=== PATIENT | female | born 1945 | race Caucasian/White ===

== ENCOUNTER 2017-07-14 04:58 | Inpatient (IN) | payer MEDICARE ==
[2017-07-14 05:56] LABS: Hematocrit 35 % (35-47); Hemoglobin 11.7 g/dl (12.0-16.0); Mean Corpuscular HGB Conc 34 g/dl (31-36); Mean Corpuscular Hemoglobin 31 pg (27-31); Mean Corpuscular Volume 90 fL (80-97); Mean Platelet Volume 8 um3 (7.4-10.4); Red Blood Count 3.85 10^6/ul (4.0-5.4); Red Cell Distribution Width 16 % (10.5-15); White Blood Count 7.7 10^3/ul (3.5-10.8)
[2017-07-14 06:13] LABS: Albumin 3.1 g/dL (3.2-5.2); Calcium 8.7 mg/dL (8.6-10.3); EGFR African American 69.7 (>60); EGFR Non-African American 54.2 (>60); Globulin 2.9 g/dL (2-4); Magnesium 1.9 mg/dL (1.9-2.7); Potassium 2.9 mmol/L (3.5-5.0); Troponin I 0.01 ng/mL (<0.04)
[2017-07-14] MEDS ORDERED: Potassium Chlor TAB* 20 MEQ TAB.ER PO ONE (06:24)
[2017-07-14 06:26] LABS: TSH (Thyroid Stimulating Horm) 2.22 mcIU/mL (0.34-5.60)
[2017-07-14] MEDS ORDERED: Potassium Chloride LIQUID* 20 MEQ PACKET ONE (06:35)
[2017-07-14] MEDS ORDERED: Potassium Chloride LIQUID* 20 MEQ PACKET PO ONE (06:36)
[2017-07-14] MEDS ORDERED: Vancomycin(*) 1,000 MG VIAL IVPB SCH (07:00)
[2017-07-14] MEDS ORDERED: cefTRIAXone(*) 1 GM in NS 0.9% 50 ML* 50 ML IVPB ONE (07:01)
[2017-07-14] MEDS ORDERED: Magnesium Sulfate 1 GM IV* 1 GM/100 ML BAG IV ONE (07:39)
[2017-07-14] MEDS ORDERED: Vancomycin(*) 1,000 MG in D5W 250 ML BAG* 250 ML IVPB ONE (08:00)
--- NOTE | 2017-07-14 08:04 | RAD ---
INDICATION: Chest pain COMPARISON: Most recent chest x-rays dated July 10, 2017 TECHNIQUE: Single AP portable view of the chest was obtained. FINDINGS: Image quality is compromised due to the relative inferiority of a portable chest x-ray. The left upper chest cardiac pacemaker with 2 leads overlying the heart is unchanged in position. The heart and mediastinum exhibit normal size and contour. There is worsening parenchymal density overlying the inferior portion of the right upper lobe with less well-defined density obscuring the bilateral lung bases. There is bibasilar costophrenic angle blunting.. Visualized bones are normal for the patient's age. IMPRESSION: Chest x-ray findings are consistent with worsening and more consolidative pneumonia and involving the inferior aspect of the right upper lobe. There is potentially a similar process at the bilateral lung bases.
[2017-07-14] MEDS: Dronedarone TAB* 400 MG PO SCH ×2 (09:57→22:11)
[2017-07-14] MEDS: Cholecalciferol TAB* 1000 UNITS PO SCH (09:57)
[2017-07-14] MEDS: Atorvastatin* 20 MG TAB PO SCH (09:57)
[2017-07-14] MEDS: Metoprolol Tartrate TAB* 25 MG PO SCH ×2 (09:57→22:11)
[2017-07-14] MEDS ORDERED: cefTRIAXone VIAL(*) 1,000 MG in D5W 50 ML BAG* 50 ML IVPB ONE (10:00)
--- NOTE | 2017-07-14 11:54 | HP ---
HISTORY AND PHYSICAL: DATE OF ADMISSION: 07/14/17 PRIMARY CARE PROVIDER: Manoj Velasquez DO PRIMARY ENTRY LEVEL PROJECT COORDINATOR: Dr. Milian. CHIEF COMPLAINT: Progressive shortness of breath, cough outpatient. HISTORY OF PRESENT ILLNESS: Angela Cohen is a 72-year-old female with history of atrial fibrillation on Coumadin, sick sinus syndrome, status post pacemaker, presenting with shortness of breath and cough, has been diagnosed with pneumonia as an outpatient after initially suffering from bronchitis for many weeks. This all started early May when she thinks she had the flu with her symptoms were stuffy nose/nasal congestion, but denies any headaches, fevers, body aches at that time. She states the symptoms progressed after a progressive postnasal drip occurring in early May. She has had mostly clear sputum productive cough, occasionally white and occasionally scant blood. She was prescribed azithromycin on 06/03/17, but called Dr. Milian who forbade her from taking it given interactions with her Coumadin potentially. Cephalexin was prescribed on 06/12/17, but the patient did not take it as she has had elevated INRs with that in the past, so doxycycline 100 mg b.i.d. was prescribed on 06/13/17. She took it for 3 days, checked her INR at home and it shot up to 8.8 and presented to the [facility] Emergency Room, where it was confirmed INR of 8.3 and she stopped the doxycycline and was off any other antibiotics. She still had the symptoms of the cough and eventually saw Dr. Velasquez again and was prescribed clindamycin 300 mg t.i.d., on 07/08/17, five days prior to presentation. She had a chest x-ray done on the , four days prior to presentation which was concerning for potential right-sided pneumonia. Since then, she still felt progressively worse. She denies fevers, but she has had some chills. She has had some dry heating associated with nausea secondary to the postnasal drainage. Her shortness of breath has gotten worse, where she can get winded after just walking across the room. She denies any palpitations. She checked her INR yesterday, it was 2.8, has been on her warfarin 5 mg daily. Has skipped some of her Lipitor, her magnesium and potassium supplementation. Last night, she had some chest pressure centrally that radiated to her back. No abdominal pain. On presentation to the emergency room, repeat imaging showed clear progression of the right-sided pneumonia which is more consolidative involving the inferior aspect of the right upper lobe and potentially involving the bilateral lung bases. She has been afebrile. No leukocytosis. Being admitted for pneumonia, failed outpatient treatment. PAST MEDICAL HISTORY: Atrial fibrillation on Coumadin, sick sinus syndrome, status post permanent pacemaker. MEDICATIONS: 1. Multaq 400 mg b.i.d. 2. Vitamin D 1000 units p.o. daily. 3. Metoprolol tartrate 50 mg b.i.d. 4. Magnesium 250 mg p.o. daily. 5. Atorvastatin 20 mg daily. 6. Warfarin 5 mg daily. 7. Potassium chloride 10 mEq b.i.d. ALLERGIES: PENICILLINS produced reported rash approximately 40 years ago. Also listed are AZITHROMYCIN, CEPHALEXIN, and DOXYCYCLINE given interactions with warfarin. FAMILY HISTORY: Mother with breast cancer metastatic to the brain. Dad with reported heart disease, at age 72. SOCIAL HISTORY: A never smoker. Occasionally drinks a glass of wine. Her medical surrogate is her daughter, Carmen Smith. REVIEW OF SYSTEMS: Complete 14-point review of systems is negative except as per HPI. PHYSICAL EXAMINATION GENERAL APPEARANCE: No acute distress, sitting in the hospital bed, nonlabored breathing. VITAL SIGNS: Blood pressure 135/92, respiratory rate 20 to 23, heart rate 96 to 100, temperature 98.4 on 2 L. HEENT: Normocephalic, atraumatic. Pupils equal, round, and reactive to light. Extraocular motions intact. Oral mucous membranes moist. No oropharynx lesions. NECK: Supple. PULMONARY: Coarse rhonchi in the middle right lung field. No rales, no wheezing. CARDIOVASCULAR: Regular rate and rhythm. No murmurs, rubs, or gallops. Slightly tachycardic. ABDOMEN: Soft, nontender, nondistended. No peritoneal signs. No rebound or guarding. No Busch's sign. EXTREMITIES: Warm and well perfused. Trace edema in the bilateral ankles. NEUROLOGICAL: Cranial nerves II through XII intact. Moving her extremities. Hip flexion 5/5. Family Manager strength 5/5. SKIN: No rashes. No lesions. LABORATORY DATA: White count 7.7, hemoglobin 11.7, hematocrit 35, platelets 235,000. INR 4.38, PTT 44.6, sodium 137, potassium 2.9, chloride 100, carbon dioxide 28, BUN 12, creatinine 1.00, glucose 111, TSH 2.22, total protein 6.0. LFTs within normal limits. IMAGING: Chest x-ray consistent with worsening and more consolidative pneumonia involving the inferior aspect of the right upper lobe. This potentially is bilateral lung bases. EKG: Atrial fibrillation, Q-wave in V1, QRS interval 173, looks paced. ASSESSMENT AND PLAN: 1. Angela Cohen is a 72-year-old female with atrial fibrillation on Coumadin, presenting with progressive lower right upper lobe pneumonia, has failed clindamycin and had interactions with doxycycline. She had been admitted for pneumonia. Vancomycin will be continued along with ceftriaxone. We will get streptococcus pneumonia urine antigen, sputum culture, blood culture, urinalysis. She is nontoxic appearing. 2. For her atrial fibrillation, we will continue her Multaq 400 mg b.i.d., aggressively replete her electrolytes as needed to keep potassium above 4, magnesium above 2. Her INR is elevated at 4.3. We will hold her warfarin and monitor daily. We will also continue metoprolol 50 mg b.i.d. She is a full code. She can eat a heart healthy diet. Medical surrogate is daughter, Carmen Smith. [id number]/[facility] #: [id number] [facility]
[2017-07-14 15:34] LABS: Urine Bacteria Absent (Absent); Urine Bilirubin Negative (Negative); Urine Glucose Negative (Negative); Urine Nitrite Negative (Negative)
[2017-07-15 07:48] LABS: Hematocrit 33 % (35-47); Hemoglobin 10.9 g/dl (12.0-16.0); Mean Corpuscular HGB Conc 33 g/dl (31-36); Mean Corpuscular Hemoglobin 30 pg (27-31); Mean Corpuscular Volume 91 fL (80-97); Mean Platelet Volume 8 um3 (7.4-10.4); Red Blood Count 3.65 10^6/ul (4.0-5.4); Red Cell Distribution Width 16 % (10.5-15); White Blood Count 5.4 10^3/ul (3.5-10.8)
[2017-07-15 08:12] LABS: BUN/Creatinine Ratio 9.8 (8-20); Calcium 8.5 mg/dL (8.6-10.3); EGFR African American 68.1 (>60); Potassium 3.6 mmol/L (3.5-5.0)
[2017-07-15] MEDS: Potassium Chlor TAB* 10 MEQ TAB.ER PO SCH ×2 (08:16→20:38)
[2017-07-15] MEDS: Atorvastatin* 20 MG TAB PO SCH (08:16)
[2017-07-15] MEDS: Metoprolol Tartrate TAB* 25 MG PO SCH ×2 (08:16→20:38)
[2017-07-15] MEDS: Dronedarone TAB* 400 MG PO SCH ×2 (08:16→20:38)
[2017-07-15] MEDS: Magnesium Oxide TAB* 400 MG PO SCH (08:16)
[2017-07-15] MEDS: cefTRIAXone VIAL(*) 1,000 MG in D5W 50 ML BAG* 50 ML IVPB SCH (08:17)
[2017-07-15] MEDS: Cholecalciferol TAB* 1000 UNITS PO SCH (08:17)
[2017-07-15] MEDS: Warfarin TAB(*) 4 MG PO SCH (16:18)
--- NOTE | 2017-07-15 16:34 | PN ---
Subjective Date of Service: 07/15/17 Interval History: Patient states she feels much better today. Had one episode of hypoxia when ambulating to the bathroom without oxygen on. Patient's oxygen was able to be weaned down to 1L at rest. Patient has a non productive cough that has decreased in frequency since being admitted. Patient has continued post nasal drip which has been making her nauseated. Patient denies CP, Increased SOB, Vomiting, F/C, abdominal Pain, dysuria, or other pain. Family History: Unchanged from Admission Social History: Unchanged from Admission Past Medical History: Unchanged from Admission Objective Active Medications: Atorvastatin Calcium (Lipitor*) 20 mg PO DAILY [facility] Last Admin: 07/15/17 08:16 Dose: 20 mg Cholecalciferol (Vitamin D Tab*) 1,000 units PO DAILY [facility] Last Admin: 07/15/17 08:17 Dose: 1,000 units Dronedarone (Multaq Tab*) 400 mg PO BID [facility] Last Admin: 07/15/17 08:16 Dose: 400 mg Guaifenesin (Mucinex*) 1,200 mg PO BID [facility] Ceftriaxone Sodium 1,000 mg/ (Dextrose) 50 mls @ 200 mls/hr IVPB Q24H [facility] Last Admin: 07/15/17 08:17 Dose: 200 mls/hr Magnesium Oxide (Magox 400 Tab*) 400 mg PO DAILY [facility] Last Admin: 07/15/17 08:16 Dose: 400 mg Metoprolol Tartrate (Lopressor Tab*) 50 mg PO BID [facility] Last Admin: 07/15/17 08:16 Dose: 50 mg Potassium Chloride (Klor Con Er Tab*) 10 meq PO BID [facility] Last Admin: 07/15/17 08:16 Dose: 10 meq Warfarin Sodium (Coumadin Tab(*)) 4 mg PO DAILY@1700 [facility] PRN Reason: Protocol Last Admin: 07/15/17 16:18 Dose: 4 mg Vital Signs 07/14/17 07/14/17 07/14/17 19:55 20:00 23:44 Temperature 98.1 F 97.8 F Pulse Rate 95 81 Respiratory 16 16 20 Rate Blood Pressure 144/90 119/76 (mmHg) O2 Sat by Pulse 93 96 Oximetry 07/15/17 07/15/17 07/15/17 03:48 08:00 08:41 Temperature 98.4 F 98.8 F Pulse Rate 92 82 Respiratory 20 16 16 Rate Blood Pressure 171/92 127/71 (mmHg) O2 Sat by Pulse 97 97 Oximetry 07/15/17 11:49 Temperature 98.4 F Pulse Rate 94 Respiratory 16 Rate Blood Pressure 115/79 (mmHg) O2 Sat by Pulse 96 Oximetry Oxygen Devices in Use Now: Nasal Cannula - 1L Appearance: Patient is a 72yo female who appears stated age and is sitting in the bed in NAD. Eyes: No Scleral Icterus, PERRLA Ears/Nose/Mouth/Throat: NL Teeth, Lips, Gums, Clear Oropharnyx, Mucous Membranes Moist, - - No Post Nasal Drip Noted Neck: NL Appearance and Movements; NL JVP, Trachea Midline Respiratory: Symmetrical Chest Expansion and Respiratory Effort, - - Slight wheezes in right middle lobe. Cardiovascular: NL Sounds; No Murmurs; No JVD, No Edema, - - Irregulary Irregular rhythm. Abdominal: NL Sounds; No Tenderness; No Distention, No Hepatosplenomegaly Lymphatic: No Cervical Adenopathy Extremities: No Edema, No Clubbing, Cyanosis Skin: No Rash or Ulcers, No Nodules or Sclerosis Neurological: Alert and Oriented x 3 Result Diagrams: 07/15/17 07:38 07/15/17 16:11 Microbiology and Other Data: Microbiology 07/14/17 07:27 Aerobic Blood Culture - Preliminary Blood Venous No Growth Day 1 Anaerobic Blood Culture - Preliminary No Growth Day 1 07/14/17 07:18 Aerobic Blood Culture - Preliminary Blood Venous No Growth Day 1 Anaerobic Blood Culture - Preliminary No Growth Day 1 07/14/17 15:00 Nasal Screen MRSA (PCR)(KAMALJIT) - Final Nasal Mrsa Negative 07/14/17 15:00 Streptococcus pneumoniae Ag Screen - Final Urine Negative S. pneumo Antigen Assess/Plan/Problems-Billing Assessment: Patient is a 72yo female with a PMH significant for Afib on coumadin, and SSS with pacemaker who presents with lobar pneumonia after URI in May who is improving on Ceftriaxone. - Patient Problems (1) Community acquired pneumonia Current Visit: Yes Status: Acute Code(s): J18.9 - PNEUMONIA, UNSPECIFIED ORGANISM SNOMED Code(s): 732003476 Comment: RUL pneumonia, treated briefly and unsuccessfully with Azithromycin, Keflex, Clindamycin, and Doxycycline. Keflex and Doxycycline made coumadin supratherapeutic. Azithromycin not used for concerns of interactions with Multaq. Clindamycin course completed with no effect. Improving on Ceftriaxone. ID consult pending for recommendations on Atypical Bacteria coverage. (2) Afib Current Visit: Yes Status: Acute Code(s): I48.91 - UNSPECIFIED ATRIAL FIBRILLATION SNOMED Code(s): 16289390 Comment: Patient is in Afib with RBBB. Patient is anticoagulated on coumadin with a most recent INR of 2.93. Will restart Warfarin at 4mg dose and monitor. (3) Coumadin toxicity Current Visit: Yes Status: Acute Code(s): T45.511A - POISONING BY ANTICOAGULANTS, ACCIDENTAL, INIT SNOMED Code(s): 38111179 Comment: INR at 4.30 at admission. Down to 2.93. Will monitor. (4) Hyperlipidemia Current Visit: Yes Status: Acute Code(s): E78.5 - HYPERLIPIDEMIA, UNSPECIFIED SNOMED Code(s): 02487142 Comment: Continue Atorvastatin (5) Pacemaker Current Visit: Yes Status: Acute Code(s): Z95.0 - PRESENCE OF CARDIAC PACEMAKER SNOMED Code(s): 063201407 Comment: For SSS. Had run of 7 paced beats which was asymptomatic. Electrolytes pending. (6) QT prolongation Current Visit: Yes Status: Acute Code(s): R94.31 - ABNORMAL ELECTROCARDIOGRAM [ECG] [EKG] SNOMED Code(s): 140003759 Comment: QTc at 580 at admission, Decreased to 560 after repletion of Mg++ and K+. Will recheck and attempt to keep above 2.0 and 4.0 respectively. Will avoid QT prolonging drugs. On dronaderone. (7) DVT prophylaxis Current Visit: Yes Status: Acute Code(s): VGX2190 - SNOMED Code(s): 067121402 Comment: Therapeutic on Warfarin (8) Full code status Current Visit: Yes Status: Acute Code(s): Z78.9 - OTHER SPECIFIED HEALTH STATUS SNOMED Code(s): 109550616 Status and Disposition: Patient is admitted inpatient, will discharge when medically stable.
[2017-07-15 16:55] LABS: BUN/Creatinine Ratio 11.5 (8-20); Calcium 8.8 mg/dL (8.6-10.3); EGFR African American 60.5 (>60); EGFR Non-African American 47.1 (>60); Magnesium 2.3 mg/dL (1.9-2.7); Potassium 4.1 mmol/L (3.5-5.0)
[2017-07-15] MEDS: guaiFENesin ER TAB 600 MG PO SCH (20:38)
[2017-07-15] MEDS ORDERED: LORazepam INJ* 2 MG/ML 1 ML VIAL IV PRN (23:30)
[2017-07-16 06:25] LABS: Hematocrit 35 % (35-47); Hemoglobin 11.7 g/dl (12.0-16.0); Mean Corpuscular HGB Conc 33 g/dl (31-36); Mean Corpuscular Hemoglobin 30 pg (27-31); Mean Corpuscular Volume 91 fL (80-97); Mean Platelet Volume 8 um3 (7.4-10.4); Red Cell Distribution Width 17 % (10.5-15); White Blood Count 6.3 10^3/ul (3.5-10.8)
[2017-07-16 06:39] LABS: Calcium 8.9 mg/dL (8.6-10.3); EGFR African American 75.8 (>60); EGFR Non-African American 58.9 (>60); Magnesium 2.2 mg/dL (1.9-2.7); Potassium 3.7 mmol/L (3.5-5.0)
[2017-07-16] MEDS: cefTRIAXone VIAL(*) 1,000 MG in D5W 50 ML BAG* 50 ML IVPB SCH (08:19)
[2017-07-16] MEDS: Metoprolol Tartrate TAB* 25 MG PO SCH ×2 (08:20→19:58)
[2017-07-16] MEDS: Cholecalciferol TAB* 1000 UNITS PO SCH (08:20)
[2017-07-16] MEDS: guaiFENesin ER TAB 600 MG PO SCH ×2 (08:20→19:57)
[2017-07-16] MEDS: Atorvastatin* 20 MG TAB PO SCH (08:20)
[2017-07-16] MEDS: Dronedarone TAB* 400 MG PO SCH ×2 (08:20→19:58)
[2017-07-16] MEDS: Potassium Chlor TAB* 10 MEQ TAB.ER PO SCH ×2 (08:20→19:58)
[2017-07-16] MEDS: Magnesium Oxide TAB* 400 MG PO SCH (08:20)
--- NOTE | 2017-07-16 13:47 | PN ---
Subjective Date of Service: 07/16/17 Interval History: Patient had episode of delirium overnight presumably due to ativan. Patient does not remember anything after the injection. Patient has moderate nausea and GERD discomfort. Patient SOB when walking to the BR. O2 increased back to 1.5L due to hypoxia after ambulation. Patient denies other CP, Abdominal pain, Constipation, diarrhea, dysuria, or other pain. Patient denies F/C, palpitations , dizziness or other signs of arrhythmia. Family History: Unchanged from Admission Social History: Unchanged from Admission Past Medical History: Unchanged from Admission Objective Active Medications: Atorvastatin Calcium (Lipitor*) 20 mg PO DAILY [facility] Last Admin: 07/16/17 08:20 Dose: 20 mg Cholecalciferol (Vitamin D Tab*) 1,000 units PO DAILY [facility] Last Admin: 07/16/17 08:20 Dose: 1,000 units Dronedarone (Multaq Tab*) 400 mg PO BID [facility] Last Admin: 07/16/17 08:20 Dose: 400 mg Guaifenesin (Mucinex*) 1,200 mg PO BID [facility] Last Admin: 07/16/17 08:20 Dose: 1,200 mg Ceftriaxone Sodium 1,000 mg/ (Dextrose) 50 mls @ 200 mls/hr IVPB Q24H [facility] Last Admin: 07/16/17 08:19 Dose: 200 mls/hr Magnesium Oxide (Magox 400 Tab*) 400 mg PO DAILY [facility] Last Admin: 07/16/17 08:20 Dose: 400 mg Metoprolol Tartrate (Lopressor Tab*) 50 mg PO BID [facility] Last Admin: 07/16/17 08:20 Dose: 50 mg Potassium Chloride (Klor Con Er Tab*) 10 meq PO BID [facility] Last Admin: 07/16/17 08:20 Dose: 10 meq Warfarin Sodium (Coumadin Tab(*)) 4 mg PO DAILY@1700 [facility] PRN Reason: Protocol Last Admin: 07/15/17 16:18 Dose: 4 mg Vital Signs - 8 hr 07/16/17 07/16/17 07/16/17 08:00 08:17 11:20 Temperature 97.3 F Pulse Rate 114 95 Respiratory 18 18 20 Rate Blood Pressure 123/86 138/78 (mmHg) O2 Sat by Pulse 95 96 Oximetry Oxygen Devices in Use Now: Nasal Cannula - 1.5L Appearance: Patient is a 72yo female who appears younger than stated age and is sitting in the bed in NAD. Eyes: No Scleral Icterus, PERRLA Ears/Nose/Mouth/Throat: NL Teeth, Lips, Gums, Clear Oropharnyx, Mucous Membranes Moist Neck: NL Appearance and Movements; NL JVP, Trachea Midline Respiratory: Symmetrical Chest Expansion and Respiratory Effort, Clear to Auscultation Cardiovascular: NL Sounds; No Murmurs; No JVD, RRR, - - 1+ symmetrical edema in B/L LE. Pulses 2+ in B/L Radial, DP and PT areas. Abdominal: NL Sounds; No Tenderness; No Distention, No Hepatosplenomegaly Lymphatic: No Cervical Adenopathy Extremities: No Edema, No Clubbing, Cyanosis Skin: No Rash or Ulcers, No Nodules or Sclerosis Neurological: Alert and Oriented x 3 Result Diagrams: 07/16/17 06:02 07/16/17 06:02 Microbiology and Other Data: Microbiology 07/14/17 07:27 Aerobic Blood Culture - Preliminary Blood Venous No Growth Day 1 Anaerobic Blood Culture - Preliminary No Growth Day 1 07/14/17 07:18 Aerobic Blood Culture - Preliminary Blood Venous No Growth Day 1 Anaerobic Blood Culture - Preliminary No Growth Day 1 07/14/17 15:00 Nasal Screen MRSA (PCR)(KAMALJIT) - Final Nasal Mrsa Negative 07/14/17 15:00 Streptococcus pneumoniae Ag Screen - Final Urine Negative S. pneumo Antigen Assess/Plan/Problems-Billing Assessment: Patient is a 72yo female with a PMH significant for Afib on coumadin, and SSS with pacemaker who presents with lobar pneumonia after URI in May who is improving on Ceftriaxone. - Patient Problems (1) Community acquired pneumonia Current Visit: Yes Status: Acute Code(s): J18.9 - PNEUMONIA, UNSPECIFIED ORGANISM SNOMED Code(s): 776068182 Comment: RUL pneumonia, treated briefly and unsuccessfully with Azithromycin, Keflex, Clindamycin, and Doxycycline. Keflex and Doxycycline made coumadin supratherapeutic. Azithromycin not used for concerns of interactions with Multaq. Clindamycin course completed with no effect. Improving on Ceftriaxone. Appreciate ID consult. States ok for no Atypical Bacteria coverage at this time due to improvement. (2) Afib Current Visit: Yes Status: Acute Code(s): I48.91 - UNSPECIFIED ATRIAL FIBRILLATION SNOMED Code(s): 60623111 Comment: Patient is in Afib with RBBB. Patient is anticoagulated on coumadin with a most recent INR of 2.41. Wafarin at 5mg today (3) Coumadin toxicity Current Visit: Yes Status: Acute Code(s): T45.511A - POISONING BY ANTICOAGULANTS, ACCIDENTAL, INIT SNOMED Code(s): 97530038 Comment: INR at 4.30 at admission. Down to 2.41. Will monitor. (4) Hyperlipidemia Current Visit: Yes Status: Acute Code(s): E78.5 - HYPERLIPIDEMIA, UNSPECIFIED SNOMED Code(s): 09662796 Comment: Continue Atorvastatin (5) Pacemaker Current Visit: Yes Status: Acute Code(s): Z95.0 - PRESENCE OF CARDIAC PACEMAKER SNOMED Code(s): 221173616 Comment: For SSS. Had run of 7 paced beats which was asymptomatic. Electrolytes normal. (6) QT prolongation Current Visit: Yes Status: Acute Code(s): R94.31 - ABNORMAL ELECTROCARDIOGRAM [ECG] [EKG] SNOMED Code(s): 435318783 Comment: QTc at 580 at admission, Decreased to 560 after repletion of Mg++ and K+. Will recheck and attempt to keep above 2.0 and 4.0 respectively. Will avoid QT prolonging drugs. On dronaderone. (7) DVT prophylaxis Current Visit: Yes Status: Acute Code(s): CUM6070 - SNOMED Code(s): 861342346 Comment: Therapeutic on Warfarin (8) Full code status Current Visit: Yes Status: Acute Code(s): Z78.9 - OTHER SPECIFIED HEALTH STATUS SNOMED Code(s): 095115918 Status and Disposition: Patient is admitted inpatient, will discharge when medically stable.
[2017-07-16] MEDS: Warfarin TAB(*) 4 MG PO SCH (17:20)
--- NOTE | 2017-07-16 20:36 | CONS ---
CONSULTATION REPORT: DATE OF CONSULT: 07/16/17 REQUESTING PROVIDER: SARY Lozano CONSULTING SERVICE: Infectious Disease. REASON FOR CONSULTATION: Pneumonia, multiple drug interaction. IMPRESSION: 1. Right upper lobe infiltrate with cough and dyspnea, she has community- acquired pneumonia, usual organism including viral, strep, haemophilus. She is improving on broad-spectrum antibiotics. There is concern about atypical coverage given interaction between azithromycin and Multaq, Levaquin and Multaq , and doxycycline and warfarin. 2. Atrial fibrillation. 3. Acute hypoxemic respiratory failure. RECOMMENDATION: Continue ceftriaxone 1 g a day and given that she is continuing to improve, we will hold off on broadening her coverage. We will follow her oxygen requirement and overall sense of well being here. She has not had a fever, so alternatively could also follow a C-reactive protein. HISTORY OF PRESENT ILLNESS: This is a 72-year-old woman with atrial fibrillation on Multaq, admitted with cough and malaise. She has had a couple of upper respiratory infections over the last few months. She had a nonproductive cough earlier in June, had seen Dr. Velasquez. She took azithromycin for a couple of days without much improvement. There is an interaction with Multaq, so that is stopped. She has more recently been on clindamycin without improvement. This weekend she had worsening cough, malaise , and sick of a cough, so she summoned ambulance to bring her into the ER where she had a normal white count. Her chest x-ray showed a right upper lobe infiltrate. She has been afebrile and normotensive. She is on 3 L of oxygen saturating in the mid 90s. Today, she feels like her cough is improved. It is still nonproductive. There has also been no hemoptysis. She has no chest pain. No fevers, chills, or sweats. Her weight has been steady. She has been eating okay. She has not recently had pneumonia. She has had bronchitis a couple of times in the past. PAST MEDICAL HISTORY: 1. Atrial fibrillation. 2. Sick sinus syndrome, status post pacemaker placement. MEDICATIONS: 1. Lipitor. 2. Ceftriaxone. 3. Cholecalciferol. 4. Dronedarone. 5. Guaifenesin tablet. 6. Magnesium oxide. 7. Metoprolol. 8. Warfarin. ALLERGIES: PENICILLIN caused rash. FAMILY HISTORY: Mother with breast cancer. Father had coronary artery disease , at 72. SOCIAL HISTORY: Nonsmoker. Drinks alcohol. Lives in [place] by herself. REVIEW OF SYSTEMS: A 14-point review of systems was negative except as noted above. PHYSICAL EXAM: Vital Signs: Temperature is 36, heart rate 90, respiratory rate 20, blood pressure 140/70, O2 sat 96% on 3 L. In general, she is awake and not in distress. Neurologic: She is oriented x3. Follows all commands. Moves all extremities. HEENT: There is no conjunctival hemorrhage. Oropharynx without thrush. Lymph Nodes: There is no cervical, inguinal, axillary, or epitrochlear lymphadenopathy. Heart is regular rate and rhythm without murmurs , rubs, or gallops. Lungs are clear to auscultation bilaterally. Abdomen: Soft, nontender, nondistended. There are bowel sounds present. Skin: There is no rash or splinter hemorrhages. Musculoskeletal: There is spine tenderness to palpation. DIAGNOSTIC STUDIES/LAB DATA: White blood cell count of 6, hemoglobin 11.7, platelets 225, creatinine 0.9. Chest x-ray shows in the lower segment of the right upper lobe, there is an infiltrate. Blood cultures are negative 48 hours. Urine Legionella and pneumococcal antigens are negative. Please see impressions and recommendations outlined above, which I have discussed with SARY Lozano. Thank you for asking me to see Ms. Cohen in consultation. [id number]/[facility] #: [id number] MTDD
[2017-07-17] MEDS: Acetaminophen TAB* 325 MG PO PRN (01:59)
[2017-07-17] MEDS ORDERED: Albuterol 2.5 MG/3 ML NEB.SOL* (0.083%) INH PRN (08:23)
[2017-07-17] MEDS: Metoprolol Tartrate TAB* 25 MG PO SCH ×2 (09:10→19:50)
[2017-07-17] MEDS: Atorvastatin* 20 MG TAB PO SCH (09:10)
[2017-07-17] MEDS: Potassium Chlor TAB* 10 MEQ TAB.ER PO SCH ×2 (09:11→19:50)
[2017-07-17] MEDS: Cholecalciferol TAB* 1000 UNITS PO SCH (09:11)
[2017-07-17] MEDS: Dronedarone TAB* 400 MG PO SCH ×2 (09:11→19:51)
[2017-07-17] MEDS: guaiFENesin ER TAB 600 MG PO SCH ×2 (09:11→19:50)
[2017-07-17] MEDS: Magnesium Oxide TAB* 400 MG PO SCH (09:11)
[2017-07-17] MEDS: cefTRIAXone VIAL(*) 1,000 MG in D5W 50 ML BAG* 50 ML IVPB SCH (09:11)
[2017-07-17 10:14] LABS: Hematocrit 40 % (35-47); Hemoglobin 12.9 g/dl (12.0-16.0); Mean Corpuscular HGB Conc 33 g/dl (31-36); Mean Corpuscular Hemoglobin 30 pg (27-31); Mean Corpuscular Volume 91 fL (80-97); Mean Platelet Volume 8 um3 (7.4-10.4); Red Blood Count 4.34 10^6/ul (4.0-5.4); Red Cell Distribution Width 16 % (10.5-15); White Blood Count 6.6 10^3/ul (3.5-10.8)
[2017-07-17 10:30] LABS: BUN/Creatinine Ratio 13.9 (8-20); C Reactive Protein 12.24 mg/L (< 5.00); Calcium 9.1 mg/dL (8.6-10.3); EGFR African American 68.9 (>60); EGFR Non-African American 53.6 (>60); Magnesium 2.3 mg/dL (1.9-2.7); Potassium 3.9 mmol/L (3.5-5.0)
[2017-07-17] MEDS ORDERED: Calcium Carbonate CHEW TAB* 500 MG (TUMS) PO PRN (13:16)
[2017-07-17] MEDS: Warfarin TAB(*) 5 MG PO SCH (17:07)
--- NOTE | 2017-07-17 18:24 | PN ---
Subjective Date of Service: 07/17/17 Interval History: Patient complains of continuing SOB and fatigue. Patient also complains of increased swelling in legs. Patient has been in afib/flutter on monitoring consistently since being admitted. Patient is usually somewhat SOB when in afib , patient in afib 24% of the time according to outpatient event monitor. Patient able to be on RA at rest this morning. Patient more anxious than usual overnight. Patient states she has pain in epigastric area that feels like gas several times during the day. Patient denies dysuria, dizziness, N/V, Abdominal pain, F/C, or other pain. Family History: Unchanged from Admission Social History: Unchanged from Admission Past Medical History: Unchanged from Admission Objective Active Medications: Acetaminophen (Tylenol Tab*) 650 mg PO Q4H PRN PRN Reason: PAIN Last Admin: 07/17/17 01:59 Dose: 650 mg Albuterol (Ventolin 2.5 Mg/3 Ml Neb.Chaya*) 2.5 mg INH Q4H PRN PRN Reason: SOB/WHEEZING Atorvastatin Calcium (Lipitor*) 20 mg PO DAILY [facility] Last Admin: 07/17/17 09:10 Dose: 20 mg Calcium Carbonate (Tums*) 500 mg PO Q4H PRN PRN Reason: INDIGESTION Cholecalciferol (Vitamin D Tab*) 1,000 units PO DAILY [facility] Last Admin: 07/17/17 09:11 Dose: 1,000 units Dronedarone (Multaq Tab*) 400 mg PO BID [facility] Last Admin: 07/17/17 09:11 Dose: 400 mg Guaifenesin (Mucinex*) 1,200 mg PO BID [facility] Last Admin: 07/17/17 09:11 Dose: 1,200 mg Ceftriaxone Sodium 1,000 mg/ (Dextrose) 50 mls @ 200 mls/hr IVPB Q24H [facility] Last Admin: 07/17/17 09:11 Dose: 200 mls/hr Magnesium Oxide (Magox 400 Tab*) 400 mg PO DAILY [facility] Last Admin: 07/17/17 09:11 Dose: 400 mg Metoprolol Tartrate (Lopressor Tab*) 50 mg PO BID [facility] Last Admin: 07/17/17 09:10 Dose: 50 mg Potassium Chloride (Klor Con Er Tab*) 10 meq PO BID [facility] Last Admin: 07/17/17 09:11 Dose: 10 meq Warfarin Sodium (Coumadin Tab(*)) 5 mg PO DAILY@1700 CAMRYN PRN Reason: Protocol Last Admin: 07/17/17 17:07 Dose: 5 mg Vital Signs - 8 hr 07/17/17 07/17/17 11:20 15:11 Temperature 97.2 F Pulse Rate 89 93 Respiratory 20 20 Rate Blood Pressure 144/77 131/86 (mmHg) O2 Sat by Pulse 93 99 Oximetry Oxygen Devices in Use Now: None Appearance: Patient is a 72yo female who appears stated age and is sitting in the bed in [facility]. Eyes: No Scleral Icterus, PERRLA Ears/Nose/Mouth/Throat: NL Teeth, Lips, Gums, Clear Oropharnyx, Mucous Membranes Moist, - - No PND. Neck: NL Appearance and Movements; NL JVP, Trachea Midline Respiratory: Symmetrical Chest Expansion and Respiratory Effort, - - Slight wheezes scattered throughout B/L. Cardiovascular: NL Sounds; No Murmurs; No JVD, No Edema, - - Irregularly irregular rhythm. Abdominal: NL Sounds; No Tenderness; No Distention, No Hepatosplenomegaly Lymphatic: No Cervical Adenopathy Extremities: No Clubbing, Cyanosis, - - 1+ pitting edema in B/L LE. Skin: No Rash or Ulcers, No Nodules or Sclerosis Neurological: Alert and Oriented x 3, - - CN II-XII intact. Result Diagrams: 07/17/17 09:51 07/17/17 09:51 Microbiology and Other Data: Microbiology Microbiology 07/14/17 07:27 Aerobic Blood Culture - Preliminary Blood Venous No Growth Day 3 Anaerobic Blood Culture - Preliminary No Growth Day 3 07/14/17 07:18 Aerobic Blood Culture - Preliminary Blood Venous No Growth Day 3 Anaerobic Blood Culture - Preliminary No Growth Day 3 07/14/17 15:00 Urine Culture - Final Urine No Growth (<1,000 CFU/mL) 07/15/17 19:20 Legionella Urinary Antigen - Final Urine Negative Legionella 07/14/17 15:00 Nasal Screen MRSA (PCR)(KAMALJIT) - Final Nasal Mrsa Negative 07/14/17 15:00 Streptococcus pneumoniae Ag Screen - Final Urine Negative S. pneumo Antigen Assess/Plan/Problems-Billing Assessment: Patient is a 72yo female with a PMH significant for Afib on coumadin, and SSS with pacemaker who presents with lobar pneumonia after URI in May who is improving on Ceftriaxone. - Patient Problems (1) Community acquired pneumonia Current Visit: Yes Status: Acute Code(s): J18.9 - PNEUMONIA, UNSPECIFIED ORGANISM SNOMED Code(s): 125563417 Comment: RUL pneumonia, treated briefly and unsuccessfully with Azithromycin, Keflex, Clindamycin, and Doxycycline. Keflex and Doxycycline made coumadin supratherapeutic. Azithromycin not used for concerns of interactions with Multaq. Clindamycin course completed with no effect. Improving on Ceftriaxone. Appreciate ID consult. States ok for no Atypical Bacteria coverage at this time due to improvement. Will track CRP during hospital stay. (2) Afib Current Visit: Yes Status: Acute Code(s): I48.91 - UNSPECIFIED ATRIAL FIBRILLATION SNOMED Code(s): 23852064 Comment: Patient is in Afib with RBBB. Patient is anticoagulated on coumadin with a most recent INR of 1.84. Wafarin at 5mg today (3) Coumadin toxicity Current Visit: Yes Status: Acute Code(s): T45.511A - POISONING BY ANTICOAGULANTS, ACCIDENTAL, INIT SNOMED Code(s): 48485942 Comment: INR at 4.30 at admission. Down to 1.84 and subtherapeutic. (4) Hyperlipidemia Current Visit: Yes Status: Acute Code(s): E78.5 - HYPERLIPIDEMIA, UNSPECIFIED SNOMED Code(s): 02567928 Comment: Continue Atorvastatin (5) Pacemaker Current Visit: Yes Status: Acute Code(s): Z95.0 - PRESENCE OF CARDIAC PACEMAKER SNOMED Code(s): 435960967 Comment: For SSS. Had run of 7 paced beats which was asymptomatic. Electrolytes normal. (6) QT prolongation Current Visit: Yes Status: Acute Code(s): R94.31 - ABNORMAL ELECTROCARDIOGRAM [ECG] [EKG] SNOMED Code(s): 163269002 Comment: QTc at 580 at admission, Decreased to 560 after repletion of Mg++ and K+. Will recheck and attempt to keep above 2.0 and 4.0 respectively. Will avoid QT prolonging drugs. On dronaderone. (7) Delirium Current Visit: Yes Status: Acute Code(s): R41.0 - DISORIENTATION, UNSPECIFIED SNOMED Code(s): 7421547 Comment: Patient has had 2 episodes of being delirious and combative in the middle of the night when being woken up for services. Once associated with lorazepam and continues tonight, Will attempt to minimize interruptions to sleeping to maximize patient safety. (8) DVT prophylaxis Current Visit: Yes Status: Acute Code(s): HZR0608 - SNOMED Code(s): 586391318 Comment: Subtherapeutic on Warfarin, will bridge if does not increase. (9) Full code status Current Visit: Yes Status: Acute Code(s): Z78.9 - OTHER SPECIFIED HEALTH STATUS SNOMED Code(s): 846881443 Status and Disposition: Patient is admitted inpatient, will discharge when medically stable.
[2017-07-18] MEDS: Acetaminophen TAB* 325 MG PO PRN (00:48)
[2017-07-18 05:37] LABS: Hematocrit 36 % (35-47); Hemoglobin 12.2 g/dl (12.0-16.0); Mean Corpuscular HGB Conc 34 g/dl (31-36); Mean Corpuscular Hemoglobin 31 pg (27-31); Mean Corpuscular Volume 91 fL (80-97); Mean Platelet Volume 8 um3 (7.4-10.4); Red Blood Count 4.01 10^6/ul (4.0-5.4); Red Cell Distribution Width 16 % (10.5-15); White Blood Count 7.4 10^3/ul (3.5-10.8)
[2017-07-18 05:58] LABS: BUN/Creatinine Ratio 18.9 (8-20); C Reactive Protein 11.01 mg/L (< 5.00); Calcium 8.8 mg/dL (8.6-10.3); EGFR African American 78.7 (>60); EGFR Non-African American 61.2 (>60); Magnesium 2.2 mg/dL (1.9-2.7); Potassium 4.2 mmol/L (3.5-5.0)
[2017-07-18] MEDS: cefTRIAXone VIAL(*) 1,000 MG in D5W 50 ML BAG* 50 ML IVPB SCH (08:49)
[2017-07-18] MEDS: Dronedarone TAB* 400 MG PO SCH (08:49)
[2017-07-18] MEDS: Potassium Chlor TAB* 10 MEQ TAB.ER PO SCH ×2 (08:50→20:52)
[2017-07-18] MEDS: Metoprolol Tartrate TAB* 25 MG PO SCH ×2 (08:50→20:52)
[2017-07-18] MEDS: Magnesium Oxide TAB* 400 MG PO SCH (08:50)
[2017-07-18] MEDS: guaiFENesin ER TAB 600 MG PO SCH ×2 (08:50→20:52)
[2017-07-18] MEDS: Cholecalciferol TAB* 1000 UNITS PO SCH (08:50)
[2017-07-18] MEDS: Atorvastatin* 20 MG TAB PO SCH (08:50)
[2017-07-18] MEDS ORDERED: Furosemide TAB* 20 MG PO ONE (10:42)
[2017-07-18] MEDS ORDERED: Perflutren Lipid Microsphere* 3 ML VIAL ONE (11:23)
--- NOTE | 2017-07-18 12:56 | ECHO ---
Patient: RADHA NUNEZ [facility] Rec#: [id number] : 1945 Date: 07/18/2017 Age: 72y Height: 167.64 cm / 66.0 in Weight: 89.36 kg / 196.9 lbs Sex: F BSA: 1.99 Room#: [facility] Admit Date#: 07/14/2017 Type: Inpatient Referring: Nicola Perkins MD Reading: Piotr Guzman MD [employer]: Lazara Beverly,LUCYCS,RDMS CC: Manoj Velasquez DO CC: Harley Milian MD Transthoracic Echocardiogram Indication: Edema, Afib BP: 129/92 HR: 83 Rhythm: A-Fib Findings History: AFIB, SSS, HLD, pacemaker Technical Comments: The study quality is fair. Completed 1210 Left Ventricle: The left ventricular chamber size is normal. Mild concentric left ventricular hypertrophy is observed. There is severely decreased left ventricular systolic function.There appears to thinning of the mid to distal septal wall with dyskinetic wall motion. The estimated ejection fraction is 20-25%. The left ventricular diastolic filling pattern is restrictive. Left Atrium: The left atrium is moderate to severely dilated. Right Ventricle: The right ventricle wall thickness is mildly increased. The right ventricular cavity size is normal. The right ventricular global systolic function is mildly to moderately reduced. Right Atrium: The right atrium is moderate to severely dilated. Aortic Valve: The aortic valve is trileaflet. The aortic valve leaflets are mildly thickened. There is trace to mild aortic regurgitation. There is no evidence of aortic stenosis. Mitral Valve: The mitral valve leaflets are mildly thickened. There is moderate to severe mitral regurgitation. There is no evidence of mitral stenosis. Tricuspid Valve: The tricuspid valve leaflets are normal. There is moderate tricuspid regurgitation.In limited views , possibly moderate to severe. The tricuspid regurgitant jet is directed toward the septum. The right ventricular systolic pressure is estimated at 49 mmHg. There is evidence of moderate pulmonary hypertension. Pulmonic Valve: There is no evidence of pulmonic valve thickening. There is mild to moderate pulmonic regurgitation. Pericardium: There is no significant pericardial effusion. Aorta: The aortic root appears normal. There is no dilatation of the aortic arch. Pulmonary Artery: The main pulmonary artery is not well visualized. Venous: The inferior vena cava is dilated. There is less than 50% respiratory change in the inferior vena cava dimension. Contrast: Definity was used to optimize study. A total of 2.5 ml was used Conclusions Mild concentric left ventricular hypertrophy is observed. There is severely decreased left ventricular systolic function.There appears to thinning of the mid to distal septal wall with dyskinetic wall motion. The estimated ejection fraction is 20-25%. The left ventricular diastolic filling pattern is restrictive. The left atrium is moderate to severely dilated. The right atrium is moderate to severely dilated. There is trace to mild aortic regurgitation. There is moderate to severe mitral regurgitation. There is moderate tricuspid regurgitation.In limited views , possibly moderate to severe. There is evidence of moderate pulmonary hypertension. There is mild to moderate pulmonic regurgitation. Compared to report of study from 10/14/2014 there has been a significant decrease in the LV systolic function (was 50-55%), the degree of mitral regurgitation has increased (was mild to moderate), the degree of tricuspid regurgitation has increased(was mild to moderate). Both left and right atria have increased in size (were mild to moderate and mildly dilated, respectively). There was no comment on prior study regarding the septal wall thinness or dyskinetic wall motion. The patient also appears to be in an irregular rhythm possibly atrial fibrillation. No comment regarding rhythm during prior study is noted, however the measurement of both E and A velocities of the mitral inflow suggests the patient probably was in normal sinus rhythm. Measurements Name Value Normal Range RVIDd (AP) 2D 3.1 cm (0.9 - 2.6) RVDdMajor (2D) 3.2 cm (2.2 - 4.4) RAd ISD 4CH 6.8 cm (3.4 - 4.9) RA (A4C)W 5.4 cm (2.9 - 4.6) IVSd (2D) 1.2 cm (0.6 - 1) LVPWd (2D) 1.2 cm (0.6 - 1) LVIDd (2D) 4.7 cm (3.6 - 5.4) LVIDs (2D) 4.6 cm - LV FS (2D) 1 % (25 - 45) Aortic Annulus 2 cm (1.4 - 2.6) Ao root diameter (2D) 2.7 cm (2.1 - 3.5) Ascending Ao 2.4 cm (2.1 - 3.4) Aortic arch 2.7 cm (1.8 - 3.4) LA dimension (AP) 2D 4.2 cm (2.3 - 3.8) LAd ISD 4CH 6.2 cm (2.9 - 5.3) LA ISD 4CH W 5.5 cm (2.5 - 4.5) Name Value Normal Range LA ESV SP 4CH (A/L) 109.62 ml - LA ESV SP 2CH (A/L) 75.87 ml - LA ESV BP (A/L) 92.39 ml - LA ESV BP (A/L) index 46 ml/m2 - LA ESV SP 4CH (MOD) 97.63 ml - LA ESV SP 2CH (MOD) 70.4 ml - Name Value Normal Range MV E-wave Vmax 1 m/sec - MV deceleration time 142.5 msec - LV lateral e' Vmax 0.08 m/sec - LV E:e' lateral ratio 12.5 ratio - Name Value Normal Range AV Vmax 0.9 m/sec - AV peak gradient 3.2 mmHg - LVOT diameter 2 cm - LVOT Vmax 0.5 m/sec - LVOT peak gradient 1 mmHg - JESSY (continuity Vmax) 1.7 cm2 - Name Value Normal Range MR Vmax 4.7 m/sec - MR VTI 159 cm - MR volume (PISA) 49 ml - MR flow (PISA) 134 ml/sec - MR ERO 31 cm2 - MR PISA radius 0.8 cm - MR alias Vmax 36 cm/sec - Name Value Normal Range TR Vmax 2.9 m/sec - TR peak gradient 34 mmHg - RAP 15 mmHg - RVSP 49 mmHg - IVC diameter 2.5 cm - Name Value Normal Range PV Vmax 0.5 m/sec - PV peak gradient 1 mmHg -
[2017-07-18] MEDS: Lactobacillus Acidophilu (GG)* 1 CAP CAP PO SCH (13:20)
[2017-07-18] MEDS: Amiodarone TAB* 400 MG PO SCH ×2 (15:28→20:52)
[2017-07-18] MEDS: Warfarin TAB(*) 5 MG PO SCH (16:42)
--- NOTE | 2017-07-18 17:29 | PN ---
Subjective Date of Service: 07/18/17 Interval History: Patient complains of stable fatigue and SOB with exertion. Was able to walk around the unit with nurse without hypoxia. Increased swelling in legs, patient denies CP. Patient denies F/C, N/V, Abdominal pain, dysuria, diarrhea, constipation or other pain. Family History: Unchanged from Admission Social History: Unchanged from Admission Past Medical History: Unchanged from Admission Objective Active Medications: Acetaminophen (Tylenol Tab*) 650 mg PO Q4H PRN PRN Reason: PAIN Last Admin: 07/18/17 00:48 Dose: 650 mg Albuterol (Ventolin 2.5 Mg/3 Ml Neb.Chaya*) 2.5 mg INH Q4H PRN PRN Reason: SOB/WHEEZING Amiodarone HCl (Cordarone Tab*) 400 mg PO BID [facility] Last Admin: 07/18/17 15:28 Dose: 400 mg Atorvastatin Calcium (Lipitor*) 20 mg PO DAILY [facility] Last Admin: 07/18/17 08:50 Dose: 20 mg Calcium Carbonate (Tums*) 500 mg PO Q4H PRN PRN Reason: INDIGESTION Cholecalciferol (Vitamin D Tab*) 1,000 units PO DAILY [facility] Last Admin: 07/18/17 08:50 Dose: 1,000 units Guaifenesin (Mucinex*) 1,200 mg PO BID [facility] Last Admin: 07/18/17 08:50 Dose: 1,200 mg Ceftriaxone Sodium 1,000 mg/ (Dextrose) 50 mls @ 200 mls/hr IVPB Q24H [facility] Last Admin: 07/18/17 08:49 Dose: 200 mls/hr Lactobacillus Rhamnosus (Culturelle*) 1 cap PO DAILY [facility] Last Admin: 07/18/17 13:20 Dose: 1 cap Magnesium Oxide (Magox 400 Tab*) 400 mg PO DAILY [facility] Last Admin: 07/18/17 08:50 Dose: 400 mg Metoprolol Tartrate (Lopressor Tab*) 50 mg PO BID [facility] Last Admin: 07/18/17 08:50 Dose: 50 mg Potassium Chloride (Klor Con Er Tab*) 10 meq PO BID [facility] Last Admin: 07/18/17 08:50 Dose: 10 meq Warfarin Sodium (Coumadin Tab(*)) 5 mg PO DAILY@1700 CAMRYN PRN Reason: Protocol Last Admin: 07/18/17 16:42 Dose: 5 mg Vital Signs - 8 hr 07/18/17 07/18/17 11:42 15:42 Temperature 98.0 F 97.8 F Pulse Rate 91 86 Respiratory 16 20 Rate Blood Pressure 132/85 137/82 (mmHg) O2 Sat by Pulse 95 99 Oximetry Oxygen Devices in Use Now: None Appearance: Patient is a 72yo female who appear stated age and is sitting in the bed in [facility]. Eyes: No Scleral Icterus, PERRLA Ears/Nose/Mouth/Throat: NL Teeth, Lips, Gums, Clear Oropharnyx, Mucous Membranes Moist, - - No Post nasal drip. Neck: NL Appearance and Movements; NL JVP, Trachea Midline Respiratory: Symmetrical Chest Expansion and Respiratory Effort, Clear to Auscultation Cardiovascular: NL Sounds; No Murmurs; No JVD, - - 2+ pitting edema in B/L LE. Significantly increased from previous exam. Irregularly irregular rhythm on exam /monitor. Abdominal: NL Sounds; No Tenderness; No Distention, No Hepatosplenomegaly Lymphatic: No Cervical Adenopathy Extremities: No Clubbing, Cyanosis Skin: No Rash or Ulcers, No Nodules or Sclerosis Neurological: Alert and Oriented x 3, NL Sensation, NL Gait, NL Muscle Strength and Tone, - - CN II-XII intact Result Diagrams: 07/18/17 05:09 07/18/17 05:09 Microbiology and Other Data: Microbiology Microbiology 07/14/17 07:27 Aerobic Blood Culture - Preliminary Blood Venous No Growth Day 3 Anaerobic Blood Culture - Preliminary No Growth Day 3 07/14/17 07:18 Aerobic Blood Culture - Preliminary Blood Venous No Growth Day 3 Anaerobic Blood Culture - Preliminary No Growth Day 3 07/14/17 15:00 Urine Culture - Final Urine No Growth (<1,000 CFU/mL) 07/15/17 19:20 Legionella Urinary Antigen - Final Urine Negative Legionella 07/14/17 15:00 Nasal Screen MRSA (PCR)(KAMALJIT) - Final Nasal Mrsa Negative 07/14/17 15:00 Streptococcus pneumoniae Ag Screen - Final Urine Negative S. pneumo Antigen Assess/Plan/Problems-Billing Assessment: Patient is a 72yo female with a PMH significant for Afib on coumadin, and SSS with pacemaker who presents with lobar pneumonia after URI in May who is improving on Ceftriaxone. - Patient Problems (1) Community acquired pneumonia Current Visit: Yes Status: Acute Code(s): J18.9 - PNEUMONIA, UNSPECIFIED ORGANISM SNOMED Code(s): 089634284 Comment: RUL pneumonia, treated briefly and unsuccessfully with Azithromycin, Keflex, Clindamycin, and Doxycycline. Keflex and Doxycycline made coumadin supratherapeutic. Azithromycin not used for concerns of interactions with Multaq. Clindamycin course completed with no effect. Improving on Ceftriaxone. Appreciate ID consult. States ok for no Atypical Bacteria coverage at this time due to improvement. Will track CRP during hospital stay. Currently declining. (2) Systolic CHF Current Visit: Yes Status: Acute Code(s): I50.20 - UNSPECIFIED SYSTOLIC ( CONGESTIVE) HEART FAILURE SNOMED Code(s): 938020073 Comment: Appreciate cardiology input. Patient had increased swelling in legs and general malaise. Echo ordered, showed EF of 20-25%, down from 50-55% in 2015. Switched to Amiodarone due to reduced EF. Likely at least partially due to tachycardia and afib, plan for cardioversion in AM. (3) Afib Current Visit: Yes Status: Acute Code(s): I48.91 - UNSPECIFIED ATRIAL FIBRILLATION SNOMED Code(s): 72560409 Comment: Appreciate Cardiology consult Patient is in Afib with RBBB. Patient is anticoagulated on coumadin with a most recent INR of 1.84. Wafarin at 5mg today Patient in Afib 24% of the time according to last outpatient pacemaker interrogation. Patient in Afib consistently through hospital stay with rates 80- 100 generally. Multaq stopped, started on Amiodarone, plan for cardioversion in AM with cardiology. (4) Coumadin toxicity Current Visit: Yes Status: Acute Code(s): T45.511A - POISONING BY ANTICOAGULANTS, ACCIDENTAL, INIT SNOMED Code(s): 12168291 Comment: INR at 4.30 at admission. Down to 1.84 and subtherapeutic. (5) Hyperlipidemia Current Visit: Yes Status: Acute Code(s): E78.5 - HYPERLIPIDEMIA, UNSPECIFIED SNOMED Code(s): 69613099 Comment: Continue Atorvastatin (6) Pacemaker Current Visit: Yes Status: Acute Code(s): Z95.0 - PRESENCE OF CARDIAC PACEMAKER SNOMED Code(s): 315730604 Comment: For SSS. Had run of 7 paced beats which was asymptomatic. Electrolytes normal. (7) QT prolongation Current Visit: Yes Status: Acute Code(s): R94.31 - ABNORMAL ELECTROCARDIOGRAM [ECG] [EKG] SNOMED Code(s): 789467544 Comment: QTc at 580 at admission, Decreased to 560 after repletion of Mg++ and K+. Will recheck and attempt to keep above 2.0 and 4.0 respectively. Will avoid QT prolonging drugs. On Amiodarone. (8) Delirium Current Visit: Yes Status: Acute Code(s): R41.0 - DISORIENTATION, UNSPECIFIED SNOMED Code(s): 8734070 Comment: Patient has had 2 episodes of being delirious and combative in the middle of the night when being woken up for services. Once associated with lorazepam and continues tonight, Will attempt to minimize interruptions to sleeping to maximize patient safety. (9) DVT prophylaxis Current Visit: Yes Status: Acute Code(s): MGE6080 - SNOMED Code(s): 705878197 Comment: Subtherapeutic on Warfarin, will bridge if does not increase. (10) Full code status Current Visit: Yes Status: Acute Code(s): Z78.9 - OTHER SPECIFIED HEALTH STATUS SNOMED Code(s): 844131677 Status and Disposition: Patient is admitted inpatient, will discharge when medically stable.
[2017-07-18] MEDS ORDERED: Furosemide IV* 10 MG/ML 2 ML VIAL (20 MG) IV ONE (18:00)
[2017-07-19 07:10] LABS: Hematocrit 40 % (35-47); Mean Corpuscular HGB Conc 33 g/dl (31-36); Mean Corpuscular Hemoglobin 30 pg (27-31); Mean Corpuscular Volume 91 fL (80-97); Mean Platelet Volume 9 um3 (7.4-10.4); Red Blood Count 4.34 10^6/ul (4.0-5.4); Red Cell Distribution Width 16 % (10.5-15); White Blood Count 7.7 10^3/ul (3.5-10.8)
[2017-07-19 07:32] LABS: Albumin 3.4 g/dL (3.2-5.2); BUN/Creatinine Ratio 13.3 (8-20); C Reactive Protein 11.43 mg/L (< 5.00); Calcium 9.2 mg/dL (8.6-10.3); EGFR African American 65.9 (>60); EGFR Non-African American 51.2 (>60); Globulin 3.2 g/dL (2-4); Magnesium 2.2 mg/dL (1.9-2.7); Potassium 3.9 mmol/L (3.5-5.0); Total Bilirubin 0.9 mg/dL (0.2-1.0); Total Protein 6.6 g/dL (6.4-8.9)
[2017-07-19] MEDS: cefTRIAXone VIAL(*) 1,000 MG in D5W 50 ML BAG* 50 ML IVPB SCH (08:07)
[2017-07-19] MEDS ORDERED: Naloxone* 0.4 MG/ML 1 ML VIAL ONE (09:38)
[2017-07-19] MEDS ORDERED: Lidocaine 2% VISCOUS* 15 ML UDC ONE (09:38)
[2017-07-19] MEDS ORDERED: Flumazenil* 0.1 MG/ML 5 ML MDV ONE (09:38)
[2017-07-19] MEDS ORDERED: fentaNYL* 50 MCG/ML 2 ML VIAL (100 MCG VIAL) ONE (09:38)
[2017-07-19] MEDS ORDERED: Midazolam* 1 MG/ML 10 ML VIAL (10 MG) ONE (09:39)
--- NOTE | 2017-07-19 11:41 | CARD ---
CC: Dr. Milian; Dr. Wilkinson; Miranda Blancas MD; Hospitalist Service DIRECT CURRENT CARDIOVERSION NOTE: DATE OF PROCEDURE: 07/19/17 PROCEDURE: Direct current cardioversion. HISTORY: The patient is a 72-year-old female patient with a known history of paroxysmal atrial fibrillation maintained on a long-term Coumadin treatment. She was hospitalized with pneumonia. She was found to be in rapid atrial fibrillation and symptomatic and also noticeable decrease in the left ventricular systolic function from 50% to 55% in the past to about 25% during her hospitalization. A transesophageal echocardiogram was further requested, direct current cardioversion. Her INR from today is 2.0. Please refer to our full separate report of transesophageal echocardiography that showed moderately at least reduced left ventricular systolic function with EF of 30% to 35%, moderate mitral insufficiency, probably +4 smoke in the left atrium. No evidence of clots or thrombus in the left atrium or in the left atrial appendage. Subsequently, direct current cardioversion was further proceeded. PROCEDURE IN DETAIL: After informed written consent had been obtained and with continuous blood pressure, pulse oximetry and heart rate monitoring, the patient received a total dose of Versed 8 mg intravenously during her transesophageal echo and 75 mcg of fentanyl intravenously. A synchronized 150 joules were delivered once and successfully converted the patient to normal sinus rhythm. There were no complications. The patient tolerated the procedure very well. The current heart rate is 85 beats per minute and blood pressure 120/70. Immediate EKG was obtained and confirmed the patient to be in normal sinus rhythm. CONCLUSION: Successful direct current cardioversion for atrial fibrillation. There were no complications. [id number]/[facility] #: [id number] [facility] CENTERKarl
[2017-07-19] MEDS: Potassium Chlor TAB* 10 MEQ TAB.ER PO SCH (11:55)
[2017-07-19] MEDS: Metoprolol Tartrate TAB* 25 MG PO SCH (11:55)
[2017-07-19] MEDS: Cholecalciferol TAB* 1000 UNITS PO SCH (11:56)
[2017-07-19] MEDS: Magnesium Oxide TAB* 400 MG PO SCH (11:56)
[2017-07-19] MEDS: guaiFENesin ER TAB 600 MG PO SCH (11:56)
[2017-07-19] MEDS: Atorvastatin* 20 MG TAB PO SCH (11:56)
[2017-07-19] MEDS: Lactobacillus Acidophilu (GG)* 1 CAP CAP PO SCH (11:56)
[2017-07-19] MEDS: Amiodarone TAB* 400 MG PO SCH (11:56)
[2017-07-19] MEDS ORDERED: Furosemide IV* 10 MG/ML 2 ML VIAL (20 MG) IV SCH (12:00)
[2017-07-19 12:15] VITALS: BP 126/70
--- NOTE | 2017-07-19 12:55 | TEE ---
Patient: RADHA NUNEZ [facility] Rec#: [id number] : 1945 Date: 07/19/2017 Age: 72y Height: 167.6 cm / 66.0 in Weight: 88.5 kg / 195.1 lbs Sex: F BSA: 2 Room#: [facility] Admit Date#: 07/14/2017 Type: Inpatient Referring: Miranda Blancas MD Performing: Miranda Blancas MD Reading: Miranda Blancas MD Cast Iron Dipper: Yulia Vela RN RDCS Nurse: Lisa Godinez RN Nurse: Fermin Rene RN CC: Harley Milian MD CC: Manoj Velasquez DO Transesophageal Echocardiogram Indication: Atrial fibrillation BP: 128/78 HR: 105 Rhythm: A-Fib Findings History: SSS, pacemaker, A. fib, HLD Technical Comments: The study quality is good. Completed at 1100. Left Ventricle: The left ventricular chamber size is normal. There is global hypokinesis of the left ventricle with minor regional variation. There is moderate to severely decreased left ventricular systolic function. The estimated ejection fraction is 30-35%. The assessment of diastolic function is non-diagnostic. Left Atrium: The left atrium is moderately dilated. No thrombus is visualized within the left atrium. There is no thrombus visualized in the left atrial appendage. Right Ventricle: The right ventricular cavity size is normal. The right ventricular global systolic function is mildly to moderately reduced. A pacemaker wire is visualized in the right ventricle. Right Atrium: The right atrium is moderately dilated. A pacemaker wire is visualized in the right atrium. A patent foramen ovale is demonstrated by agitated contrast. Aortic Valve: The aortic valve is trileaflet. The aortic valve leaflets are mildly thickened. There is a trace of aortic regurgitation. There is no evidence of aortic stenosis. Mitral Valve: The mitral valve leaflets are mildly thickened. There is moderate mitral regurgitation. There is no evidence of mitral stenosis. Tricuspid Valve: The tricuspid valve leaflets are normal. There is moderate tricuspid regurgitation. The Doppler angle was difficult in some views, so the degree of TR could be underestimated. There is no tricuspid stenosis. Pulmonic Valve: The pulmonic valve structure is not well visualized. Pericardium: There is no significant pericardial effusion. Aorta: There is no dilatation of the ascending aorta. The aortic root is normal in size. There is moderate atherosclerotic plaque seen in the descending thoracic aorta. Pulmonary Artery: The main pulmonary artery appears normal. Venous: The inferior vena cava appears normal. The pulmonary veins appear normal. 2 of 4 veins are visualized and interrogated with Doppler. The superior vena cava appears normal. RHYS Procedures: All standard views were attempted within the limitations of patient tolerance and safety. History and physical as well as labs were reviewed. The patient was in a fasting state. Risks and benefits of the procedure, including alternatives, were discussed and written informed consent was obtained. The patient and/or their health care traffic workforce representative expressed understanding of the procedure, risks and benefits. Baseline and continuous monitoring of blood pressure, heart rate, pulse oximetry and heart rhythm was performed throughout the procedure. The appropriate time-out procedure was performed as per [facility] protocol. The patient was placed in the left lateral decubitus position. The patient's posterior pharynx was anesthetized with 20ml of 2% viscous lidocaine. The patient received IV Midazolam with a total dose of 8 mg. The patient received IV Fentanyl with a total dose of 75 mcg. An oral bite block was inserted for protection of oral dentition. The multiplane transesophageal echocardiogram probe was inserted through the posterior oropharynx and advanced into the esophagus without difficulty. Multiple 2D images were obtained of the heart and its related structures. Color flow Doppler was used for evaluation. Spectral Doppler was also used. The atrial septum was interrogated with color flow Doppler. At the conclusion of the procedure the probe was removed with continuous suction without complications. The patient tolerated the procedure with no apparent complications. Contrast: Normal saline was used as contrast for the bubble study. Image 52. Conclusions The left ventricular chamber size is normal. The estimated ejection fraction is 30-35%. The assessment of diastolic function is non-diagnostic. No thrombus is visualized within the left atrium. There is no thrombus visualized in the left atrial appendage. The left atrium is moderately dilated. A pacemaker wire is visualized in the right ventricle. A pacemaker wire is visualized in the right atrium. There is a trace of aortic regurgitation. There is moderate mitral regurgitation. There is moderate tricuspid regurgitation. The Doppler angle was difficult in some views, so the degree of TR could be underestimated. The aortic root is normal in size. There is moderate atherosclerotic plaque seen in the descending thoracic aorta. Measurements Name Value Normal Range Aortic Annulus 1.7 cm (1.4 - 2.6) Ao root diameter (2D) 2.8 cm (2.1 - 3.5) Ascending Ao 3.1 cm (2.1 - 3.4) Name Value Normal Range MV E-wave Vmax 0.94 m/sec - MV deceleration time 101 msec -
--- NOTE | 2017-07-19 17:30 | ED ---
Seng Zavala Thomas, scribed for Elda Martinez MD on 07/14/17 at 0629 . Respiratory - HPI Summary HPI Summary: The patient is a 72 y/o F presenting to the ED with chest pain and a productive cough. The pain radiates to her back. She has nausea secondary to bringing up mucus. She was given ASA 324 prior to arrival. She had a CXR a few days ago that shows pneumonia. She is on warfarin for A-Fib. She denies MANZANO, fever, chills , double vision, and blurry vision. - History of Current Complaint Chief Complaint: EDChestPainROMI Stated Complaint: CHEST PAIN Time Seen by Provider: 07/14/17 05:09 Hx Obtained From: Patient Onset/Duration: Still Present Timing: Constant Current Severity: Mild Pain Intensity: 1 Character: Cough (Productive) Aggravating Factor(s): Nothing Alleviating Factor(s): Nothing Associated Signs and Symptoms: Chest Pain, Chest Pain Unrelated to Cough - Allergy/Home Medications Allergies/Adverse Reactions: Allergies Allergy/AdvReac Type Severity Reaction Status Date / Time Penicillins Allergy Unknown Unknown Verified 06/17/17 20:08 Reaction Details Azithromycin Allergy directed Verified 07/14/17 05:[address] Milian Lorazepam Allergy Agitation Verified 07/16/17 04:32 Cephalexin AdvReac Increase Verified 07/15/17 14:52 INR Doxycycline AdvReac Increase Verified 07/15/17 14:52 in INR PMH/Surg Hx/FS Hx/Imm Hx Previously Healthy: No Cardiovascular History: Reports: Hx Hypertension, Hx Pacemaker/ICD - 2014 Respiratory History: Denies: Hx Asthma, Other Respiratory Problems/Disorders Sensory History: Reports: Hx Contacts or Glasses Opthamlomology History: Reports: Hx Contacts or Glasses Infectious Disease History: No Infectious Disease History: Denies: Traveled Outside the [place] in Last 30 Days - Family History Known Family History: Negative: Hypertension, Diabetes - Social History Alcohol Use: None Substance Use Type: Reports: None Smoking Status (MU): Never Smoked Tobacco Review of Systems Negative: Fever, Chills Negative: Blurred Vision, Diplopia Negative: Sore Throat Positive: Chest Pain Positive: Cough Positive: Nausea. Negative: Abdominal Pain, Vomiting Negative: dysuria, hematuria Negative: Myalgia Negative: Rash, Bruising Negative: Headache Negative: Anxious, Depressed All Other Systems Reviewed And Are Negative: Yes Physical Exam - Summary Physical Exam Summary: Appearance: Alert, conversive, nontoxic appearing Skin: Warm, dry, no mottling, no rashes, no contusions HEENT: EOMI, PERRL, moist mucous membranes Neck: No masses on the neck, supple Respiratory: Clear to auscultation, breath sounds present, no rales, no rhonchi , no wheezes Cardiovascular: RRR, pulses are symmetrical in both lower and upper extremities Abdomen: Soft, non-tender Bowel Sounds: Present Musculoskeletal: No CVA tenderness, no obvious deformity, moving all extremities in a grossly normal manner Neurological: A&Ox3, CN II-XII Intact, moving all extremities symmetrically Psychiatric: Normal affect and mood Triage Information Reviewed: Yes Vital Signs On Initial Exam: Initial Vitals Temp Pulse Resp BP Pulse Ox 98.4 F 96 20 135/92 94 07/14/17 05:01 07/14/17 05:01 07/14/17 05:01 07/14/17 05:01 07/14/17 05:01 Vital Signs Reviewed: Yes - Genia Coma Scale Coma Scale Total: 15 Diagnostics - Vital Signs Vital Signs Temp Pulse Resp BP Pulse Ox 07/14/17 06:00 91 20 139/75 97 07/14/17 05:30 95 22 127/93 95 07/14/17 05:06 100 23 93 07/14/17 05:04 135/92 07/14/17 05:01 98.4 F 96 20 135/92 94 - Laboratory Lab Results: Lab Results 07/14/17 07/14/17 Range/Units 05:44 05:44 WBC 7.7 (3.5-10.8) 10^3/ul RBC 3.85 L (4.0-5.4) 10^6/ul Hgb 11.7 L (12.0-16.0) g/dl Hct 35 (35-47) % MCV 90 (80-97) fL MCH 31 (27-31) pg MCHC 34 (31-36) g/dl RDW 16 H (10.5-15) % Plt Count 235 (150-450) 10^3/ul MPV 8 (7.4-10.4) um3 Neut % (Auto) 84.0 H (38-83) % Lymph % (Auto) 7.2 L (25-47) % Haines % (Auto) 7.3 (1-9) % Eos % (Auto) 0.8 (0-6) % Baso % (Auto) 0.7 (0-2) % Absolute Neuts (auto) 6.5 (1.5-7.7) 10^3/ul Absolute Lymphs (auto) 0.6 L (1.0-4.8) 10^3/ul Absolute Monos (auto) 0.6 (0-0.8) 10^3/ul Absolute Eos (auto) 0.1 (0-0.6) 10^3/ul Absolute Basos (auto) 0.1 (0-0.2) 10^3/ul Absolute Nucleated RBC 0 10^3/ul Nucleated RBC % 0 Sodium 137 (133-145) mmol/L Potassium 2.9 L (3.5-5.0) mmol/L Chloride 100 L (101-111) mmol/L Carbon Dioxide 28 (22-32) mmol/L Anion Gap 9 (2-11) mmol/L BUN 12 (6-24) mg/dL Creatinine 1.00 H (0.51-0.95) mg/dL Est GFR ( Amer) 69.7 (>60) Est GFR (Non-Af Amer) 54.2 (>60) BUN/Creatinine Ratio 12.0 (8-20) Glucose 111 H (70-100) mg/dL Calcium 8.7 (8.6-10.3) mg/dL Magnesium 1.9 (1.9-2.7) mg/dL Total Bilirubin 1.00 (0.2-1.0) mg/dL AST 19 (13-39) U/L ALT 16 (7-52) U/L Alkaline Phosphatase 53 (34-104) U/L Troponin I 0.01 (<0.04) ng/mL Total Protein 6.0 L (6.4-8.9) g/dL Albumin 3.1 L (3.2-5.2) g/dL Globulin 2.9 (2-4) g/dL Albumin/Globulin Ratio 1.1 (1-3) TSH Pending Result Diagrams: 07/19/17 06:25 07/19/17 06:25 Lab Statement: Any lab studies that have been ordered have been reviewed, and results considered in the medical decision making process. - Radiology CXR Xray Interpretation: Positive (See Comments) - Right upper lobe pneumonia Radiology Interpretation Completed By: ED Physician - EKG 05:24 Cardiac Rate: Tachycardia EKG Rhythm: Atrial Fibrillation EKG Interpretation: No STEMI. Disposition - Diagnoses Provider Diagnoses: Pneumonia - Physician Notifications Discussed Care Of Patient With: Yung Shaw Time Discussed With Above Provider: 07:09 Instructed by Provider To: Admit As Inpatient Discharge - Discharge Plan Condition: Stable Disposition: ADMITTED TO [facility] The documentation as recorded by the Seng mendoza Thomas accurately reflects the service I personally performed and the decisions made by Michelle arboleda Norma, MD.
--- NOTE | 2017-07-20 04:34 | DS ---
CC: Dr. Manoj Velasquez; Dr. Milian * DISCHARGE SUMMARY: DATE OF ADMISSION: 07/14/17 DATE OF DISCHARGE: 07/19/17 PRIMARY CARE PROVIDER: Dr. Manoj Velasquez. CONSULTING CAREER DEVELOPMENT ASSOCIATE: Dr. Blancas. CONSULTING INFECTIOUS DISEASE SPECIALIST: Dr. Thornton. PRIMARY CAREER DEVELOPMENT ASSOCIATE: Dr. Harley Milian. DISCHARGING PROVIDER: SARY Galeano. SUPERVISING PHYSICIAN: Britney Bell MD * (DICTATED BY SARY GALEANO) PRIMARY DISCHARGE DIAGNOSES: 1. Community acquired pneumonia - failed outpatient oral antibiotics. 2. Acute heart failure with an EF of 20% to 25%. 3. Atrial fibrillation with occasional rapid rate, status post cardioversion, discharge in sinus rhythm, supratherapeutic INR at 4.3 at the time of admission , discharged at 2.0. 4. QT prolongation - improved with repletion of magnesium and potassium and discontinuation of Multaq. 5. Delirium - resolved. SECONDARY DISCHARGE DIAGNOSES: 1. Hyperlipidemia. 2. Pacemaker in [address] with history of sick sinus syndrome. DISCHARGE MEDICATIONS: 1. Amiodarone 400 mg p.o. twice daily x3 days, then 200 mg twice daily. 2. Atorvastatin 20 mg p.o. daily. 3. Cefuroxime 250 mg p.o. twice daily x5 days. 4. Vitamin D3 1000 units p.o. daily. 5. Lasix 20 mg p.o. daily. 6. Magnesium oxide 400 mg p.o. daily. 7. Metoprolol tartrate 50 mg p.o. twice daily. 8. Potassium chloride 10 mEq p.o. twice daily. 9. Coumadin 5 mg p.o. daily. Medication changes: 1. Stop Multaq. 2. Start amiodarone. 3. Cefuroxime x5 days. 4. Start Lasix. 5. Start magnesium oxide. HOSPITAL IMAGIN. Chest x-ray demonstrates a dense infiltrate in the right upper lobe. 2. Transthoracic echocardiogram shows an EF initially estimated at 20% to 25% on transthoracic approach, transesophageal approach estimates EF at 30% to 35%. Moderate mitral regurg and moderate tricuspid regurg. HOSPITAL COURSE: This is a 72-year-old female with history of AFib and sick sinus syndrome with pacemaker in place. The patient has been chronically anticoagulated on Coumadin. She presented to the emergency department with complaints of shortness of breath and cough. She had been treated as an outpatient for pneumonia and was prescribed azithromycin, cephalexin, and doxycycline with PENICILLIN allergy noted, no improvement in her symptoms. Her symptoms instead continued to degrade, she had no associated fever. Chest x- ray demonstrated a dense right upper lobe consolidation and initial labs, however, did not show a significant leukocytosis and she was not febrile at the time of admission. INR, however, was supratherapeutic at 4.3. Chemistry was unremarkable. Urinalysis showed trace leuk esterase, otherwise normal. The patient was treated for community acquired pneumonia with ceftriaxone with some improvement in her symptoms. The patient also complained of significant lower extremity edema and transthoracic echocardiogram was obtained, which demonstrated severely depressed left ventricle, which was new when compared to prior study from 2015. The patient has longstanding chronic atrial fibrillation occasionally with some mild tachycardia. Cardioversion was performed by Dr. Blancas in hopes that her ejection fraction may improve if she is maintained in a sinus rhythm. No evidence of acute coronary syndrome. The patient was previously treated with Multaq, which was discontinued after her low EF was discovered and replaced with amiodarone. The patient's QTc was prolonged after repletion of magnesium and potassium. This improved in addition to discontinuation of her Multaq. Azithromycin was avoided due to the QT prolongation. Cardioversion was successful and the patient was in sinus rhythm at the time of discharge. Recommendation from Infectious Disease included discharge with cefuroxime for treatment of her pneumonia and a repeat chest x-ray in 2 to 3 weeks to ensure improvement to resolution due to the density of her infiltrates. DISPOSITION AND FOLLOWUP PLAN: The patient is being discharged to home with medication changes as outlined above. She should follow up with her primary care provider regarding this hospitalization and requires a repeat chest x-ray in approximately 2 weeks to ensure resolution of infiltrates and otherwise would recommended a CT scan of her chest if no improvement at that time and possible bronchoscopy. The patient will follow up with Dr. Milian and has a pending appointment with him for 08/02/17. SARY GALEANO [id number]/[facility] #: [id number] SHABNAM
--- NOTE | 2017-07-20 11:13 | PN ---
Hospitalist Progress Note Date of Service: 07/20/17 Patient called to ask whether is was ok to continue APAP, benadryl and albuterol on a prn basis. She is also complaining of vaginal pain and irritation. No significant discharge. Recommended that she start a probiotic and sent Rx for diflucan for suspected vaginal candidiasis to [facility] at her request.
--- NOTE | 2017-07-21 15:59 | PN ---
Hospitalist Progress Note Date of Service: 07/21/17 Patient called back again today to report increased edema in her feet. No significant weight gain. No worsening dyspnea. She has been complaint with Lasix and a low salt diet. Advised her to please take an additional dose of Lasix now and continue to monitor daily weights. If still edematous tomorrow, can take an additional Lasix at that time too. She plans to see her PCP Saturday this week.
== END 2017-07-19 14:31 | disposition home or self-care (01) | DRG 193 ==
LOC: ED 04:58 → MEDTELE 07:04
PROVIDERS: ADMIT Internal Medicine; ATTEND Internal Medicine
PROC: 5A2204Z Restoration of Cardiac Rhythm, Single (ICD-10-PCS; principal; 2017-07-19 09:30)
DX: J18.8 Other pneumonia, unspecified organism (principal); I50.21 Acute systolic (congestive) heart failure; J96.01 Acute respiratory failure with hypoxia; I48.0 Paroxysmal atrial fibrillation; I49.5 Sick sinus syndrome; T45.515A Adverse effect of anticoagulants, initial encounter; E78.5 Hyperlipidemia, unspecified; Z95.0 Presence of cardiac pacemaker; Z79.01 Long term (current) use of anticoagulants; Z79.899 Other long term (current) drug therapy; Z88.1 Allergy status to other antibiotic agents; Z88.0 Allergy status to penicillin; Z80.3 Family history of malignant neoplasm of breast; Z82.49 Family history of ischemic heart disease and other diseases of the circulatory system; Y92.009 Unspecified place in unspecified non-institutional (private) residence as the place of occurrence of the external cause; X58.XXXA Exposure to other specified factors, initial encounter; R41.0 Disorientation, unspecified
CPT/HCPCS: 36415; 71010; 80048; 80053; 81003; 81015; 83605; 83735; 83880; 84145; 84443; 84484; 85025; 85610; 85730; 86140; 87040; 87086; 87641; 87899; 92960; 93005; 93306; 93312; 93325; A9270-GY; C8929; J0696; J1940; J2060; J2250; J2310; J3010; J3370; J3475

== ENCOUNTER 2017-11-01 07:11 | Inpatient (IN) | payer MEDICARE ==
[2017-11-01] MEDS ORDERED: NS 0.9% 1000 ML* 1,000 ML IV ONE (07:45)
[2017-11-01] MEDS ORDERED: NS 0.9% 500 ML* 500 ML IV ONE (08:19)
--- NOTE | 2017-11-01 08:20 | ED ---
Scott Zavala Julia, scribed for Monika Cartwright MD on 11/01/17 at 0816 . Abdominal Pain/Female - HPI Summary HPI Summary: This patient is a 72 year old F presenting to [facility] with a chief complaint of intermittent diffuse abdominal cramping with nausea since yesterday. Pt reports episode of diarrhea yesterday morning- no blood, no black. Pt states this morning had emesis x 1. Patient reports chills and a low grade fever of 99F, measured last night. No analgesia taken. No sick contacts. The patient rates the pain 8/10 in severity at worse - currently 6/10. . Patient has a history of diverticulosis, diagnosed by Dr. Reyes. No colonoscopy. Patient has no previous abdominal surgeries. Pt is on amiodarone and coumadin. Pt take Lasix - but "not as prescribed because I don't bloat" Medications and allergies reviewed. - History of Current Complaint Chief Complaint: EDAbdPain Stated Complaint: ABD PAIN Time Seen by Provider: 11/01/17 07:53 Hx Obtained From: Patient Onset/Duration: Gradual Onset, Lasting Hours Timing: Intermittent Episode Lasting Severity Initially: Mild Severity Currently: Moderate Pain Intensity: 8 Pain Scale Used: 0-10 Numeric Location: Diffuse, Discrete At: RLQ, Discrete At: LLQ Radiates: No Character: Cramping Aggravating Factor(s): Food, Movement Alleviating Factor(s): Position, Spontaneous Resolution Associated Signs and Symptoms: Positive: Fever, Nausea, Vomiting, Diarrhea - "loose stool". Negative: Blood in Stool Allergies/Adverse Reactions: Allergies Allergy/AdvReac Type Severity Reaction Status Date / Time azithromycin Allergy See Comment Verified 11/01/17 07:16 cephalexin Allergy See Comment Verified 11/01/17 07:16 doxycycline Allergy See Comment Verified 11/01/17 07:16 lorazepam Allergy Agitation Verified 11/01/17 07:16 Penicillins Allergy See Comment Verified 11/01/17 07:16 Home Medications: Home Medications Amiodarone TAB* [Cordarone TAB*] 200 mg PO BID 11/01/17 [History Confirmed 11/01] Furosemide TAB* [Lasix TAB*] 20 mg PO DAILY PRN 11/01/17 [History Confirmed ] Metoprolol Tartrate TAB* [Lopressor TAB*] 50 mg PO BID 11/01/17 [History Confirmed 11/01/17] Potassium Chlor TAB* [Klor Con ER TAB*] 10 meq PO BID 11/01/17 [History Confirmed 11/01/17] Warfarin TAB(*) [Coumadin TAB(*)] 3 mg PO DAILY 11/01/17 [History Confirmed ] PMH/Surg Hx/FS Hx/Imm Hx Endocrine/Hematology History: Reports: Hx Anticoagulant Therapy Cardiovascular History: Reports: Hx Hypertension, Hx Pacemaker/ICD - 2014 Respiratory History: Denies: Hx Asthma, Other Respiratory Problems/Disorders GI History: Reports: Hx Diverticulosis Musculoskeletal History: Reports: Hx Arthritis Sensory History: Reports: Hx Contacts or Glasses Denies: Hx Hearing Aid Opthamlomology History: Reports: Hx Contacts or Glasses - Surgical History Surgery Procedure, Year, and Place: catarract 05/28. pacemaker Infectious Disease History: No Infectious Disease History: Denies: Traveled Outside the [place] in Last 30 Days - Family History Known Family History: Positive: Cardiac Disease, Diabetes Negative: Hypertension - Social History Occupation: Retired Lives: Alone Alcohol Use: None Substance Use Type: Reports: None Smoking Status (MU): Never Smoked Tobacco Review of Systems Positive: Fever, Chills Positive: Abdominal Pain, Vomiting, Diarrhea, Nausea All Other Systems Reviewed And Are Negative: Yes Physical Exam Triage Information Reviewed: Yes Vital Signs On Initial Exam: Initial Vitals Temp Pulse Resp BP Pulse Ox 99.6 F 65 14 132/71 100 11/01/17 07:16 11/01/17 07:16 11/01/17 07:16 11/01/17 07:16 11/01/17 07:16 Vital Signs Reviewed: Yes Appearance: Positive: Well-Appearing, Pain Distress - mild discomfort Skin: Positive: Warm, Skin Color Reflects Adequate Perfusion, Dry Head/Face: Positive: Normal Head/Face Inspection Eyes: Positive: Normal, EOMI ENT: Positive: Hearing grossly normal, Nasal congestion Neck: Positive: Supple, Nontender, No Lymphadenopathy Respiratory/Lung Sounds: Positive: Clear to Auscultation, Breath Sounds Present , Decreased Breath Sounds Cardiovascular: Positive: Normal, RRR Abdomen Description: Positive: No Organomegaly, Soft, Other: - + TTP RLQ>LLQ no guarding, no rebound soft +BS. Negative: Nontender Bowel Sounds: Positive: Hypoactive Musculoskeletal: Positive: Normal Neurological: Positive: Normal, Sensory/Motor Intact, Alert, Oriented to Person Place, Time Psychiatric: Positive: Normal AVPU Assessment: Alert - [place]ell Coma Scale Best Eye Response: 4 - Spontaneous Best Motor Response: 6 - Obeys Commands Best Verbal Response: 5 - Oriented Coma Scale Total: 15 Diagnostics - Vital Signs Vital Signs Temp Pulse Resp BP Pulse Ox 11/01/17 07:36 65 97 11/01/17 07:16 99.6 F 65 14 132/71 100 - Laboratory Result Diagrams: 11/01/17 08:10 11/01/17 11:09 Lab Statement: Any lab studies that have been ordered have been reviewed, and results considered in the medical decision making process. - CT A/P CT Interpretation Completed By: Radiologist - 1. Perforated sigmoid colon. Given presence of severe colonic diverticulosis acute diverticulitis with perforation and early perienteric abscess is favored however follow-up is needed to exclude a colon carcinoma. 2. Thin-walled complex gas and fluid collection along the RIGHT margin of the mid sigmoid colon measuring up to 4.2 x 2.1 x 3.1 cm most consistent with early abscess. Foci of gas along the RIGHT fallopian tube concerning for potential fistulization from the pathologic process at the sigmoid colon to the fallopian tube. 3. Free intraperitoneal air. 4. Suggestion of mild pulmonary edema at the visualized inferior thorax. Correlate with clinical assessment. 5. Noted 1.4 cm hypodense lesion at the LEFT lateral hepatic segment is most consistent with a cyst. Consider nonemergent ultrasound for confirmation when clinically feasible. Results discussed with Dr. Cartwright 11/01/2017 11:14 AM EDT ED Physician has reviewed this report. Re-Evaluation - Re-Evaluation 1 Re-Evaluation Time: 09:34 Comment: Patient is drinking contrast. Pt requests pain meds. Pt with emesis Second Eval Re-Evaluation Time: 11:30 Comment: reviewed with pt labs, CT. aware calling surgery, plan for admission. aware of abx. pt unsure of allergy reactions Abdominal Pain Fem Course/Dx - Course Course Of Treatment: Pt with progressive cramping and lower abdominal pain x 24 hours. + episode of emesis this morning. no analgesia. pt reports temp 99.8. Pt with tenderness to palpation RLQ> LLQ. Differential includes appendicitis , diverticulitis, UTI. Pt declined analgesia and anti-emetic at the time. will check labs, CT. Pt comfortable and in agreement with plan - Diagnoses Provider Diagnoses: Perforated diverticulum, Abscess of abdominal cavity Discharge - Sign-Out/Discharge Documenting (check all that apply): Discharge - Discharge Plan Condition: Fair Disposition: ADMITTED TO [facility] Referrals: Manoj Velasquez DO [Primary Care Provider] - - Billing Disposition and Condition Condition: FAIR Disposition: [facility] [place] Consult Consult: At 11:14, Dr Charles, radiologist, recommends speaking to a surgeon after discussing CT results. At 11:26 Dr. Ryamond, surgeon, requests hospitalist admit, and recommends referring to hospitalist for abx use. At 11:35, Dr. Merlos, hospitalist, states she will talk with surgery regarding who will admit and will call back. After discussion of abx, will give meropenem. Dr. Merlos will call back once admitting provider decided At 12:02, Dr Raymond agrees to admit. Will consult hospitalist for medical management of other conditions. The documentation as recorded by the Scott mendoza Julia accurately reflects the service I personally performed and the decisions made by , Monika Cartwright MD.
[2017-11-01 08:22] LABS: ABS Basophils 0 10^3/ul (0-0.2); ABS Eosinophils 0 10^3/ul (0-0.6); ABS Lymphocytes 0.4 10^3/ul (1.0-4.8); ABS Monocytes 0.5 10^3/ul (0-0.8); ABS Neutrophils 11.3 10^3/ul (1.5-7.7); ABS Nucleated RBC 0 10^3/ul; Eosinophil % 0.1 % (0-6); Hematocrit 39 % (35-47); Mean Corpuscular HGB Conc 33 g/dl (31-36); Mean Corpuscular Hemoglobin 29 pg (27-31); Mean Corpuscular Volume 88 fL (80-97); Mean Platelet Volume 8.9 um3 (7.4-10.4); Nucleated Red Blood Cells % 0; Platelet Count 151 10^3/ul (150-450); Red Blood Count 4.44 10^6/ul (4.0-5.4); Red Cell Distribution Width 16 % (10.5-15); White Blood Count 12.2 10^3/ul (3.5-10.8)
[2017-11-01 08:31] LABS: INR 2.43 (0.77-1.02)
[2017-11-01 08:43] LABS: EGFR Non-African American 58.2 (>60)
[2017-11-01] MEDS ORDERED: Iodixanol* (CONTRAST) 320 MG/ML 100 ML SDV IV ONE (09:00)
[2017-11-01] MEDS ORDERED: Morphine INJ* 2 MG/ML 1 ML CARPUJECT IV ONE (09:35)
[2017-11-01] MEDS ORDERED: Ondansetron INJ* 2 MG/ML VIAL IV ONE (10:25)
--- NOTE | 2017-11-01 11:18 | RAD ---
INDICATION: RIGHT greater than LEFT lower quadrant pain. Nausea. History of diverticulosis. COMPARISON: December 22, 2014 pelvic ultrasound. TECHNIQUE: Multidetector CT images were obtained from the lung bases to the ischial tuberosities with 99 mL Visipaque 320 IV and oral contrast. Multiplanar reformation. REPORT: Visualized inferior thorax is remarkable for cardiomegaly, RIGHT atrial and RIGHT ventricular level pacemaker leads, and mild interstitial edema and basilar atelectasis. Solitary 1.4 x 1.3 cm well-circumscribed hypodense lesion at the LEFT lateral hepatic segment is most consistent with a benign cyst. Negative for biliary dilatation. No CT abnormality of the gallbladder or pancreas. Normal size spleen with multiple small calcified granulomas. Small hiatal hernia without additional abnormality of the upper GI. No suspicious finding of the small bowel loops. Unremarkable posterior extending appendix. Enteric contrast extends to the sigmoid rectal junction. Perforation of the mid sigmoid colon along the RIGHT lateral margin with thin walled complex gas and fluid collection measuring up to 4.2 x 2.1 x 3.1 cm. Severe colonic diverticulosis most marked at the distal descending colon and sigmoid colon. No specific inflamed diverticulum visualized. Moderate rectal distention with stool. Minimal ascites. Multiple foci of free intraperitoneal air extending as far cephalad as the subdiaphragmatic spaces. Normal adrenal glands. Unremarkable kidneys with symmetric nephrograms and pyelograms. Unremarkable nondilated ureters and partially distended urinary bladder. Unremarkable anteverted uterus and LEFT adnexal region. Foci of gas along the RIGHT fallopian tube concerning for potential fistulization from the pathologic process at the sigmoid colon. Negative for lymphadenopathy. Atherosclerotic plaque of normal diameter abdominal aorta and iliac arteries. Physiologic distention of the IVC. Polyarticular degenerative arthropathy. Negative for suspicious focal osseous lesions. IMPRESSION: 1. Perforated sigmoid colon. Given presence of severe colonic diverticulosis acute diverticulitis with perforation and early perienteric abscess is favored however follow-up is needed to exclude a colon carcinoma. 2. Thin-walled complex gas and fluid collection along the RIGHT margin of the mid sigmoid colon measuring up to 4.2 x 2.1 x 3.1 cm most consistent with early abscess. Foci of gas along the RIGHT fallopian tube concerning for potential fistulization from the pathologic process at the sigmoid colon to the fallopian tube. 3. Free intraperitoneal air. 4. Suggestion of mild pulmonary edema at the visualized inferior thorax. Correlate with clinical assessment. 5. Noted 1.4 cm hypodense lesion at the LEFT lateral hepatic segment is most consistent with a cyst. Consider nonemergent ultrasound for confirmation when clinically feasible. Results discussed with Dr. Cartwright 11/01/2017 11:14 AM EDT
[2017-11-01] MEDS ORDERED: Meropenem 1 GM PREMIX(*) 1 GM/50 ML BAG IV ONE (11:34)
[2017-11-01] MEDS ORDERED: Magnesium Sulfate 2 GM IV* 2 GM/50 ML BAG IVPB ONE (12:24)
[2017-11-01] MEDS ORDERED: NS 0.9% 1000 ML* 1,000 ML IV SCH (12:30)
[2017-11-01] MEDS ORDERED: KCL 10 MEQ/50 ML IVPREMIX* 10 MEQ/50 ML BAG IV SCH (13:00)
--- NOTE | 2017-11-01 13:07 | RAD ---
INDICATION: Atrial fibrillation. COMPARISON: Comparison is made with a prior chest x-ray study from July 30, 2017. Correlation is also made a study from July 14, 2017. TECHNIQUE: A portable view of the chest was obtained. FINDINGS: The heart is moderately enlarged and unchanged. There is a dual-chamber transvenous pacemaker present. There is diffuse prominence of the interstitial markings which have increased from the prior study. No pleural effusion is seen. IMPRESSION: FINDINGS SUGGESTIVE OF CONGESTIVE HEART FAILURE. RECOMMEND FOLLOW-UP.
[2017-11-01] MEDS: NS 0.9% 1000 ML* 1,000 ML IV SCH (13:51)
[2017-11-01] MEDS: Morphine INJ* 4 MG/ML 1 ML SYRINGE (NEW SYRINGE VERSION) IV PRN ×2 (13:57→20:17)
[2017-11-01] MEDS ORDERED: Potassium Chloride IV* 30 MEQ in NS 0.9% 250 ML* 250 ML IVPB ONE (14:00)
--- NOTE | 2017-11-01 15:27 | HP ---
AMENDED REPORT NOW INCLUDES COSIGNER DESIGNATION - ESIGNED BEFORE ADJUSTMENTS CC: Dr. Merlos; Dr. Velasquez * HISTORY AND PHYSICAL: DATE OF ADMISSION/SURGERY: 11/01/17 PATIENT OF: Miguel Raymond MD * (DICTATED BY SARY HARPER) PRIMARY CARE PHYSICIAN: Manoj Velasquez DO PRIMARY BRASS CHASER: Dr. Milian. CHIEF COMPLAINT: Abdominal pain. HISTORY OF PRESENT ILLNESS: Ms. Cohen is a pleasant 72-year-old female who presented to the emergency room earlier today with complaints of lower abdominal pain for the past 24 hours. She described her pain as being dull with sharp episodes, localized to both right and left lower quadrants, as well as suprapubic area. Her pain started roughly last night without any initiating factors. She describes associated nausea and 1 episode of vomiting this morning. She also described tactile fever at home and just not feeling well overall. She has never had any similar complaints in the past. She has never had a colonoscopy in the past; however, she was told in the remote past that she might have diverticulosis. She denies any episodes of left lower quadrant pain or recent changes in the bowel habits. Prior to this episode of abdominal pain, she was in her usual state of health. She had past medical history significant for atrial fibrillation and sick sinus syndrome, for which she had a pacemaker placed. She also tells me today that she is scheduled on next Saturday to undergo some cardiac ablation at [facility]. She denies any chest pain, shortness of breath or any other associated symptoms. During her ED visit today, she had laboratory workup that revealed mild leukocytosis with white count of 12,000. A CT of the abdomen and pelvis with oral contrast was consistent with sigmoid diverticulitis with possible abscess collection, for which we were asked to see the patient for further evaluation. PAST MEDICAL HISTORY: As mentioned above, significant for atrial fibrillation for which the patient has been anticoagulated on Coumadin. She also has history of sicks sinus syndrome as well as hypertension and hyperlipidemia. PAST SURGICAL HISTORY: Significant for pacemaker placement. CURRENT MEDICATIONS: Her medications at home include: 1. Amiodarone 200 mg p.o. b.i.d. 2. Lipitor 20 mg p.o. daily. 3. Vitamin D3, 1000 units p.o. daily. 4. Lasix 20 mg p.o. daily. 5. Magnesium oxide 400 mg p.o. daily. 6. Metoprolol 50 mg p.o. b.i.d. 7. Potassium chloride tablets 10 mEq p.o. b.i.d. 8. Warfarin 3 mg p.o. daily. ALLERGIES: Multiple antibiotic allergies including AZITHROMYCIN, CEPHALEXIN, DOXYCYCLINE, PENICILLINS, and LORAZEPAM. FAMILY HISTORY: Significant for breast cancer on her mother's side, but she denies any history of colorectal malignancies. SOCIAL HISTORY: The patient lives locally. She is a nonsmoker, who denies alcohol intake, and caffeine intake is minimal. REVIEW OF SYSTEMS: See HPI, otherwise negative. She denies any headache, dizziness, blurred vision, or syncope. No sore throat, cough, wheezing or shortness of breath. She denies any chest pain, palpitation. No back pain, flank pain, dysuria, hematuria, or urinary frequency. She admits to tactile fever at home last night, but denies any shaking chills or recent weight loss. She admits to lower abdominal pain with associated nausea and 1 episode of vomiting, but denies any recent changes in her bowel habits or bleeding per rectum. PHYSICAL EXAMINATION GENERAL: She is a pleasant elderly female, appears healthy and in no acute distress or discomfort at the time of admission. VITAL SIGNS: Most recent set of vitals was temperature of 99.6, pulse of 60, blood pressure of 122/51, oxygen saturation of 95% on room air. HEENT: Head is normocephalic, atraumatic. Sclerae anicteric. PERRLA. EOMs intact. Oropharynx is pink and moist. NECK: Supple. Trachea midline. No cervical adenopathy or thyromegaly. LUNGS: Clear to auscultation bilaterally. HEART: Regular rate and rhythm. Normal S1 and S2. BACK: Normal curvature. No CVA tenderness. BREAST EXAM: Deferred at this time. ABDOMEN: Soft and nondistended. Bowel sounds are normoactive in all quadrants. There is moderate bilateral lower abdominal tenderness noted on palpation with some guarding, but no rigidity or rebound tenderness noted. There are no hernias, masses or hepatosplenomegaly noted. Focal tenderness was noted on the suprapubic area as well. EXTREMITIES: Without cyanosis, clubbing, or edema. RECTAL: Deferred at this time. NEUROLOGIC: Grossly intact. LABORATORY WORKUP: The patient had laboratory workup today that revealed a white count of 12,200, hemoglobin of 13, hematocrit of 39 and platelets of 151, 000. Her INR today is 2.43. Chemistry panel revealed sodium of 135, potassium 3.4, chloride 101, CO2 25, BUN of 18, and creatinine of 0.9. Her LFTs and lipase all within normal limits. Urinalysis revealed a trace of ketones and positive urobilinogen, otherwise negative. ACCESSORY DIAGNOSTIC DATA: CT scan of the abdomen and pelvis was performed earlier with oral contrast that revealed evidence of perforated sigmoid colon with severe colonic diverticulosis and early perienteric abscess noted. There is also evidence consistent with foci of gas along the right fallopian tube concerning for potential fistulization from the pathologic process to the sigmoid colon. IMPRESSION: A 72-year-old female with acute onset of lower abdominal pain and CT scan finding consistent with perforated sigmoid diverticulitis, as well as early perienteric abscess collection as well as questionable early fistulization process from the sigmoid colon involving the right fallopian tube. PLAN: The patient will be admitted under surgical services. The case was discussed with Dr. Raymond and a CT scan was reviewed by him as well. Dr. Merlos was requested for consultation from a medical perspective given the patient's longstanding history of sick sinus syndrome, as well as atrial fibrillation. She is currently on target from anticoagulation purposes. However, we will hold her Coumadin for the time being and likely to use heparin as needed for DVT prophylaxis. I discussed with the patient and her daughter, Carmen, who is the healthcare proxy about the possibility of surgical intervention if no clinical improvement noted with IV antibiotics and n.p.o. status. We will plan to cover her empirically with meropenem and we will repeat her laboratory workup tomorrow for further evaluation. Again, she appears to be comfortable at this time with no evidence of acute abdomen. However, we will reassess the patient this afternoon and evaluate her for possible surgery if indicated. SARY HARPER [id number]/[facility] #: [id number] [place]
--- NOTE | 2017-11-01 16:09 | HP ---
CC: Dr. Velasquez; Dr. Milian; Dr. Raymond * HISTORY AND PHYSICAL: DATE OF ADMISSION: 11/01/17 PRIMARY CARE PROVIDER: Dr. Velasquez. PRIMARY DENTAL HYGIENE PROFESSOR: Dr. Milian. ATTENDING PROVIDER: Dr. Merlos * (DICTATED BY SARY BOWLES) CHIEF COMPLAINT: Abdominal pain. HISTORY OF PRESENT ILLNESS: Mrs. Cohen is a 72-year-old female patient who carries a history of Afib, CHF, last known EF was 20% to 25%. The patient also carries a history of sick sinus syndrome status post pacemaker, hyperlipidemia, and again the history of Afib. She comes into the emergency department today stating that last night she developed lower abdominal discomfort that just was getting progressively worse. It was unrelenting. She said the last couple of days she had been feeling well. In fact, she was up in [place] the day before and was feeling well. She was not really having any pain. She said the pain just got much worse last night. She noticed that any time she moved position, it made it much worse. She did not get any nausea or vomiting with the exception today when she drank the p.o. contrast and she started vomiting significantly. She denied having any diarrhea. She denied having any blood in the stool. She states that her abdomen was just constant pain, mostly in the lower belly area. She said she has a history of diverticulosis, never had diverticulitis. She denied any recent chest pain or shortness of breath. She states she can walk up a flight of stairs. She has not had any chest pain recently and the last time she was in the hospital was in July with pneumonia and since then she has been doing well. She was evaluated here today. Ultimately, it was noted that she appeared to have diverticulitis with a perforation and abscess formation, and because of this we were asked to evaluate for admission. PAST MEDICAL HISTORY: Significant for: 1. Afib. 2. CHF with last EF 20% to 25%. 3. Sick sinus syndrome status post pacemaker. 4. Hyperlipidemia. PAST SURGICAL HISTORY: She has had a pacemaker placement only. HOME MEDICATIONS: Include: 1. Warfarin 2 mg p.o. daily. 2. Lopressor 50 mg p.o. b.i.d. 3. Potassium 10 mEq p.o. b.i.d. 4. Magnesium oxide 400 mg p.o. daily. 5. Vitamin D3, 1000 units p.o. daily. 6. Lipitor 20 mg daily. 7. Lasix 20 mg p.o. daily as needed. 8. Amiodarone 200 mg p.o. b.i.d. ALLERGIES TO MEDICATIONS: Include: 1. AZITHROMYCIN. 2. KEFLEX. 3. DOXYCYCLINE. 4. LORAZEPAM. 5. PENICILLIN. FAMILY HISTORY: Mother had a history of breast cancer. Father had a history of heart disease. SOCIAL HISTORY: She does not smoke. Occasionally drinks alcohol. Surrogate decision maker is Carmen. REVIEW OF SYSTEMS: There is no documented fever. She did admit to having chills. She denied any significant weight change. There was no double vision. There is no ear discharge. She denies having any rhinorrhea. No sore throat. No thyroid enlargement. Denied having any chest pain. There is no orthopnea and there is no nocturnal dyspnea. There is abdominal pain per my HPI. There was 1 episode of nausea and vomiting here in the ED. She denies having any dysuria, no frequency. There was no seizure, no loss of conscious, no pruritus and no skin ulcerations. Review of 14 systems completed, all others negative. PHYSICAL EXAMINATION GENERAL: At this time, Mrs. Cohen is a 72-year-old female patient. She appears to be well nourished, well developed. She does not appear to be in any acute distress. VITAL SIGNS: Blood pressure 122/51, pulse 60, respirations 18, O2 sat 95%, and temperature 99.6. HEENT: Head is atraumatic, normocephalic. Eyes: EOMs are intact. Sclerae anicteric and not pale. Throat: Oral mucosa appears to be dry. No oropharyngeal erythema. NECK: Supple. LUNGS: Clear to auscultation bilaterally. There was no wheezes, rales, or rhonchi. HEART: Sounds S1 and S2. She had a regular rate and rhythm. She had no murmurs, rubs, or gallops. ABDOMEN: Soft. Bowel sounds were present. There was tenderness diffusely particularly in the lower abdomen. She was not really tender in the upper quadrants and she was nondistended. EXTREMITIES: Pulses were 2+ throughout. She is moving all 4 extremities with 5 /5 strength. NEUROLOGIC: She is awake. She is alert. She is oriented x3. She had no gross focal deficits. SKIN: Intact. LABORATORY DATA/DIAGNOSTIC STUDIES: Her labs revealed WBC of 12.2, RBC of 4.44 , hemoglobin 13.0, hematocrit of 39, and platelet count of 151,000. INR 2.43. Sodium 135, potassium 3.4, chloride 101, bicarb 25, BUN 18, creatinine 0.94, glucose 116, lactic 1.8, calcium 9.3, mag 1.8, total bili 0.8, AST 21, ALT 13, alk phos 57, troponin 0.00, albumin 3.6, lipase 15. She did have an abdominal and pelvis CT obtained today, impression: Perforated sigmoid colon given presence of severe colonic diverticulosis, acute diverticulitis with perforation, early perienteric abscess is favored; however, followup is needed to exclude a colon carcinoma. Thin walled complex gas and fluid collection along the right margin of the mid sigmoid colon measuring up to 4.2 x 2.1 x 3.1 cm consistent with early abscess, foci of gas along the right fallopian tube concerning for potential fistulization from the pathological process at the sigmoid to the fallopian tube, free intraperitoneal air, suggestion of mild pulmonary edema clinical assessment, noted is a 1.4 cm hypodense lesion at the left lateral hepatic segment and most consistent with a cyst. Consider nonemergent ultrasound for confirmation when clinically feasible. Old medical records were reviewed. ASSESSMENT AND PLAN: Ms. Cohen is a 72-year-old female patient coming into the ED today with complaints of abdominal pain, found to have what appears to be a perforated sigmoid colon secondary to diverticulitis with early abscess formation. We were asked to evaluate for admission. She will admitted under inpatient status for: 1. Perforated diverticulitis with abscess formation. At this point, Dr. Raymond has been consulted and surgical services are following the patient. The plan will be for bowel rest, she will be n.p.o. with the exception of sips and meds. We will go ahead and put her on meropenem for coverage given the fact that she has had QTc prolongation in the past with antiarrhythmics and certain antibiotics and so, we will put her on meropenem to be safe. We will follow serial abdominal exams and we will continue to follow. Should surgery needed to be pursued, she is high risk. I would like to get an EKG and a chest x-ray, but with low EF, she is high risk and I do not think that there is any more that I can do to optimize this patient, so we will try to get her on IV antibiotics. I am going to be holding her Coumadin just in case surgery is pursued for the time being and we will continue to follow. 2. Atrial fibrillation. She appears to be rate controlled currently. I will continue the amiodarone and also will continue her on her beta-agustina. In addition to this, we will hold her warfarin. When her INR falls below 2, I would probably put her on heparin subcu, again in case surgery needs to be pursued. 3. Sick sinus syndrome. She has a pacemaker. We will continue to follow. 4. History of congestive heart failure. We will diurese as needed. I am going to be giving her fluids because in the setting of this acute illness, she obviously will need the fluids. We will diuresis her as needed and we will monitor for heart failure. 5. Hyperlipidemia. I am going to hold her statin in the setting of acute illness. 6. DVT prophylaxis. INR is 2.4, we will allow this to drift down. Once it is less than 2, we will start her on heparin subcu. 7. Code status. Full code. 8. Fluids, electrolytes, and nutrition. She can be n.p.o. except sips of water and pills. TIME SPENT: Time spent on admission, 60 minutes; greater than half the time spent [id number] with the patient obtaining my history and physical, other half of the time spent going over the plan of care with the patient and implementing the plan of care. I did discuss the plan of care with my attending , Dr. Merlos, she is in agreement. GARY GERBER, GENERAL MAGISTRATE [id number]/[facility] #: [id number] SHAB[place]
[2017-11-01 16:33] LABS: Urine Appearance Clear; Urine Blood Negative (Negative); Urine Color Yellow; Urine Ketones Trace (Negative); Urine Protein 1+(30 mg/dL) (Negative); Urine Specific Gravity > 1.060 (1.010-1.030); Urine Urobilinogen Negative (Negative)
[2017-11-01] MEDS: Acetaminophen TAB* 325 MG PO PRN (20:16)
[2017-11-01] MEDS: Meropenem 1 GM PREMIX(*) 1 GM/50 ML BAG IV SCH (20:16)
[2017-11-01] MEDS: Metoprolol Tartrate TAB* 50 mg PO SCH (21:57)
[2017-11-01] MEDS: Amiodarone TAB* 200 MG PO SCH (22:16)
[2017-11-02] MEDS: NS 0.9% 1000 ML* 1,000 ML IV SCH (01:18)
[2017-11-02] MEDS: Morphine INJ* 4 MG/ML 1 ML SYRINGE (NEW SYRINGE VERSION) IV PRN ×5 (01:26→21:29)
[2017-11-02] MEDS ORDERED: Morphine INJ* 4 MG/ML 1 ML SYRINGE (NEW SYRINGE VERSION) ONE (03:43)
[2017-11-02] MEDS ORDERED: Ondansetron INJ* 2 MG/ML VIAL IV PRN ×2 (03:55→04:21)
[2017-11-02] MEDS: Meropenem 1 GM PREMIX(*) 1 GM/50 ML BAG IV SCH ×3 (04:01→20:50)
[2017-11-02 05:56] LABS: ABS Basophils 0.1 10^3/ul (0-0.2); ABS Eosinophils 0 10^3/ul (0-0.6); ABS Lymphocytes 0.2 10^3/ul (1.0-4.8); ABS Monocytes 0.2 10^3/ul (0-0.8); ABS Neutrophils 6.7 10^3/ul (1.5-7.7); ABS Nucleated RBC 0 10^3/ul; Eosinophil % 0 % (0-6); Hematocrit 34 % (35-47); Hemoglobin 11.5 g/dl (12.0-16.0); Lymphocyte % 2.8 % (25-47); Mean Corpuscular HGB Conc 34 g/dl (31-36); Mean Corpuscular Hemoglobin 30 pg (27-31); Mean Corpuscular Volume 88 fL (80-97); Mean Platelet Volume 8.4 um3 (7.4-10.4); Nucleated Red Blood Cells % 0.3; Platelet Count 118 10^3/ul (150-450); Red Blood Count 3.87 10^6/ul (4.0-5.4); Red Cell Distribution Width 16 % (10.5-15); White Blood Count 7.2 10^3/ul (3.5-10.8)
[2017-11-02 06:01] LABS: INR 2.04 (0.77-1.02)
[2017-11-02 06:11] LABS: EGFR Non-African American 60.4 (>60)
[2017-11-02] MEDS ORDERED: [UNRECOGNIZED DRUG - OTHER] PO PRN (06:39)
[2017-11-02] MEDS ORDERED: Metoprolol Tartrate IV* 1 MG/ML 5 ML VIAL IV PRN (08:04)
[2017-11-02] MEDS: Amiodarone TAB* 200 MG PO SCH ×2 (08:06→20:51)
[2017-11-02] MEDS: Metoprolol Tartrate TAB* 50 mg PO SCH (08:06)
[2017-11-02] MEDS: Magnesium Oxide TAB* 400 MG PO SCH (08:06)
--- NOTE | 2017-11-02 08:31 | PN ---
Progress Note - Progress Note Date of Service: 11/02/17 Note: HD#2 Diverticulitis Febrile last night. VS OK, though tachy (prob in a fib.) voiding Pain about the same as yest, though more LLQ than right No N/V, No chills color good Abd soft, tender LLQ ad suprapubic, still some rebound WBC down from yest, still left shift Impr: Divertic w/ contained perf. Labs improving, but still very tender on exam High risk for surgery due to cardiac history Will continue IV abx If she does not defervesce in 24-48 hrs, may need OR.
[2017-11-02] MEDS ORDERED: Metoprolol Succinate XL TAB* 50 MG PO ONE (12:00)
[2017-11-02] MEDS ORDERED: Amiodarone TAB* 400 MG PO ONE (12:03)
--- NOTE | 2017-11-02 17:09 | PN ---
Subjective Date of Service: 11/02/17 Interval History: still complains of abdominal pain, but it has improved since admission. Objective Active Medications: Acetaminophen (Tylenol Tab*) 650 mg PO Q4H PRN PRN Reason: FEVER/PAIN Last Admin: 11/01/17 20:16 Dose: 650 mg Amiodarone HCl (Cordarone Tab*) 200 mg PO BID [facility] Last Admin: 11/02/17 08:06 Dose: 200 mg Meropenem (Merrem 1 Gm Premix(*)) 1 gm in 50 mls @ 100 mls/hr IV Q8H [facility] Last Admin: 11/02/17 11:49 Dose: 100 mls/hr Sodium Chloride (Ns 0.9% 1000 Ml*) 1,000 mls @ 100 mls/hr IV PER RATE [facility] Stop: 11/02/17 22:29 Last Admin: 11/02/17 11:48 Dose: 100 mls/hr Magnesium Oxide (Magox 400 Tab*) 400 mg PO DAILY [facility] Last Admin: 11/02/17 08:06 Dose: 400 mg Metoprolol Succinate (Toprol Xl Tab*) 50 mg PO BID [facility] Metoprolol Tartrate (Lopressor Iv*) 5 mg IV Q6H PRN PRN Reason: HEART RATE/PULSE GREATER THAN: Morphine Sulfate (Morphine Inj (Syringe)*) 3 mg IV Q3H PRN PRN Reason: PAIN Last Admin: 11/02/17 14:54 Dose: 3 mg Nf Med* Biotene 1 admin PO TID PRN PRN Reason: DRY MOUTH Ondansetron HCl (Zofran Inj*) 4 mg IV Q6H PRN PRN Reason: NAUSEA/VOMITING Vital Signs - 8 hr 11/02/17 11/02/17 11/02/17 11:06 11:56 14:09 Temperature 98.2 F Pulse Rate 95 Respiratory 16 16 16 Rate Blood Pressure 116/70 (mmHg) O2 Sat by Pulse 93 Oximetry 11/02/17 11/02/17 14:54 15:13 Temperature 99.6 F Pulse Rate 100 Respiratory 16 20 Rate Blood Pressure 112/65 (mmHg) O2 Sat by Pulse 95 Oximetry Oxygen Devices in Use Now: Nasal Cannula Appearance: alert, well appearing Eyes: No Scleral Icterus Ears/Nose/Mouth/Throat: NL Teeth, Lips, Gums Neck: NL Appearance and Movements; NL JVP Respiratory: Symmetrical Chest Expansion and Respiratory Effort, Clear to Auscultation Cardiovascular: NL Sounds; No Murmurs; No JVD, RRR Abdominal: - - tender to light palpation with guarding Lymphatic: No Cervical Adenopathy Extremities: No Edema Skin: No Rash or Ulcers Neurological: Alert and Oriented x 3 Result Diagrams: 11/02/17 05:43 11/02/17 05:43 Microbiology and Other Data: Microbiology 11/01/17 12:55 Aerobic Blood Culture - Preliminary Blood Venous No Growth Day 1 Anaerobic Blood Culture - Preliminary No Growth Day 1 11/01/17 13:05 Aerobic Blood Culture - Preliminary Blood Venous No Growth Day 1 Anaerobic Blood Culture - Preliminary No Growth Day 1 11/01/17 15:35 Urine Culture - Final Urine No Growth (<1,000 CFU/mL) Assess/Plan/Problems-Billing Assessment: 72 yo female with history of tachy/noman syndrome s/p pacemaker and paroxysmal atrial fibrillation and chronic systolic heart failure admitted with abdominal pain and found to have perforated diverticulitis - Patient Problems (1) Perforated abdominal viscus Current Visit: Yes Status: Acute Code(s): BJQ8831 - SNOMED Code(s): 823740156 Comment: surgery following, on meropenem no OR plans at this time; awaiting further recommendations (2) Afib Current Visit: No Status: Acute Code(s): I48.91 - UNSPECIFIED ATRIAL FIBRILLATION SNOMED Code(s): 23453652 Comment: paroxysmal. one episode of afib with rvr this morning which resolved after her morning scheduled medications. metoprolol and amiodarone increased by dr. burnett this morning with good effect INR therapeutic at 2.04 [id number], so should not need perioperative bridging (3) Pacemaker Current Visit: No Status: Acute Code(s): Z95.0 - PRESENCE OF CARDIAC PACEMAKER SNOMED Code(s): 147236174 Comment: for sick sinus syndrome. (4) Systolic CHF Current Visit: No Status: Acute Code(s): I50.20 - UNSPECIFIED SYSTOLIC ( CONGESTIVE) HEART FAILURE SNOMED Code(s): 984059870 Comment: euvolemic etiology has not been entirely elucidated appreciate cardiology input regarding further workup pre-operatively should she need the OR
--- NOTE | 2017-11-02 20:24 | CONS ---
AMENDED REPORT NOW INCLUDES DATE OF CONSULT - ESIGNED BEFORE ADJUSTMENT CC: Dr. Milian; Dr. Manoj Velasquez * CARDIOLOGY CONSULTATION: DATE OF CONSULT: PATIENT OF: Dr. Milian and Dr. Manoj Velasquez. CONSULTING PHYSICIAN: Dr. Hermelinda Robles. REASON FOR EVALUATION: Cardiomyopathy, AFib preop. HISTORY OF PRESENT ILLNESS: This is a very pleasant 72-year-old woman, who has a longstanding history of paroxysmal atrial fibrillation dating back about 10 years. 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 She had had an evaluation by nuclear stress testing in October of 2014, which was negative for ischemia. She also had an echocardiogram on 10/14/14, which revealed an EF of 50% to 55%, [id number] MR, hopu-io-[id number] TR, moderate pulmonary hypertension similar to June 2012. She had done well until July when she was admitted with pneumonia. She had been in AFib persistently for several weeks and her EF was noted to be reduced on July 18, with EF of 20% to 25% , mild concentric LVH, severely reduced LV function, kjfhm-er-[id number] AI, moderate- to-severe MR, khhskpjj-oe-zeiopp TR, PA pressure 49. She underwent transesophageal-guided cardioversion on July 19. At that time, her EF was 30% to 35% with moderate MR, moderate TR, moderate atherosclerotic plaque in the ascending aorta. She was cardioverted and started on amiodarone and primarily had been doing well over the last month until yesterday, until the evening of 10/31/17 when she started getting some chills and abdominal pain and she was admitted with perforated viscus yesterday. She has been treated with antibiotics and may require surgery. Of note, she was also seen at [facility] by Dr.Burr Hdez. He had evaluated her and thought that she might benefit from an ablation given her LV dysfunction and he had scheduled her for a CT angio of her heart, the results of which are not available and scheduled her for an ablation pending this week (which has been canceled due to her diverticulitis). She says that when she feels well, she is able to go up and down stairs without a problem. She was walking up to a mile at a time last fall before the winter. She denies orthopnea, peripheral edema. No syncope or near syncope. No strokes or mini strokes. No bleeding problems. PAST MEDICAL HISTORY: Includes: 1. Cardiomyopathy, presumably tachycardia induced, mlaqbmkn-[id number]-[id number] MR as mentioned before. 2. Paroxysmal atrial fibrillation for about 10 years. 3. Sick sinus syndrome. 4. Hypertension. 5. Hyperlipidemia. 6. This admission, she was found to have on CT a sigmoid diverticulitis with possible abscess collection. 7. LBBB noted 2013 She denies hyperlipidemia, diabetes, or tobacco use. PAST SURGICAL HISTORY: Includes pacemaker in 2014. MEDICATIONS: At home, include: 1. Warfarin. 2. Lopressor 50 mg b.i.d. 3. Potassium 10 mEq b.i.d. 4. Mag oxide 400 mg a day. 5. Vitamin D3 1000 units a day. 6. Lipitor 20 mg a day. 7. Lasix 20 mg as needed. 8. Amiodarone 200 mg p.o. b.i.d. She says that her episodes of AFib have been better controlled on the amiodarone. When she has an episode, she is aware of it, but it does not stop her from doing her ordinary activities. As an inpatient, her medications include: 1. Acetaminophen. 2. Amiodarone 200 mg b.i.d. 3. Magnesium 400 mg daily. 4. Meropenem 1 g q.8. 5. Metoprolol 50 mg b.i.d. 6. She is getting IV fluids. Coumadin is being held. Atorvastatin is being held. Furosemide is being held. ALLERGIES: Include AZITHROMYCIN, KEFLEX, DOXYCYCLINE, LORAZEPAM, PENICILLIN. FAMILY HISTORY: Includes mother, who of cancer at 81; breast cancer. Father of cancer at 72. SOCIAL HISTORY: She is for many years and lives alone. She has 1 daughter, Carmen, who accompanies her. 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 She reports she rarely drinks alcohol. REVIEW OF SYSTEMS: Review of systems x10 was negative except as above. PHYSICAL EXAM: She is a well-developed, well-nourished female, in no apparent distress. Blood pressure 123/68, pulse of 81, temperature of 100.2 down from 102.9 last night. Atraumatic, normocephalic. Extraocular muscles are intact. Sclerae anicteric. No significant JVD. Carotids 2+ without bruits. Cardiac Exam: S1, S2 with 2/6 holosystolic murmur at the left lower sternal border and apex. Chest was clear except for rales at the right base, which cleared with coughing; however, she was splinting somewhat. No CVAT. Abdomen: Bowel sounds present. I did not do an extensive exam due to her tenderness. Femoral pulses intact without bruits. Distal pulses intact. No edema. Motor strength 5 /5 bilaterally. Deep tendon reflexes 2/4. Alert and oriented x3. Homans' sign negative. Skin turgor normal. DIAGNOSTIC STUDIES/LAB DATA: Include white count of 7.2 down from 12.2 yesterday, hematocrit 34, platelet count of 118 down from 151. Sodium 135, potassium of 4 up from 3.4 yesterday, BUN of 15, creatinine of 0.91, calcium low at 8.5, magnesium 1.9 up from 1.8. INR was 2.0 this morning. Chest x-ray by report reveals findings suggestive of congestive heart failure. EKG revealed sinus rhythm, left bundle branch block, atrial paced rhythm. EKG from last night also revealed atrial sensing with left bundle branch block. The bundle branch block was there is August. The bundle branch block was not there in July 2012, but was there on 11/08/14. IMPRESSION AND PLAN: My impression is that Ms. 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 She also has left bundle branch block that is new since 2011. She has tachy-noman syndrome, hypertension, hyperlipidemia, and atherosclerotic disease of her aorta. She currently has sigmoid diverticulitis and possible abscess and may require surgery. I have discussed the case with the patient, her family, and _. For the time being, I am recommended the followin. Given her preserved exercise capacity up to now, I think that she is an acceptable risk for surgery. 2. Agree with holding her Coumadin and cover her with bridging anticoagulation as needed given her risk for cardioembolic events, given her relatively high CHADS2- VASc score of 4. 3. She is to have an echo to reassess her left ventricular function and alveolar lesions. 4. She had a CAT scan with Dr. Merlos. It is unclear whether they screened for coronary artery disease, but it will be nice to obtain those results at some point. 5. If she continues to have left ventricular dysfunction with unclear etiology , we would consider catheterization to exclude coronary disease. 6. We would suggest increasing her rate control with advancing her beta agustina and changing to long-acting metoprolol succinate. 7. We would consider possibility of adding an JOCELYN inhibitor if her left ventricular function is still depressed. 8. WIll try to obtain the results of her CT Angio from [facility] which may include information about the status of her coronaries. [id number]/[facility] #: [id number] [facility]ICAL CENTERKarl
[2017-11-02] MEDS: Metoprolol Succinate XL TAB* 50 MG PO SCH (20:50)
[2017-11-02] MEDS: Acetaminophen TAB* 325 MG PO PRN (22:52)
[2017-11-03] MEDS: Meropenem 1 GM PREMIX(*) 1 GM/50 ML BAG IV SCH ×3 (03:58→19:48)
[2017-11-03] MEDS: Morphine INJ* 4 MG/ML 1 ML SYRINGE (NEW SYRINGE VERSION) IV PRN ×6 (04:07→21:42)
[2017-11-03 05:36] LABS: ABS Basophils 0 10^3/ul (0-0.2); ABS Eosinophils 0 10^3/ul (0-0.6); ABS Lymphocytes 0.3 10^3/ul (1.0-4.8); ABS Monocytes 0.5 10^3/ul (0-0.8); ABS Nucleated RBC 0 10^3/ul; Eosinophil % 0.1 % (0-6); Hematocrit 33 % (35-47); Lymphocyte % 3.5 % (25-47); Mean Corpuscular HGB Conc 33 g/dl (31-36); Mean Corpuscular Hemoglobin 29 pg (27-31); Mean Corpuscular Volume 89 fL (80-97); Mean Platelet Volume 8.8 um3 (7.4-10.4); Nucleated Red Blood Cells % 0; Platelet Count 116 10^3/ul (150-450); Red Blood Count 3.73 10^6/ul (4.0-5.4); Red Cell Distribution Width 16 % (10.5-15); White Blood Count 8.8 10^3/ul (3.5-10.8)
[2017-11-03 05:42] LABS: INR 1.67 (0.77-1.02)
[2017-11-03 05:52] LABS: EGFR Non-African American 69.1 (>60)
[2017-11-03] MEDS: Magnesium Oxide TAB* 400 MG PO SCH (08:50)
[2017-11-03] MEDS: Amiodarone TAB* 200 MG PO SCH ×2 (08:50→21:42)
[2017-11-03] MEDS: Metoprolol Succinate XL TAB* 50 MG PO SCH ×2 (08:50→21:42)
--- NOTE | 2017-11-03 10:11 | PN ---
Progress Note - Progress Note Date of Service: 11/03/17 SOAP: Subjective: Still with LLQ abdominal pain but feels better Passing some flatus and loose BM Would like to have something to drink Objective: AFebrile for 24 hours Temp Pulse Resp BP Pulse Ox 97.7 F 76 16 107/55 99 11/03/17 07:22 11/03/17 07:22 11/03/17 08:24 11/03/17 07:22 11/03/17 07:22 Intake & Output 11/01/17 11/02/17 11/03/17 11/04/17 06:59 06:59 06:59 06:59 Intake Total 3093 2277 Output Total 650 775 Balance 2443 1502 Weight 175 lb Intake: IV Fluids 2518 1967 NS (0.9%) 1018 960 meropenem 1007 IVPB 335 110 chloride 280 meropenem 55 110 Oral 240 200 Output: Urine 300 775 Straight Cath 350 Other: Estimated Void Medium # Bowel Movements 0 # Voids 1 PEX: Comfortable Abd is soft and slightly distended. Bowel sounds are present and slightly high pitched. Tenderness in the LLQ with some guarding, localized peritoneal irritation. No generalized peritoneal irritation or tenderness. Laboratory Results - last 24 hr 11/03/17 11/03/17 11/03/17 05:22 05:22 05:22 WBC 8.8 RBC 3.73 L Hgb 11.0 L Hct 33 L MCV 89 MCH 29 MCHC 33 RDW 16 H Plt Count 116 L MPV 8.8 Neut % (Auto) 90.9 H Lymph % (Auto) 3.5 L Mills % (Auto) 5.4 Eos % (Auto) 0.1 Baso % (Auto) 0.1 Absolute Neuts (auto) 8.0 H Absolute Lymphs (auto) 0.3 L Absolute Monos (auto) 0.5 Absolute Eos (auto) 0 Absolute Basos (auto) 0 Absolute Nucleated RBC 0 Nucleated RBC % 0 INR (Anticoag Therapy) 1.67 H Sodium 135 Potassium 4.0 Chloride 105 Carbon Dioxide 25 Anion Gap 5 BUN 19 Creatinine 0.81 Est GFR ( Amer) 88.9 Est GFR (Non-Af Amer) 69.1 BUN/Creatinine Ratio 23.5 H Glucose 98 Calcium 8.7 Magnesium 2.1 Troponin I 0.01 B-Natriuretic Peptide 11/03/17 05:22 WBC RBC Hgb Hct MCV MCH MCHC RDW Plt Count MPV Neut % (Auto) Lymph % (Auto) Mills % (Auto) Eos % (Auto) Baso % (Auto) Absolute Neuts (auto) Absolute Lymphs (auto) Absolute Monos (auto) Absolute Eos (auto) Absolute Basos (auto) Absolute Nucleated RBC Nucleated RBC % INR (Anticoag Therapy) Sodium Potassium Chloride Carbon Dioxide Anion Gap BUN Creatinine Est GFR ( Amer) Est GFR (Non-Af Amer) BUN/Creatinine Ratio Glucose Calcium Magnesium Troponin I B-Natriuretic Peptide 2093 H Assessment: Sigmoid diverticulitis with localized perforation without definite sign of abscess She feels slightly better today-no fevers for 24 hours and WBC normal. Cardiac history Plan: Continue IV abx-no indications for surgical intervention at present-hopefully emergent laparotomy with colostomy can be avoided. If persistent pain, will consider repeat CT in 24-48 hours to evaluate for abscess. Medical management of cardiac issues She can have clear liquids po All of the above discussed with patient and her daughter,.
--- NOTE | 2017-11-03 10:33 | ECHO ---
Patient: RADHA NUNEZ [facility] Rec#: [id number] : 1945 Date: 11/03/2017 Age: 72y Height: 167.64 cm / 66.0 in Weight: 79.38 kg / 175.0 lbs Sex: F BSA: 1.89 Room#: 440 Admit Date#: 11/01/2017 Type: Inpatient Referring: Alexi Miller MD Reading: Alexi Miller MD Salesperson Furniture: Lazara Beverly RD,RDMS CC: Manoj Velasquez DO Transthoracic Echocardiogram Indication: Cardiomyopathy BP: 124/67 HR: 83 Rhythm: A-Fib Findings History: AFIB SSS, HTN HLS, pacemaker, cardiomyopathy, MV insufficiency. Technical Comments: The study quality is good. Left Ventricle: The left ventricular chamber size is normal. Mild concentric left ventricular hypertrophy is observed. There is global hypokinesis of the left ventricle with minor regional variation.The best preserved segments are at the base of the LV and the posterolateral bains There is severely decreased left ventricular systolic function. The estimated ejection fraction is 25-30%. closer to 25%. There is a left ventricular septal wall motion abnormality observed, possibly due to the presence of a left bundle branch block. The assessment of diastolic function is non-diagnostic. The basal anteroseptal, basal anterior, basal inferior, basal inferoseptal, mid anterior, mid inferior, apical septal, apical anterior, apical lateral, and apical inferior wall segments are hypokinetic (score 2). The mid anteroseptal, and mid inferoseptal wall segments are dyskinetic (score 4). Overall wallmotion score index is 2.00 Left Atrium: The left atrium is severely dilated. Right Ventricle: The right ventricle wall thickness is mildly increased. The right ventricular cavity size is normal. The right ventricular global systolic function is moderately reduced. A pacemaker wire is visualized in the right ventricle. Right Atrium: The right atrium is moderate to severely dilated. Aortic Valve: The aortic valve is trileaflet. The aortic valve leaflets are mildly thickened. There is a trace of aortic regurgitation. There is no evidence of aortic stenosis. Mitral Valve: The mitral valve leaflets are mildly thickened. There is moderate mitral regurgitation. with an eccentric jet directed posteriorly. There is no evidence of mitral stenosis. Tricuspid Valve: The tricuspid valve leaflets are normal. There is moderate tricuspid regurgitation. The right ventricular systolic pressure is estimated at 50 mmHg. There is evidence of moderate pulmonary hypertension. Pulmonic Valve: The pulmonic valve appears normal. There is a trace pulmonic regurgitation. Pericardium: There is no significant pericardial effusion. Aorta: The aortic root appears normal. There is no dilatation of the aortic arch. Pulmonary Artery: The main pulmonary artery appears normal. Venous: The inferior vena cava appears normal in size. There is an approximate 50% respiratory change in the inferior vena cava dimension. Conclusions Mild concentric left ventricular hypertrophy is observed. There is global hypokinesis of the left ventricle with minor regional variation. The best preserved segments are at the base of the LV and the posterolateral bains There is severely decreased left ventricular systolic function. The estimated ejection fraction is 25-30%, closer to 25%. There is a left ventricular septal wall motion abnormality observed, possibly due to the presence of a left bundle branch block. The left atrium is severely dilated. The right ventricle wall thickness is mildly increased. The right ventricular global systolic function is moderately reduced. The right atrium is moderate to severely dilated. The aortic valve leaflets are mildly thickened. There is moderate mitral regurgitation with an eccentric jet directed posteriorly. There is moderate tricuspid regurgitation. There is evidence of moderate pulmonary hypertension. The right ventricular systolic pressure is estimated at 50 mmHg. Similar to the RHYS of 07/18/17 Measurements Name Value Normal Range RVIDd (AP) 2D 3.2 cm (0.9 - 2.6) RVDdMajor (2D) 2.9 cm (2.2 - 4.4) RAd ISD 4CH 6.5 cm (3.4 - 4.9) RA (A4C)W 5.1 cm (2.9 - 4.6) IVSd (2D) 1.3 cm (0.6 - 1) LVPWd (2D) 1.1 cm (0.6 - 1) LVIDd (2D) 5.1 cm (3.6 - 5.4) LVIDs (2D) 4.1 cm - LV FS (2D) 19 % (25 - 45) Aortic Annulus 2 cm (1.4 - 2.6) Ao root diameter (2D) 3.2 cm (2.1 - 3.5) Ascending Ao 2.6 cm (2.1 - 3.4) Aortic arch 2.9 cm (1.8 - 3.4) LA dimension (AP) 2D 5.1 cm (2.3 - 3.8) LAd ISD 4CH 6.2 cm (2.9 - 5.3) LA ISD 4CH W 5.6 cm (2.5 - 4.5) Name Value Normal Range LA ESV SP 4CH (A/L) 124.44 ml - LA ESV SP 2CH (A/L) 73.15 ml - LA ESV BP (A/L) 99.12 ml - LA ESV BP (A/L) index 52 ml/m2 - LA ESV SP 4CH (MOD) 114.35 ml - LA ESV SP 2CH (MOD) 65.8 ml - Name Value Normal Range MV E-wave Vmax 1.2 m/sec - MV deceleration time 182 msec - LV lateral e' Vmax 0.08 m/sec - LV E:e' lateral ratio 15 ratio - Name Value Normal Range AV Vmax 1.5 m/sec - AV VTI 28 cm - AV peak gradient 9 mmHg - AV mean gradient 4.8 mmHg - LVOT diameter 2 cm - LVOT Vmax 1 m/sec - LVOT VTI 18 cm - LVOT peak gradient 4 mmHg - LVOT mean gradient 1.9 mmHg - JESSY (continuity Vmax) 2.1 cm2 - JESSY (continuity VTI) 2 cm2 - JOSE Vmax 0.6 m/sec - Name Value Normal Range MV Vmax 1.4 m/sec - MV VTI 24 cm - MV peak gradient 8 mmHg - MV mean gradient 3.2 mmHg - MV PHT 70 msec - MR Vmax 4.7 m/sec - MR VTI 143 cm - MR flow (PISA) 95 ml/sec - MR PISA radius 0.7 cm - MR alias Vmax 35 cm/sec - MVA (PHT) 3.1 cm2 - MVA (continuity VTI) 2.3 cm2 - Name Value Normal Range TR Vmax 3.3 m/sec - TR peak gradient 29 mmHg - RAP 8 mmHg - RVSP 50 mmHg - IVC diameter 2.1 cm - Name Value Normal Range PV Vmax 0.7 m/sec - PV peak gradient 2 mmHg - Wallmotion BAS Hypokinetic BA Hypokinetic BAL Normal LUCILA Normal BI Hypokinetic BIS Hypokinetic MAS Dyskinetic MA Hypokinetic MAL Normal MIL Normal GA Hypokinetic MIS Dyskinetic Hypokinetic AA Hypokinetic AL Hypokinetic AI Hypokinetic APEX Hypokinetic
[2017-11-03] MEDS ORDERED: Digoxin IV* 0.5 MG/2 ML AMP (0.25 MG/ML) IV SLOW PU ONE ×2 (12:42→16:00)
--- NOTE | 2017-11-03 15:19 | PN ---
Subjective Date of Service: 11/03/17 Interval History: feels about the same today. pain is controlled. afebrile overnight. heart rate has been poorly controlled but she denies shortness of breath, palpitations , or chest pain. Social History: Unchanged from Admission Past Medical History: Unchanged from Admission Objective Active Medications: Acetaminophen (Tylenol Tab*) 650 mg PO Q4H PRN PRN Reason: FEVER/PAIN Last Admin: 11/02/17 22:52 Dose: 650 mg Amiodarone HCl (Cordarone Tab*) 200 mg PO BID [facility] Last Admin: 11/03/17 08:50 Dose: 200 mg Digoxin (Digoxin Iv*) 0.25 mg IV SLOW PU ONCE ONE Stop: 11/03/17 16:01 Enoxaparin Sodium (Lovenox(*)) 70 mg SUBCUT Q12H [facility] Meropenem (Merrem 1 Gm Premix(*)) 1 gm in 50 mls @ 100 mls/hr IV Q8H [facility] Last Admin: 11/03/17 11:26 Dose: 100 mls/hr Magnesium Oxide (Magox 400 Tab*) 400 mg PO DAILY [facility] Last Admin: 11/03/17 08:50 Dose: 400 mg Metoprolol Succinate (Toprol Xl Tab*) 50 mg PO BID [facility] Last Admin: 11/03/17 08:50 Dose: 50 mg Metoprolol Tartrate (Lopressor Iv*) 5 mg IV Q6H PRN PRN Reason: HEART RATE/PULSE GREATER THAN: Morphine Sulfate (Morphine Inj (Syringe)*) 3 mg IV Q3H PRN PRN Reason: PAIN Last Admin: 11/03/17 14:26 Dose: 3 mg Nf Med* Biotene 1 admin PO TID PRN PRN Reason: DRY MOUTH Ondansetron HCl (Zofran Inj*) 4 mg IV Q6H PRN PRN Reason: NAUSEA/VOMITING Vital Signs - 8 hr 11/03/17 11/03/17 11/03/17 07:22 08:00 08:24 Temperature 97.7 F Pulse Rate 76 Respiratory 18 16 16 Rate Blood Pressure 107/55 (mmHg) O2 Sat by Pulse 99 Oximetry 11/03/17 11/03/17 11/03/17 10:53 11:05 11:26 Temperature 99.3 F Pulse Rate 108 Respiratory 18 18 18 Rate Blood Pressure 116/76 (mmHg) O2 Sat by Pulse 98 Oximetry 11/03/17 11/03/17 11/03/17 12:42 12:55 14:26 Temperature Pulse Rate 102 Respiratory 20 16 Rate Blood Pressure (mmHg) O2 Sat by Pulse Oximetry Oxygen Devices in Use Now: Nasal Cannula Appearance: alert, no distress, nontoxic Eyes: No Scleral Icterus Neck: NL Appearance and Movements; NL JVP Respiratory: Symmetrical Chest Expansion and Respiratory Effort, Clear to Auscultation Cardiovascular: - - tachycardic, no murmurs Abdominal: - - diffusely tender to palpation, worst in the RLQ, + guarding Lymphatic: No Cervical Adenopathy Extremities: No Edema Skin: No Rash or Ulcers Neurological: Alert and Oriented x 3 Result Diagrams: 11/03/17 05:22 11/03/17 05:22 Microbiology and Other Data: Microbiology 11/01/17 12:55 Aerobic Blood Culture - Preliminary Blood Venous No Growth Day 1 Anaerobic Blood Culture - Preliminary No Growth Day 1 11/01/17 13:05 Aerobic Blood Culture - Preliminary Blood Venous No Growth Day 1 Anaerobic Blood Culture - Preliminary No Growth Day 1 11/01/17 15:35 Urine Culture - Final Urine No Growth (<1,000 CFU/mL) Assess/Plan/Problems-Billing Assessment: 72 yo female with history of tachy/noman syndrome s/p pacemaker and paroxysmal atrial fibrillation and chronic systolic heart failure admitted with abdominal pain and found to have perforated diverticulitis - Patient Problems (1) Perforated abdominal viscus Current Visit: Yes Status: Acute Code(s): ZLZ9875 - SNOMED Code(s): 129040211 Comment: surgery following, on meropenem no OR plans at this time pain is controlled (2) Systolic CHF Current Visit: No Status: Acute Code(s): I50.20 - UNSPECIFIED SYSTOLIC ( CONGESTIVE) HEART FAILURE SNOMED Code(s): 947283179 Comment: chronic, compensated etiology has not been entirely determined; she has not had a LHC, which may be warranted ef 25% on TTE this morning; initially cardiomyopathy artur thought to be tachycarda-mediated, but her hr has reportedly been well-controlled and she still has a depressed ef, so further work up may be pursued cardiology following (3) Afib Current Visit: No Status: Acute Code(s): I48.91 - UNSPECIFIED ATRIAL FIBRILLATION SNOMED Code(s): 55572300 Comment: paroxysmal. poorly controlled today; digoxin added by dr. burnett. metoprolol and amiodarone increased yesterday perioperative bridging with lovenox ([id number]) (4) Pacemaker Current Visit: No Status: Acute Code(s): Z95.0 - PRESENCE OF CARDIAC PACEMAKER SNOMED Code(s): 262907709 Comment: for sick sinus syndrome.
[2017-11-03] MEDS: Enoxaparin(*) 80 MG/0.8 ML SYR SUBCUT SCH (16:13)
[2017-11-04] MEDS: Morphine INJ* 4 MG/ML 1 ML SYRINGE (NEW SYRINGE VERSION) IV PRN ×6 (02:03→22:26)
[2017-11-04] MEDS: Enoxaparin(*) 80 MG/0.8 ML SYR SUBCUT SCH ×2 (04:59→16:09)
[2017-11-04] MEDS: Meropenem 1 GM PREMIX(*) 1 GM/50 ML BAG IV SCH ×3 (05:00→20:19)
[2017-11-04 06:12] LABS: Hematocrit 35 % (35-47); Hemoglobin 11.5 g/dl (12.0-16.0); Mean Corpuscular HGB Conc 33 g/dl (31-36); Mean Corpuscular Hemoglobin 29 pg (27-31); Mean Corpuscular Volume 89 fL (80-97); Mean Platelet Volume 9.4 um3 (7.4-10.4); Platelet Count 156 10^3/ul (150-450); Red Blood Count 3.92 10^6/ul (4.0-5.4); Red Cell Distribution Width 16 % (10.5-15); White Blood Count 9.4 10^3/ul (3.5-10.8)
[2017-11-04 06:17] LABS: INR 2.23 (0.77-1.02)
[2017-11-04 06:24] LABS: EGFR Non-African American 84.6 (>60)
[2017-11-04] MEDS: Magnesium Oxide TAB* 400 MG PO SCH (07:53)
[2017-11-04] MEDS: Amiodarone TAB* 200 MG PO SCH ×2 (07:53→20:19)
[2017-11-04] MEDS: Metoprolol Succinate XL TAB* 50 MG PO SCH ×2 (07:53→20:19)
--- NOTE | 2017-11-04 10:47 | PN ---
Progress Note - Progress Note Date of Service: 11/04/17 Note: Afeb, VS noted voiding Pain gradually improving. She thinks perhaps 50% better than on admission. Abd: Soft, tender suprapubic, left a little greater than right. Still some focal peritioneal irritation. Echo noted. I think she would be at moderately high risk for major abdominal surgery. Will continue iv abx. Cont to monitor. Consider repeat CT A/P in the next few days if exam does not normalize.
--- NOTE | 2017-11-04 12:18 | PN ---
Subjective Date of Service: 11/04/17 Interval History: Patient seen and examined. Denies any fever, fatigue or chills. No n/v, states abdominal pain improving slowly, reports 4/10. Denies chest pain, no SOB, no further complaints. Social History: Unchanged from Admission Past Medical History: Unchanged from Admission Objective Active Medications: Acetaminophen (Tylenol Tab*) 650 mg PO Q4H PRN PRN Reason: FEVER/PAIN Last Admin: 11/02/17 22:52 Dose: 650 mg Amiodarone HCl (Cordarone Tab*) 200 mg PO BID [facility] Last Admin: 11/04/17 07:53 Dose: 200 mg Enoxaparin Sodium (Lovenox(*)) 70 mg SUBCUT Q12H [facility] Last Admin: 11/04/17 04:59 Dose: 70 mg Meropenem (Merrem 1 Gm Premix(*)) 1 gm in 50 mls @ 100 mls/hr IV Q8H [facility] Last Admin: 11/04/17 11:54 Dose: 100 mls/hr Magnesium Oxide (Magox 400 Tab*) 400 mg PO DAILY [facility] Last Admin: 11/04/17 07:53 Dose: 400 mg Metoprolol Succinate (Toprol Xl Tab*) 50 mg PO BID [facility] Last Admin: 11/04/17 07:53 Dose: 50 mg Metoprolol Tartrate (Lopressor Iv*) 5 mg IV Q6H PRN PRN Reason: HEART RATE/PULSE GREATER THAN: Morphine Sulfate (Morphine Inj (Syringe)*) 3 mg IV Q3H PRN PRN Reason: PAIN Last Admin: 11/04/17 11:54 Dose: 3 mg Nf Med* Biotene 1 admin PO TID PRN PRN Reason: DRY MOUTH Ondansetron HCl (Zofran Inj*) 4 mg IV Q6H PRN PRN Reason: NAUSEA/VOMITING Vital Signs - 8 hr 11/04/17 11/04/17 11/04/17 05:03 07:23 08:00 Temperature 97.9 F Pulse Rate 83 Respiratory 18 16 18 Rate Blood Pressure 118/65 (mmHg) O2 Sat by Pulse 100 Oximetry 11/04/17 11/04/17 11/04/17 08:34 11:04 11:54 Temperature 98.0 F Pulse Rate 82 Respiratory 16 16 16 Rate Blood Pressure 118/63 (mmHg) O2 Sat by Pulse 100 Oximetry Oxygen Devices in Use Now: Nasal Cannula Appearance: Alert, NAD Eyes: No Scleral Icterus, PERRLA Ears/Nose/Mouth/Throat: NL Teeth, Lips, Gums, Mucous Membranes Moist Neck: NL Appearance and Movements; NL JVP, Trachea Midline Respiratory: Symmetrical Chest Expansion and Respiratory Effort, Clear to Auscultation Cardiovascular: NL Sounds; No Murmurs; No JVD, No Edema, - - paced Abdominal: - - Tender to palpation RUE, positive BS x4 Extremities: No Edema, No Clubbing, Cyanosis Neurological: Alert and Oriented x 3, NL Sensation, NL Muscle Strength and Tone Result Diagrams: 11/04/17 05:39 11/04/17 05:39 Microbiology and Other Data: Microbiology 11/01/17 12:55 Aerobic Blood Culture - Preliminary Blood Venous No Growth Day 1 Anaerobic Blood Culture - Preliminary No Growth Day 1 11/01/17 13:05 Aerobic Blood Culture - Preliminary Blood Venous No Growth Day 1 Anaerobic Blood Culture - Preliminary No Growth Day 1 11/01/17 15:35 Urine Culture - Final Urine No Growth (<1,000 CFU/mL) Assess/Plan/Problems-Billing Assessment: 72 yo female with history of tachy/noman syndrome s/p pacemaker and paroxysmal atrial fibrillation and chronic systolic heart failure admitted with abdominal pain and found to have perforated diverticulitis, currently on conservative management. - Patient Problems (1) Perforated abdominal viscus Code(s): [id number] - SNOMED Code(s): 544941019 Comment: - Continue meropenem - Moderate surgical risk, per surgery, continue with conservative managment rather than surgery - Pain management as needed (2) Afib Code(s): I48.91 - UNSPECIFIED ATRIAL FIBRILLATION SNOMED Code(s): 24542716 Comment: - History of PAF - Rate improved with digoxin as per Dr. Miller. - Metoprolol and amiodarone increased / - INR therapeutic @2.23, continue to monitor - If going to surgery, would need perioperative bridging with lovenox ( [id number]) (3) DVT prophylaxis Code(s): IJI8056 - SNOMED Code(s): 673482049 Comment: - Theraputic on warfarin (4) Pacemaker Code(s): Z95.0 - PRESENCE OF CARDIAC PACEMAKER SNOMED Code(s): 580864738 Comment: - Hx of sick sinus syndrome. (5) Systolic CHF Code(s): I50.20 - UNSPECIFIED SYSTOLIC (CONGESTIVE) HEART FAILURE SNOMED Code( s): 599727634 Comment: - Chronic, compensated, etiology unclear - Follows with Dr. Miller and was referred to [place], may need [facility] at some point - EF =25% on TTE (6) Full code status Code(s): Z78.9 - OTHER SPECIFIED HEALTH STATUS SNOMED Code(s): 372171712
[2017-11-05] MEDS: Morphine INJ* 4 MG/ML 1 ML SYRINGE (NEW SYRINGE VERSION) IV PRN ×2 (02:31→11:10)
[2017-11-05] MEDS: Enoxaparin(*) 80 MG/0.8 ML SYR SUBCUT SCH (04:29)
[2017-11-05] MEDS: Meropenem 1 GM PREMIX(*) 1 GM/50 ML BAG IV SCH ×3 (04:29→19:41)
[2017-11-05 07:39] LABS: INR 3.81 (0.77-1.02)
--- NOTE | 2017-11-05 08:24 | PN ---
Progress Note - Progress Note Date of Service: 11/05/17 Note: HD#5 divertic Afeb, VS noted uo large, passed BM brain po's, no N/V Pain down, feels better Abd: soft, noticeably less tender, no residual focal rebound. muffler tender mostly suprapubic. Impr: Perf divertic, seems to have turned the corner. Will increase to full liquids Needs to ambulate more Will check labs in AM Will hold off on repeat CT scan as she is improving.
[2017-11-05] MEDS: Amiodarone TAB* 200 MG PO SCH ×2 (09:00→20:32)
[2017-11-05] MEDS: Magnesium Oxide TAB* 400 MG PO SCH (09:00)
[2017-11-05] MEDS: Metoprolol Succinate XL TAB* 50 MG PO SCH ×2 (09:00→20:32)
[2017-11-05] MEDS ORDERED: Digoxin IV* 0.5 MG/2 ML AMP (0.25 MG/ML) IV SLOW PU ONE (13:18)
[2017-11-05] MEDS: Potassium Chloride LIQUID* 20 MEQ PACKET PO SCH (13:49)
[2017-11-05] MEDS: Digoxin TAB* 0.125 MG PO SCH (16:43)
--- NOTE | 2017-11-05 16:44 | PN ---
Subjective Date of Service: 11/05/17 Interval History: Patient seen and examined. Further improvement today, less pain, no n/v. linter tender lower abdomen, no fever or chills, denies chest pain, no SOB. Family at bedside. Social History: Unchanged from Admission Past Medical History: Unchanged from Admission Objective Active Medications: Acetaminophen (Tylenol Tab*) 650 mg PO Q4H PRN PRN Reason: FEVER/PAIN Last Admin: 11/02/17 22:52 Dose: 650 mg Amiodarone HCl (Cordarone Tab*) 200 mg PO BID [facility] Stop: 11/05/17 23:59 Last Admin: 11/05/17 09:00 Dose: 200 mg Amiodarone HCl (Cordarone Tab*) 200 mg PO DAILY [facility] Digoxin (Lanoxin Tab*) 0.125 mg PO 1700 [facility] Meropenem (Merrem 1 Gm Premix(*)) 1 gm in 50 mls @ 100 mls/hr IV Q8H [facility] Last Admin: 11/05/17 11:10 Dose: 100 mls/hr Magnesium Oxide (Magox 400 Tab*) 400 mg PO DAILY [facility] Last Admin: 11/05/17 09:00 Dose: 400 mg Metoprolol Succinate (Toprol Xl Tab*) 50 mg PO BID [facility] Last Admin: 11/05/17 09:00 Dose: 50 mg Metoprolol Tartrate (Lopressor Iv*) 5 mg IV Q6H PRN PRN Reason: HEART RATE/PULSE GREATER THAN: Morphine Sulfate (Morphine Inj (Syringe)*) 3 mg IV Q3H PRN PRN Reason: PAIN Last Admin: 11/05/17 11:10 Dose: 3 mg Nf Med* Biotene 1 admin PO TID PRN PRN Reason: DRY MOUTH Ondansetron HCl (Zofran Inj*) 4 mg IV Q6H PRN PRN Reason: NAUSEA/VOMITING Potassium Chloride (Klor-Con Liquid*) 20 meq PO DAILY [facility] Last Admin: 11/05/17 13:49 Dose: 20 meq Vital Signs - 8 hr 11/05/17 11/05/17 11/05/17 11:10 12:28 13:49 Temperature 97.5 F Pulse Rate 91 104 Respiratory 14 18 Rate Blood Pressure 117/63 (mmHg) O2 Sat by Pulse 93 Oximetry 11/05/17 15:47 Temperature 98.0 F Pulse Rate 93 Respiratory 20 Rate Blood Pressure 129/60 (mmHg) O2 Sat by Pulse 94 Oximetry Oxygen Devices in Use Now: None Appearance: Alert, NAD Eyes: No Scleral Icterus, PERRLA Ears/Nose/Mouth/Throat: NL Teeth, Lips, Gums, Mucous Membranes Moist Neck: NL Appearance and Movements; NL JVP, Trachea Midline Respiratory: Symmetrical Chest Expansion and Respiratory Effort, Clear to Auscultation Cardiovascular: NL Sounds; No Murmurs; No JVD, RRR, No Edema Abdominal: - - soft, mildy tender Extremities: No Edema, No Clubbing, Cyanosis Neurological: Alert and Oriented x 3, NL Muscle Strength and Tone Nutrition: - - advanced to full liquid per surgery today Result Diagrams: 11/04/17 05:39 11/04/17 05:39 Microbiology and Other Data: Microbiology 11/01/17 12:55 Aerobic Blood Culture - Preliminary Blood Venous No Growth Day 1 Anaerobic Blood Culture - Preliminary No Growth Day 1 11/01/17 13:05 Aerobic Blood Culture - Preliminary Blood Venous No Growth Day 1 Anaerobic Blood Culture - Preliminary No Growth Day 1 11/01/17 15:35 Urine Culture - Final Urine No Growth (<1,000 CFU/mL) Assess/Plan/Problems-Billing Assessment: 72 yo female with history of tachy/nmoan syndrome s/p pacemaker and paroxysmal atrial fibrillation and chronic systolic heart failure admitted with abdominal pain and found to have perforated diverticulitis, currently on conservative management. - Patient Problems (1) Perforated abdominal viscus Code(s): [id number] - SNOMED Code(s): 008080285 Comment: - Continue meropenem - Moderate surgical risk, per surgery, continue with conservative managment rather than surgery - Pain management as needed, pain greatly improving - Diet advanced as per Dr. Raymond (2) Afib Code(s): I48.91 - UNSPECIFIED ATRIAL FIBRILLATION SNOMED Code(s): 51130270 Comment: - History of PAF - Rate improved with digoxin as per Dr. Miller. - Metoprolol and amiodarone increased 11/02 - INR high @ 3.38, hold next coumadin dose - If going to surgery, would need perioperative bridging with lovenox ( [id number]) (3) DVT prophylaxis Code(s): WLF9669 - SNOMED Code(s): 553757007 Comment: - Supratheraputic on warfarin, hold coumadin today (4) Pacemaker Code(s): Z95.0 - PRESENCE OF CARDIAC PACEMAKER SNOMED Code(s): 419171790 Comment: - Hx of sick sinus syndrome, stable (5) Systolic CHF Code(s): I50.20 - UNSPECIFIED SYSTOLIC (CONGESTIVE) HEART FAILURE SNOMED Code( s): 879152724 Comment: - Chronic, compensated, etiology unclear - Follows with Dr. Miller and was referred to [place], may need [facility] at some point - EF =25% on TTE (6) Full code status Code(s): Z78.9 - OTHER SPECIFIED HEALTH STATUS SNOMED Code(s): 949140727 Status and Disposition: remain inpatient until , repeat CT scan then
--- NOTE | 2017-11-05 16:49 | CONS ---
CARDIOLOGY EVALUATION: DATE OF CONSULT: 11/05/17. PATIENT OF: Dr. Milian and Dr. Velasquez. HISTORY OF PRESENT ILLNESS: The patient was seen in followup today. Her diverticulitis appears to be improving. She continues to have episodes of AFib with an elevated ventricular response in the 106 to 110 range at rest. As previously reported, her echocardiogram revealed severely reduced LV function with EF of 25% to 30%, closer to the 25%. There appears to be more prominent anteroapical abnormalities. There was moderate MR with an eccentric jet, trace AI, moderate TR, estimated PA pressure of 50. Given her persistent LV dysfunction and atrial fibrillation, she is being considered for ablation for possible tachycardia induced cardiomyopathy, and also raised the possibility of possible ischemic cardiomyopathy given that she had moderate atherosclerosis of the aorta on a previous RHYS from last year and hyperlipidemia. She also has a wide left bundle and there is possibility that she might benefit from AV re- synchronization. For the time being, I have recommended the followin. We will try to obtain the report of her CT angio from Dr. Hdez of [place] to see if they evaluated for coronary artery disease. If not, we will consider cardiac cath. 2. We will also discuss with her candidacy for upgrade to a biventricular pacemaker, ICD. 3. Add digoxin for rate control and reduce her amiodarone back to 200 mg a day. 4. We will consider adding Aldactone and JOCELYN inhibitor for LV dysfunction if indeed blood pressures would allow and her GI tract would recover enough to absorb her medicines. 5. She has been on Lovenox. to bridge her while her Coumadin is being held. However, her INR is up to 3.8. We will stop the Lovenox. 6. We will try to maintain her potassium over 4. 7. She is to follow up with Dr. Milian as an outpatient and Dr. Hdez. [id number]/[facility] #: [id number] Addendum: Discusssed with Dr. Hdez. He was updated. The cardiac CT did not evaluate for coronary disease as per Dr. Hdez. For now, the plan is as follows; She will arrange followup with Dr. Hdez for next week. She will have a cardiac cath (Dr. Hdez will arrange at [place] as per the patient 's request) She will be evaluated for possible upgrade to a biventricular pacer. Dr. Hdez will reevaluate the potential benefits of a AFib ablation. Consider starting a NOAC to replace coumadin at discharge once the INR permits to facilitate control of her anticoagualation which may need to be interrupted for pending proceures. addtional 45 min spent face to face and coordinating care. SHABNAM
[2017-11-06] MEDS: Morphine INJ* 4 MG/ML 1 ML SYRINGE (NEW SYRINGE VERSION) IV PRN (00:07)
[2017-11-06] MEDS: Meropenem 1 GM PREMIX(*) 1 GM/50 ML BAG IV SCH ×3 (03:56→20:29)
[2017-11-06 06:33] LABS: ABS Basophils 0 10^3/ul (0-0.2); ABS Eosinophils 0.3 10^3/ul (0-0.6); ABS Lymphocytes 0.6 10^3/ul (1.0-4.8); ABS Monocytes 0.8 10^3/ul (0-0.8); ABS Neutrophils 7.7 10^3/ul (1.5-7.7); ABS Nucleated RBC 0 10^3/ul; Eosinophil % 2.9 % (0-6); Hematocrit 37 % (35-47); Hemoglobin 12.1 g/dl (12.0-16.0); Lymphocyte % 6.1 % (25-47); Mean Corpuscular HGB Conc 33 g/dl (31-36); Mean Corpuscular Hemoglobin 29 pg (27-31); Mean Corpuscular Volume 87 fL (80-97); Mean Platelet Volume 8.4 um3 (7.4-10.4); Nucleated Red Blood Cells % 0; Platelet Count 236 10^3/ul (150-450); Red Blood Count 4.18 10^6/ul (4.0-5.4); Red Cell Distribution Width 16 % (10.5-15); White Blood Count 9.4 10^3/ul (3.5-10.8)
[2017-11-06 06:41] LABS: INR 2.97 (0.77-1.02)
[2017-11-06 06:51] LABS: EGFR Non-African American 92.4 (>60)
--- NOTE | 2017-11-06 08:08 | PN ---
Progress Note - Progress Note Date of Service: 11/06/17 Note: HD#6 diverticulitis Afeb. VS noted UO good Still poor appetite, tho no N/V Passed more stool Pain better Abd: Soft, railway head tender suprapubic, today R>L. No signif rebound. Labs noted Impr: Greatly improved, but still not ready to go home on oral abx. Will cont abx, and re-scan tomorrow Dr Fournier will cover for me until 11/11/17
[2017-11-06] MEDS: Amiodarone TAB* 200 MG PO SCH (08:21)
[2017-11-06] MEDS: Potassium Chloride LIQUID* 20 MEQ PACKET PO SCH (08:21)
[2017-11-06] MEDS: Metoprolol Succinate XL TAB* 50 MG PO SCH ×2 (08:21→20:29)
[2017-11-06] MEDS: Magnesium Oxide TAB* 400 MG PO SCH (08:21)
[2017-11-06] MEDS: Digoxin TAB* 0.125 MG PO SCH (16:53)
[2017-11-06] MEDS: oxyCODONE/Acetamin 5/325 MG* TAB PO PRN (16:53)
--- NOTE | 2017-11-06 17:30 | PN ---
Subjective Date of Service: 11/06/17 Interval History: Patient seen and examined. States she took morphine overnight, but today pain is a little more persistent. Requested something other than morphine for pain that's more intermediate to see if it helps. Concern that full liquids may be contributing. No chest pain, no SOB, no fevers or chills. Social History: Unchanged from Admission Past Medical History: Unchanged from Admission Objective Active Medications: Acetaminophen (Tylenol Tab*) 650 mg PO Q4H PRN PRN Reason: FEVER/PAIN Last Admin: 11/02/17 22:52 Dose: 650 mg Amiodarone HCl (Cordarone Tab*) 200 mg PO DAILY COUNTS INCLUDE 234 BEDS AT THE [facility] Last Admin: 11/06/17 08:21 Dose: 200 mg Digoxin (Lanoxin Tab*) 0.125 mg PO 1700 COUNTS INCLUDE 234 BEDS AT THE [facility] Last Admin: 11/06/17 16:53 Dose: 0.125 mg Meropenem (Merrem 1 Gm Premix(*)) 1 gm in 50 mls @ 100 mls/hr IV Q8H COUNTS INCLUDE 234 BEDS AT THE [facility] Last Admin: 11/06/17 11:17 Dose: 100 mls/hr Magnesium Oxide (Magox 400 Tab*) 400 mg PO DAILY COUNTS INCLUDE 234 BEDS AT THE [facility] Last Admin: 11/06/17 08:21 Dose: 400 mg Metoprolol Succinate (Toprol Xl Tab*) 50 mg PO BID COUNTS INCLUDE 234 BEDS AT THE [facility] Last Admin: 11/06/17 08:21 Dose: 50 mg Metoprolol Tartrate (Lopressor Iv*) 5 mg IV Q6H PRN PRN Reason: HEART RATE/PULSE GREATER THAN: Morphine Sulfate (Morphine Inj (Syringe)*) 3 mg IV Q3H PRN PRN Reason: PAIN Last Admin: 11/06/17 00:07 Dose: 3 mg Nf Med* Biotene 1 admin PO TID PRN PRN Reason: DRY MOUTH Ondansetron HCl (Zofran Inj*) 4 mg IV Q6H PRN PRN Reason: NAUSEA/VOMITING Last Admin: 11/05/17 19:41 Dose: 4 mg Oxycodone/Acetaminophen (Percocet 5/325 Tab*) 1 tab PO Q6H PRN PRN Reason: PAIN Last Admin: 11/06/17 16:53 Dose: 1 tab Potassium Chloride (Klor-Con Liquid*) 20 meq PO DAILY COUNTS INCLUDE 234 BEDS AT THE [facility] Last Admin: 11/06/17 08:21 Dose: 20 meq Vital Signs - 8 hr 11/06/17 11/06/17 11/06/17 11:17 14:45 15:06 Temperature 97.8 F 97.4 F 98.1 F Pulse Rate 68 73 88 Respiratory 20 16 20 Rate Blood Pressure 121/62 115/65 120/65 (mmHg) O2 Sat by Pulse 95 96 98 Oximetry 11/06/17 16:53 Temperature Pulse Rate 67 Respiratory 16 Rate Blood Pressure (mmHg) O2 Sat by Pulse Oximetry Oxygen Devices in Use Now: None Appearance: Alert, appears uncomfortable, NAD Eyes: No Scleral Icterus, PERRLA Ears/Nose/Mouth/Throat: NL Teeth, Lips, Gums, Clear Oropharnyx, Mucous Membranes Moist Neck: NL Appearance and Movements; NL JVP, Trachea Midline Respiratory: Symmetrical Chest Expansion and Respiratory Effort, Clear to Auscultation Cardiovascular: NL Sounds; No Murmurs; No JVD, - - paced Abdominal: - - diffusly tender with guarding, minimally improved from yesterday' s exam Neurological: Alert and Oriented x 3, NL Gait, NL Muscle Strength and Tone Nutrition: - - full liquids, tolerating Result Diagrams: 11/06/17 06:06 11/06/17 06:06 Microbiology and Other Data: Microbiology 11/01/17 12:55 Aerobic Blood Culture - Preliminary Blood Venous No Growth Day 1 Anaerobic Blood Culture - Preliminary No Growth Day 1 11/01/17 13:05 Aerobic Blood Culture - Preliminary Blood Venous No Growth Day 1 Anaerobic Blood Culture - Preliminary No Growth Day 1 11/01/17 15:35 Urine Culture - Final Urine No Growth (<1,000 CFU/mL) Assess/Plan/Problems-Billing Assessment: 72 yo female with history of tachy/noman syndrome s/p pacemaker and paroxysmal atrial fibrillation and chronic systolic heart failure admitted with abdominal pain and found to have perforated diverticulitis, currently on conservative management. - Patient Problems (1) Perforated abdominal viscus Code(s): PGX8692 - SNOMED Code(s): 345872314 Comment: - Continue meropenem - Pain seems persistent today and still with guarding - Per Dr. Raymond, CT in am to look for drainable collection, would prefer not to do an open surgery. (2) Afib Code(s): I48.91 - UNSPECIFIED ATRIAL FIBRILLATION SNOMED Code(s): 67979885 Comment: - History of PAF - Paced, irregular - Continue digoxin as per Dr. Miller - Metoprolol and amiodarone increased 11/02 - INR therapeutic today, continue coumadin next dose - If going to surgery, would need perioperative bridging with lovenox ( [id number]) (3) DVT prophylaxis Code(s): NFV4186 - SNOMED Code(s): 342790433 Comment: - On warfarin, therapeutic today (4) Pacemaker Code(s): Z95.0 - PRESENCE OF CARDIAC PACEMAKER SNOMED Code(s): 247000446 Comment: - Hx of sick sinus syndrome, stable (5) Systolic CHF Code(s): I50.20 - UNSPECIFIED SYSTOLIC (CONGESTIVE) HEART FAILURE SNOMED Code( s): 610900935 Comment: - Chronic, compensated, etiology unclear - Follows with Dr. Miller and was referred to [place], may need C at some point - EF =25% on TTE (6) Full code status Code(s): Z78.9 - OTHER SPECIFIED HEALTH STATUS SNOMED Code(s): 904187134 Status and Disposition: Inpatient, repeat CT in AM and decide if surgery warranted or not. Counseling and/or Coordination of Care Minutes: coordinated with Dr. Wilkinson
--- NOTE | 2017-11-06 23:46 | PN ---
Subjective Date of Service: 11/06/17 - cc: abdominal discomfort. Interval History: The patient was feeling much better tonight, several bowel movements this afternoon. No palpitations, racing heart, sob. She is very happy leg swelling is not occuring off lasix. Medications Active Medications: Acetaminophen (Tylenol Tab*) 650 mg PO Q4H PRN PRN Reason: FEVER/PAIN Last Admin: 11/02/17 22:52 Dose: 650 mg Amiodarone HCl (Cordarone Tab*) 200 mg PO DAILY [facility] Last Admin: 11/06/17 08:21 Dose: 200 mg Digoxin (Lanoxin Tab*) 0.125 mg PO 1700 [facility] Last Admin: 11/06/17 16:53 Dose: 0.125 mg Meropenem (Merrem 1 Gm Premix(*)) 1 gm in 50 mls @ 100 mls/hr IV Q8H [facility] Last Admin: 11/06/17 20:29 Dose: 100 mls/hr Magnesium Oxide (Magox 400 Tab*) 400 mg PO DAILY [facility] Last Admin: 11/06/17 08:21 Dose: 400 mg Metoprolol Succinate (Toprol Xl Tab*) 50 mg PO BID [facility] Last Admin: 11/06/17 20:29 Dose: 50 mg Metoprolol Tartrate (Lopressor Iv*) 5 mg IV Q6H PRN PRN Reason: HEART RATE/PULSE GREATER THAN: Morphine Sulfate (Morphine Inj (Syringe)*) 3 mg IV Q3H PRN PRN Reason: PAIN Last Admin: 11/06/17 00:07 Dose: 3 mg Nf Med* Biotene 1 admin PO TID PRN PRN Reason: DRY MOUTH Ondansetron HCl (Zofran Inj*) 4 mg IV Q6H PRN PRN Reason: NAUSEA/VOMITING Last Admin: 11/05/17 19:41 Dose: 4 mg Oxycodone/Acetaminophen (Percocet 5/325 Tab*) 1 tab PO Q6H PRN PRN Reason: PAIN Last Admin: 11/06/17 16:53 Dose: 1 tab Potassium Chloride (Klor-Con Liquid*) 20 meq PO DAILY [facility] Last Admin: 11/06/17 08:21 Dose: 20 meq Objective Vital Signs: Temp Pulse Resp BP Pulse Ox 97.1 F 84 18 132/65 95 11/06/17 19:53 11/06/17 19:53 11/06/17 20:41 11/06/17 19:53 11/06/17 19:53 Oxygen Devices in Use Now: None Appearance: older woman, lying 20 degrees, NAD Eyes: No Scleral Icterus, PERRLA Ears/Nose/Mouth/Throat: NL Teeth, Lips, Gums, Clear Oropharnyx, Mucous Membranes Moist Neck: NL Appearance and Movements; NL JVP, No Thyroid Enlargement, Masses Respiratory: Symmetrical Chest Expansion and Respiratory Effort, Clear to Auscultation Cardiovascular: RRR - soft systolic murmur upper sternal boarder. Abdominal: - - soft, non tender. Lymphatic: No Cervical Adenopathy Extremities: No Edema, No Clubbing, Cyanosis Skin: No Rash or Ulcers Neurological: Alert and Oriented x 3, NL Muscle Strength and Tone Lines/Tubes/Other Access: Clean, Dry and Intact Peripheral IV Laboratory Results: 11/06/17 06:06 11/06/17 06:06 INR (Anticoag Therapy) 2.97 (0.77-1.02) H 11/06/17 06:06 Total Bilirubin 0.40 mg/dL (0.2-1.0) 11/06/17 06:06 AST 14 U/L (13-39) 11/06/17 06:06 ALT 11 U/L (7-52) 11/06/17 06:06 Alkaline Phosphatase 45 U/L (34-104) 11/06/17 06:06 B-Natriuretic Peptide 2093 pg/mL (-100) H 11/03/17 05:22 Total Protein 5.7 g/dL (6.4-8.9) L 11/06/17 06:06 Albumin 2.6 g/dL (3.2-5.2) L 11/06/17 06:06 Globulin 3.1 g/dL (2-4) 11/06/17 06:06 Albumin/Globulin Ratio 0.8 (1-3) L 11/06/17 06:06 11/03/17 05:22 Troponin I 0.01 Diagnostic Imaging: Echo 11/03/27: EF 25%, mod MR, Mod TR. Assessment/Plan 72 yo with PAF, RVR, severely depressed EF of 25%, LBBB, admitted with divericulits, seems to be improving. Continue with plans outline in Dr. Miller's consultation of BiV device, AF ablation, outpatient followup with REN Gutiérrez. Continue current medications for now- amiodarone, metoprolol, digoxen and KCl, Mag++.
[2017-11-07] MEDS: Meropenem 1 GM PREMIX(*) 1 GM/50 ML BAG IV SCH ×3 (03:59→19:53)
[2017-11-07] MEDS ORDERED: Iodixanol* (CONTRAST) 320 MG/ML 100 ML SDV IV ONE (09:05)
--- NOTE | 2017-11-07 10:28 | RAD ---
INDICATION: Diverticulitis with perforation and abscess [id number] COMPARISON: November 01, 2017 TECHNIQUE: Axial source images were obtained from the hemidiaphragms to the symphysis pubis following administration of oral and intravenous contrast. 99 mL Visipaque 320 was utilized. Coronal and sagittal reconstructed images were acquired. Lung bases: There is mild, stable, bibasilar interstitial change. This may reflect chronic change; however, if there are chest complaints, suggest a follow-up chest x-ray. There is cardiomegaly. There is pacemaker artifact. Liver: The liver is normal in size. There is a stable 1.2 cm left hepatic lobe lesion likely a cyst or hemangioma. There is mild intrahepatic ductal dilatation. Gallbladder: There are no calcified gallstones. There is no evidence of wall thickening or pericholecystic fluid. The gallbladder is mildly distended and there is radiodensity within the gallbladder consistent with vicarious excretion of contrast. Spleen: The spleen is normal in size. There are no masses. Incidental note is made of a splenic cleft and splenic granulomas. Pancreas: There is no focal pancreatic mass or ductal dilatation. Adrenal glands: There is no evidence of adrenal mass. Kidneys: The kidneys are normal in size and position. There are prompt nephrograms and there is prompt excretion bilaterally. There are no renal parenchymal masses. There is no evidence of nephrolithiasis. Adenopathy: There is no evidence of adenopathy by size criteria. Fluid collections: There is an air-containing localized fluid collection consistent with an abscess.. The abscess is undergone an interval increase in size currently measuring 7. 9 x 6.0 cm in transverse dimensions. Vessels:There are no significant atherosclerotic changes involving the aorta. There is no focal aneurysm. The iliac vessels are normal in caliber. The IVC appears normal. GI tract: There is again a sigmoid diverticular abscess as noted above which is increased in size as has the amount of free air. There is increased pericolonic inflammatory change. There are extensive sigmoid diverticula. There are no additional significant bowel findings Pelvic organs: The uterus and adnexa appear normal Bladder: There are no bladder masses. Abdominal and pelvic soft tissues: The extraperitoneal abdominal and pelvic soft tissues appear normal.. Osseous structures: There are no acute osseous findings. Other: There is moderate free air which is increased. IMPRESSION: THERE IS AGAIN EVIDENCE OF A PERFORATED SIGMOID COLON WITH AN INTERVAL INCREASE IN SIZE OF THE PERIENTERIC ABSCESS. THERE IS ALSO INCREASED INFLAMMATORY CHANGE AND FREE AIR THE REMAINDER THE EXAMINATION IS UNCHANGED. Findings called to referring surgeon.
--- NOTE | 2017-11-07 10:30 | PN ---
Progress Note - Progress Note Date of Service: 11/07/17 SOAP: Subjective: Patient seen and examined at bedside. Reports feeling about the same. Denies significant abdominal pain, nausea, fever or chills. Tolerating liquid diet, moving her bowels. Just returned to her room after a CT scan done this AM. She has no complaints today. Objective: Awake and alert, laying on her bed, apperas comfortable and in NAD Vitals reviewed, Tmax 98.1 Abdomen soft, non-distended. Minimal suprapubic and RLQ tenderness, without guarding, rigidity or rebound. I/Os noted No labs today Assessment: Sigmoid diverticulitis with contained perforation, improving clinically on antibiotics Plan: Await CT findings Continue Abx, DVT and GI prophylaxis Hopefully to avoid any surgical intervention at this time
[2017-11-07] MEDS: Potassium Chloride LIQUID* 20 MEQ PACKET PO SCH (10:50)
[2017-11-07] MEDS: Magnesium Oxide TAB* 400 MG PO SCH (10:51)
[2017-11-07] MEDS: Amiodarone TAB* 200 MG PO SCH (10:51)
[2017-11-07] MEDS: Metoprolol Succinate XL TAB* 50 MG PO SCH ×2 (10:51→20:39)
--- NOTE | 2017-11-07 11:42 | PN ---
Subjective Date of Service: 11/07/17 Interval History: Patient seen and examined. Still with abdominal pain, no n/v/d/c. States she has vaginal burning and itching that started last night. Repeat CT completed this AM. Denies SOB, no chest pain, no fever or chills. Social History: Unchanged from Admission Past Medical History: Unchanged from Admission Objective Active Medications: Acetaminophen (Tylenol Tab*) 650 mg PO Q4H PRN PRN Reason: FEVER/PAIN Last Admin: 11/02/17 22:52 Dose: 650 mg Amiodarone HCl (Cordarone Tab*) 200 mg PO DAILY [facility] Last Admin: 11/07/17 10:51 Dose: 200 mg Digoxin (Lanoxin Tab*) 0.125 mg PO 1700 [facility] Last Admin: 11/06/17 16:53 Dose: 0.125 mg Meropenem (Merrem 1 Gm Premix(*)) 1 gm in 50 mls @ 100 mls/hr IV Q8H [facility] Last Admin: 11/07/17 03:59 Dose: 100 mls/hr Magnesium Oxide (Magox 400 Tab*) 400 mg PO DAILY [facility] Last Admin: 11/07/17 10:51 Dose: 400 mg Metoprolol Succinate (Toprol Xl Tab*) 50 mg PO BID [facility] Last Admin: 11/07/17 10:51 Dose: 50 mg Metoprolol Tartrate (Lopressor Iv*) 5 mg IV Q6H PRN PRN Reason: HEART RATE/PULSE GREATER THAN: Morphine Sulfate (Morphine Inj (Syringe)*) 3 mg IV Q3H PRN PRN Reason: PAIN Last Admin: 11/06/17 00:07 Dose: 3 mg Nf Med* Biotene 1 admin PO TID PRN PRN Reason: DRY MOUTH Ondansetron HCl (Zofran Inj*) 4 mg IV Q6H PRN PRN Reason: NAUSEA/VOMITING Last Admin: 11/05/17 19:41 Dose: 4 mg Oxycodone/Acetaminophen (Percocet 5/325 Tab*) 1 tab PO Q6H PRN PRN Reason: PAIN Last Admin: 11/06/17 16:53 Dose: 1 tab Potassium Chloride (Klor-Con Liquid*) 20 meq PO DAILY [facility] Last Admin: 11/07/17 10:50 Dose: 20 meq Vital Signs - 8 hr 03/11/07/17 11/07/17 07:18 08:00 10:22 Temperature 97.6 F Pulse Rate 68 74 Respiratory 20 20 Rate Blood Pressure 131/71 139/66 (mmHg) O2 Sat by Pulse 98 96 Oximetry 11/07/17 10:58 Temperature 97.8 F Pulse Rate 70 Respiratory 16 Rate Blood Pressure 139/66 (mmHg) O2 Sat by Pulse 98 Oximetry Oxygen Devices in Use Now: None Appearance: Alert, NAD Ears/Nose/Mouth/Throat: NL Teeth, Lips, Gums, Mucous Membranes Moist Neck: NL Appearance and Movements; NL JVP, Trachea Midline Respiratory: Symmetrical Chest Expansion and Respiratory Effort, Clear to Auscultation Cardiovascular: NL Sounds; No Murmurs; No JVD, - - paced Abdominal: - - Mildly tender, diffuse Neurological: Alert and Oriented x 3, NL Gait Result Diagrams: 11/06/17 06:06 11/06/17 06:06 Microbiology and Other Data: Microbiology 11/01/17 12:55 Aerobic Blood Culture - Preliminary Blood Venous No Growth Day 1 Anaerobic Blood Culture - Preliminary No Growth Day 1 11/01/17 13:05 Aerobic Blood Culture - Preliminary Blood Venous No Growth Day 1 Anaerobic Blood Culture - Preliminary No Growth Day 1 11/01/17 15:35 Urine Culture - Final Urine No Growth (<1,000 CFU/mL) Diagnostic Imaging: REPEAT CT SCAN Patient Name: RADHA NUNEZ Medical Record#: [id number] Ordering Physician: Miguel Raymond MD Acct.#: [id number] : 1945 Age: 72 Sex: F Location: [address] [place] [address] MEDICAL/TELEMETRY Exam Date: 11/07/17 07 ADM Status: ADM IN Order Information: CT ABD/PEL W Accession Number: [id number] CPT: 74039 INDICATION: Diverticulitis with perforation and abscess [id number] COMPARISON: November 01, 2017 TECHNIQUE: Axial source images were obtained from the hemidiaphragms to the symphysis pubis following administration of oral and intravenous contrast. 99 mL Visipaque 320 was utilized. Coronal and sagittal reconstructed images were acquired. Lung bases: There is mild, stable, bibasilar interstitial change. This may reflect chronic change; however, if there are chest complaints, suggest a follow-up chest x- ray. There is cardiomegaly. There is pacemaker artifact. Liver: The liver is normal in size. There is a stable 1.2 cm left hepatic lobe lesion likely a cyst or hemangioma. There is mild intrahepatic ductal dilatation. Gallbladder: There are no calcified gallstones. There is no evidence of wall thickening or pericholecystic fluid. The gallbladder is mildly distended and there is radiodensity within the gallbladder consistent with vicarious excretion of contrast. Spleen: The spleen is normal in size. There are no masses. Incidental note is made of a splenic cleft and splenic granulomas. Pancreas: There is no focal pancreatic mass or ductal dilatation. Adrenal glands: There is no evidence of adrenal mass. Kidneys: The kidneys are normal in size and position. There are prompt nephrograms and there is prompt excretion bilaterally. There are no renal parenchymal masses. There is no evidence of nephrolithiasis. Adenopathy: There is no evidence of adenopathy by size criteria. Fluid collections: There is an air-containing localized fluid collection consistent with an abscess.. The abscess is undergone an interval increase in size currently measuring 7. 9 x 6.0 cm in transverse dimensions. Vessels:There are no significant atherosclerotic changes involving the aorta. There is no focal aneurysm. The iliac vessels are normal in caliber. The IVC appears normal. GI tract: There is again a sigmoid diverticular abscess as noted above which is increased in size as has the amount of free air. There is increased pericolonic inflammatory change. There are extensive sigmoid diverticula. There are no additional significant bowel findings Pelvic organs: The uterus and adnexa appear normal Bladder: There are no bladder masses. Abdominal and pelvic soft tissues: The extraperitoneal abdominal and pelvic soft tissues appear normal.. Osseous structures: There are no acute osseous findings. Other: There is moderate free air which is increased. IMPRESSION: THERE IS AGAIN EVIDENCE OF A PERFORATED SIGMOID COLON WITH AN INTERVAL INCREASE IN SIZE OF THE PERIENTERIC ABSCESS. THERE IS ALSO INCREASED INFLAMMATORY CHANGE AND FREE AIR THE REMAINDER THE EXAMINATION IS UNCHANGED. Findings called to referring surgeon. <Electronically signed by Nicola Gonzalez MD in [place]> 11/07/17 1025 Dictated By: Nicola Gonzalez MD Dictated Date/Time: 11/07/17 1025 Transcribed Date/Time: 11/07/17 1003 Copy to: Assess/Plan/Problems-Billing Assessment: 72 yo female with history of tachy/noman syndrome s/p pacemaker and paroxysmal atrial fibrillation and chronic systolic heart failure admitted with abdominal pain and found to have perforated diverticulitis, currently on conservative management. - Patient Problems (1) Perforated abdominal viscus Code(s): NVT4265 - SNOMED Code(s): 815992288 Comment: - Continue meropenem - Pain seems persistent today and still with guarding - Repeat CT as above, discussed with Dr. José, patient will be evaluated this afternoon for potentially drainable abscess. - Continue pain control as needed. (2) Afib Code(s): I48.91 - UNSPECIFIED ATRIAL FIBRILLATION SNOMED Code(s): 59668804 Comment: - History of PAF - Paced, irregular - Continue digoxin as per Dr. Miller - Metoprolol and amiodarone increased 11/02 - Stable - INR therapeutic today, continue coumadin next dose - If going to surgery, would need perioperative bridging with lovenox ( [id number]) (3) Pacemaker Code(s): Z95.0 - PRESENCE OF CARDIAC PACEMAKER SNOMED Code(s): 678887668 Comment: - Hx of sick sinus syndrome, stable (4) Systolic CHF Code(s): I50.20 - UNSPECIFIED SYSTOLIC (CONGESTIVE) HEART FAILURE SNOMED Code( s): 271833252 Comment: - Chronic, compensated, etiology unclear - Follows with Dr. Miller and was referred to [place], may need [facility] at some point - EF =25% on TTE (5) Full code status Code(s): Z78.9 - OTHER SPECIFIED HEALTH STATUS SNOMED Code(s): 198914152 (6) DVT prophylaxis Code(s): SGD0464 - SNOMED Code(s): 311571715 Comment: - On warfarin, therapeutic today (7) Yeast infection of the vagina Code(s): B37.3 - CANDIDIASIS OF VULVA AND VAGINA SNOMED Code(s): 71400708 Comment: - diflucan and topical clotrimazole ordered - likely 2/2 atbx therapy Status and Disposition: Remain inpatient for additional surgical evaluation
[2017-11-07] MEDS: oxyCODONE/Acetamin 5/325 MG* TAB PO PRN (11:53)
[2017-11-07] MEDS ORDERED: Fluconazole 100 MG TAB* TAB PO ONE (12:00)
[2017-11-07] MEDS ORDERED: Clotrimazole 1% VAGINAL CREAM* 45 GM VAGINAL SCH (12:00)
--- NOTE | 2017-11-07 13:44 | PN ---
Progress Note - Progress Note Date of Service: 11/07/17 Note: Results of today's CT abd/pel reviewed by ,reveals sigmoid abscess is larger;per Dr Medley is amenable to percutaneous drainage;INR2.97 today, discussed need for reversal with Vitamin K with [employer] Tami Sheets today; percutaneous drainage ordered for 11/08/17;I spoke with and informed her of the plan and she understands and agrees;INR ordered for 11/08/17 early am.
[2017-11-07] MEDS ORDERED: fentaNYL* 50 MCG/ML 2 ML VIAL (100 MCG VIAL) ONE (15:54)
[2017-11-07] MEDS ORDERED: Naloxone* 0.4 MG/ML 1 ML VIAL ONE (15:54)
[2017-11-07 16:26] LABS: INR 2.66 (0.77-1.02)
[2017-11-07] MEDS: Morphine INJ* 4 MG/ML 1 ML SYRINGE (NEW SYRINGE VERSION) IV PRN (18:32)
[2017-11-07] MEDS: Digoxin TAB* 0.125 MG PO SCH (18:32)
[2017-11-07] MEDS: Clotrimazole 1% VAGINAL CREAM* 45 GM VAGINAL SCH (20:39)
--- NOTE | 2017-11-07 20:43 | RAD ---
CPT II Codes: 6100F CT AND ULTRASOUND-GUIDED RIGHT LOWER QUADRANT PERITONEAL ABSCESS DRAIN PLACEMENT. INDICATION: Diverticular abscess in the right lower quadrant COMPARISON: CT abdomen pelvis dated November 07, 2017 acquired at 0922 hours PROCEDURE NOTE AND FINDINGS: The indication, alternatives therapies, benefits and risks of the procedure were explained to the patient and informed consent was obtained. The patient was brought to the CT suite and positioned in the supine position . A time out was preformed with the technologist and nursing staff. The patient was prepped and draped in the usual sterile fashion. The patient was given intravenous fentanyl and local anesthesia with 1% lidocaine. Ultrasound imaging of the pigtail drainage tract did not reveal any pulsating arterial branches. An image was saved. Utilizing CT imaging prior to drain placement followed by real-time sonographic guidance, a 10 Cymraes pigtail drainage catheter was inserted into the right lower quadrant fluid collection according to the trocar technique. Aspiration yielded approximately 30 mL of malodorous, dark woo serous fluid with fibrinous material. A sample was sent for laboratory analysis. The drain was secured to the skin and dressed with sterile gauze. The patient tolerated the procedure well without incident. The patient was transported back to her inpatient room in stable condition. IMPRESSION: Uncomplicated CT and ultrasound guided placement of a 10-Cymraes pigtail drainage catheter into the right peritoneal abscess as described in the body of the report. Plan: 1. Follow-up laboratory analysis of sample. 2. The drain should be flushed with approximately 10 mL sterile saline every 8 hours. 3. Drainage bag to gravity.
[2017-11-08] MEDS: Meropenem 1 GM PREMIX(*) 1 GM/50 ML BAG IV SCH ×3 (03:51→20:23)
[2017-11-08] MEDS: Morphine INJ* 4 MG/ML 1 ML SYRINGE (NEW SYRINGE VERSION) IV PRN (03:51)
[2017-11-08 06:33] LABS: EGFR Non-African American 95.9 (>60)
[2017-11-08] MEDS: Amiodarone TAB* 200 MG PO SCH (08:31)
[2017-11-08] MEDS: Metoprolol Succinate XL TAB* 50 MG PO SCH ×2 (08:31→20:24)
[2017-11-08] MEDS: Magnesium Oxide TAB* 400 MG PO SCH (08:31)
[2017-11-08] MEDS: Potassium Chloride LIQUID* 20 MEQ PACKET PO SCH (08:31)
[2017-11-08] MEDS: Clotrimazole 1% VAGINAL CREAM* 45 GM VAGINAL SCH ×3 (09:16→20:24)
[2017-11-08] MEDS: oxyCODONE/Acetamin 5/325 MG* TAB PO PRN (11:01)
--- NOTE | 2017-11-08 11:27 | PN ---
Progress Note - Progress Note Date of Service: 11/08/17 SOAP: Subjective: Patient seen and examined at bedside. Feeling much better today. Ambulatory, loose BMs yesterday and this AM. Denies any pain, nausea, vomiting, fever or chills. IR operative note reviewed, successful abscess drainage with pigtail drain in place. Wants to go home today if possible. Objective: Awake and alert, comfortable in bed VSS, afebrile Abdomen soft and non-distended. Mild suprapubic tenderness, but less guarding. Drain secured with approx 20 cc of purulent output. I/Os noted No labs today Assessment: A 72 y/o female with perforated sigmoid diverticulitis, s/p IR drain placement for intra-abdominal abscess collection, clinically improving. Plan: Continue IV antibiotics, ? switch to PO Abx in anticipation for discharge soon. Advance diet DVT and GI prophylaxis If continues to improve, likely home in AM
--- NOTE | 2017-11-08 15:32 | PN ---
Subjective Date of Service: 11/08/17 Interval History: Patient seen and examined. Feeling better, no abdominal pain. Perc drain has moderate output. Afebrile, no chills, no n/v. Diet advanced as per surgery today. Social History: Unchanged from Admission Past Medical History: Unchanged from Admission Objective Active Medications: Acetaminophen (Tylenol Tab*) 650 mg PO Q4H PRN PRN Reason: FEVER/PAIN Last Admin: 11/02/17 22:52 Dose: 650 mg Amiodarone HCl (Cordarone Tab*) 200 mg PO DAILY [facility] Last Admin: 11/08/17 08:31 Dose: 200 mg Clotrimazole (Gyne-Lotrimin 1% Vaginal Cream*) 1 applic VAGINAL TID [facility] Last Admin: 11/08/17 13:50 Dose: Not Given Digoxin (Lanoxin Tab*) 0.125 mg PO 1700 [facility] Last Admin: 11/07/17 18:32 Dose: 0.125 mg Meropenem (Merrem 1 Gm Premix(*)) 1 gm in 50 mls @ 100 mls/hr IV Q8H [facility] Last Admin: 11/08/17 12:33 Dose: 100 mls/hr Magnesium Oxide (Magox 400 Tab*) 400 mg PO DAILY [facility] Last Admin: 11/08/17 08:31 Dose: 400 mg Metoprolol Succinate (Toprol Xl Tab*) 50 mg PO BID [facility] Last Admin: 11/08/17 08:31 Dose: 50 mg Metoprolol Tartrate (Lopressor Iv*) 5 mg IV Q6H PRN PRN Reason: HEART RATE/PULSE GREATER THAN: Morphine Sulfate (Morphine Inj (Syringe)*) 3 mg IV Q3H PRN PRN Reason: PAIN Last Admin: 11/08/17 03:51 Dose: 3 mg Nf Med* Biotene 1 admin PO TID PRN PRN Reason: DRY MOUTH Ondansetron HCl (Zofran Inj*) 4 mg IV Q6H PRN PRN Reason: NAUSEA/VOMITING Last Admin: 11/05/17 19:41 Dose: 4 mg Oxycodone/Acetaminophen (Percocet 5/325 Tab*) 1 tab PO Q6H PRN PRN Reason: PAIN Last Admin: 11/08/17 11:01 Dose: 1 tab Potassium Chloride (Klor-Con Liquid*) 20 meq PO DAILY [facility] Last Admin: 11/08/17 08:31 Dose: 20 meq Vital Signs - 8 hr 11/08/17 11/08/17 11/08/17 08:00 11:01 11:20 Temperature 97.5 F Pulse Rate 74 Respiratory 18 16 16 Rate Blood Pressure 139/72 (mmHg) O2 Sat by Pulse 99 Oximetry 11/08/17 13:35 Temperature Pulse Rate Respiratory 16 Rate Blood Pressure (mmHg) O2 Sat by Pulse Oximetry Oxygen Devices in Use Now: None Appearance: Alert, ambulatory, NAD Eyes: No Scleral Icterus, PERRLA Ears/Nose/Mouth/Throat: NL Teeth, Lips, Gums, Mucous Membranes Moist Neck: NL Appearance and Movements; NL JVP, Trachea Midline Respiratory: Symmetrical Chest Expansion and Respiratory Effort, Clear to Auscultation Cardiovascular: No Edema, - - paced, underlying afib Extremities: No Edema, No Clubbing, Cyanosis Skin: No Rash or Ulcers Neurological: Alert and Oriented x 3, NL Gait Nutrition: Taking PO's Result Diagrams: 11/06/17 06:06 11/08/17 05:53 Microbiology and Other Data: Microbiology 11/01/17 12:55 Aerobic Blood Culture - Preliminary Blood Venous No Growth Day 1 Anaerobic Blood Culture - Preliminary No Growth Day 1 11/01/17 13:05 Aerobic Blood Culture - Preliminary Blood Venous No Growth Day 1 Anaerobic Blood Culture - Preliminary No Growth Day 1 11/01/17 15:35 Urine Culture - Final Urine No Growth (<1,000 CFU/mL) Diagnostic Imaging: REPEAT CT SCAN Patient Name: RADHA NUNEZ Medical Record#: [id number] Ordering Physician: Miguel Raymond MD Acct.#: [id number] : 1945 Age: 72 Sex: F Location: [address] [place] [address] MEDICAL/TELEMETRY Exam Date: 11/07/17 0700 ADM Status: ADM IN Order Information: CT ABD/PEL W Accession Number: [id number] CPT: 40324 INDICATION: Diverticulitis with perforation and abscess [id number] COMPARISON: November 01, 2017 TECHNIQUE: Axial source images were obtained from the hemidiaphragms to the symphysis pubis following administration of oral and intravenous contrast. 99 mL Visipaque 320 was utilized. Coronal and sagittal reconstructed images were acquired. Lung bases: There is mild, stable, bibasilar interstitial change. This may reflect chronic change; however, if there are chest complaints, suggest a follow-up chest x- ray. There is cardiomegaly. There is pacemaker artifact. Liver: The liver is normal in size. There is a stable 1.2 cm left hepatic lobe lesion likely a cyst or hemangioma. There is mild intrahepatic ductal dilatation. Gallbladder: There are no calcified gallstones. There is no evidence of wall thickening or pericholecystic fluid. The gallbladder is mildly distended and there is radiodensity within the gallbladder consistent with vicarious excretion of contrast. Spleen: The spleen is normal in size. There are no masses. Incidental note is made of a splenic cleft and splenic granulomas. Pancreas: There is no focal pancreatic mass or ductal dilatation. Adrenal glands: There is no evidence of adrenal mass. Kidneys: The kidneys are normal in size and position. There are prompt nephrograms and there is prompt excretion bilaterally. There are no renal parenchymal masses. There is no evidence of nephrolithiasis. Adenopathy: There is no evidence of adenopathy by size criteria. Fluid collections: There is an air-containing localized fluid collection consistent with an abscess.. The abscess is undergone an interval increase in size currently measuring 7. 9 x 6.0 cm in transverse dimensions. Vessels:There are no significant atherosclerotic changes involving the aorta. There is no focal aneurysm. The iliac vessels are normal in caliber. The IVC appears normal. GI tract: There is again a sigmoid diverticular abscess as noted above which is increased in size as has the amount of free air. There is increased pericolonic inflammatory change. There are extensive sigmoid diverticula. There are no additional significant bowel findings Pelvic organs: The uterus and adnexa appear normal Bladder: There are no bladder masses. Abdominal and pelvic soft tissues: The extraperitoneal abdominal and pelvic soft tissues appear normal.. Osseous structures: There are no acute osseous findings. Other: There is moderate free air which is increased. IMPRESSION: THERE IS AGAIN EVIDENCE OF A PERFORATED SIGMOID COLON WITH AN INTERVAL INCREASE IN SIZE OF THE PERIENTERIC ABSCESS. THERE IS ALSO INCREASED INFLAMMATORY CHANGE AND FREE AIR THE REMAINDER THE EXAMINATION IS UNCHANGED. Findings called to referring surgeon. <Electronically signed by Nicola Gonzalez MD in [place]> 11/07/17 1025 Dictated By: Nicola Gonzalez MD Dictated Date/Time: 11/07/17 1025 Transcribed Date/Time: 11/07/17 1003 Copy to: Assess/Plan/Problems-Billing Assessment: 72 yo female with history of tachy/noman syndrome s/p pacemaker and paroxysmal atrial fibrillation and chronic systolic heart failure admitted with abdominal pain and found to have perforated diverticulitis, s/p percutaneous drain insertion 11/07/17. - Patient Problems (1) Perforated abdominal viscus Code(s): KIX4062 - SNOMED Code(s): 616034215 Comment: - Continue meropenem IV through the weekend - Culture from drain with entero faecalis - Transition to Flagyl 250mg BID and Bactrim DS once daily at discharge for 2 weeks. (2) Afib Code(s): I48.91 - UNSPECIFIED ATRIAL FIBRILLATION SNOMED Code(s): 80016044 Comment: - History of PAF - Paced, irregular - Continue digoxin as per Dr. Miller - Metoprolol and amiodarone increased 11/02 - Follow INR, 2.6 11/07, continue coumadin (3) Pacemaker Code(s): Z95.0 - PRESENCE OF CARDIAC PACEMAKER SNOMED Code(s): 594362649 Comment: - Hx of sick sinus syndrome, stable (4) Systolic CHF Code(s): I50.20 - UNSPECIFIED SYSTOLIC (CONGESTIVE) HEART FAILURE SNOMED Code( s): 687416750 Comment: - Chronic, compensated, etiology unclear - Follows with Dr. Miller and was referred to [place] at some point, should be addressed after infection is clear - EF =25% on TTE (5) Yeast infection of the vagina Code(s): B37.3 - CANDIDIASIS OF VULVA AND VAGINA SNOMED Code(s): 68447734 Comment: - diflucan and topical clotrimazole ordered, some relief today - likely 2/2 atbx therapy (6) Full code status Code(s): Z78.9 - OTHER SPECIFIED HEALTH STATUS SNOMED Code(s): 366442746 (7) DVT prophylaxis Code(s): LOI2454 - SNOMED Code(s): 436439529 Comment: - On warfarin, therapeutic today Status and Disposition: Remain inpatient for this weekend as per surgery on meropenem then DC home on PO atbx.
[2017-11-08] MEDS ORDERED: Fluconazole 100 MG TAB* TAB PO ONE (15:34)
[2017-11-08] MEDS: Digoxin TAB* 0.125 MG PO SCH (16:39)
--- NOTE | 2017-11-08 18:45 | PN ---
Subjective Date of Service: 11/08/17 - CC: GI discomfort, improving. Interval History: The patient feels better still since her drain was placed. Unaware of racing palpitations. Medications Active Medications: Acetaminophen (Tylenol Tab*) 650 mg PO Q4H PRN PRN Reason: FEVER/PAIN Last Admin: 11/02/17 22:52 Dose: 650 mg Amiodarone HCl (Cordarone Tab*) 200 mg PO DAILY [facility] Last Admin: 11/08/17 08:31 Dose: 200 mg Clotrimazole (Gyne-Lotrimin 1% Vaginal Cream*) 1 applic VAGINAL TID [facility] Last Admin: 11/08/17 13:50 Dose: Not Given Digoxin (Lanoxin Tab*) 0.125 mg PO 1700 [facility] Last Admin: 11/08/17 16:39 Dose: 0.125 mg Meropenem (Merrem 1 Gm Premix(*)) 1 gm in 50 mls @ 100 mls/hr IV Q8H [facility] Last Admin: 11/08/17 12:33 Dose: 100 mls/hr Magnesium Oxide (Magox 400 Tab*) 400 mg PO DAILY [facility] Last Admin: 11/08/17 08:31 Dose: 400 mg Metoprolol Succinate (Toprol Xl Tab*) 50 mg PO BID [facility] Last Admin: 11/08/17 08:31 Dose: 50 mg Metoprolol Tartrate (Lopressor Iv*) 5 mg IV Q6H PRN PRN Reason: HEART RATE/PULSE GREATER THAN: Morphine Sulfate (Morphine Inj (Syringe)*) 3 mg IV Q3H PRN PRN Reason: PAIN Last Admin: 11/08/17 03:51 Dose: 3 mg Nf Med* Biotene 1 admin PO TID PRN PRN Reason: DRY MOUTH Ondansetron HCl (Zofran Inj*) 4 mg IV Q6H PRN PRN Reason: NAUSEA/VOMITING Last Admin: 11/05/17 19:41 Dose: 4 mg Oxycodone/Acetaminophen (Percocet 5/325 Tab*) 1 tab PO Q6H PRN PRN Reason: PAIN Last Admin: 11/08/17 11:01 Dose: 1 tab Potassium Chloride (Klor-Con Liquid*) 20 meq PO DAILY [facility] Last Admin: 11/08/17 08:31 Dose: 20 meq Objective Vital Signs: Temp Pulse Resp BP Pulse Ox 97.5 F 70 16 139/72 99 11/08/17 11:20 11/08/17 16:39 11/08/17 13:35 11/08/17 11:20 11/08/17 11:20 Oxygen Devices in Use Now: None Appearance: older woman, lying 20 degrees, NAD Eyes: No Scleral Icterus, PERRLA Ears/Nose/Mouth/Throat: NL Teeth, Lips, Gums, Clear Oropharnyx, Mucous Membranes Moist Neck: NL Appearance and Movements; NL JVP, No Thyroid Enlargement, Masses Respiratory: Symmetrical Chest Expansion and Respiratory Effort, Clear to Auscultation Cardiovascular: RRR - soft systolic murmur upper sternal boarder. Abdominal: - - soft, non tender to light palpation Lymphatic: No Cervical Adenopathy Extremities: No Edema, No Clubbing, Cyanosis Skin: No Rash or Ulcers Neurological: Alert and Oriented x 3, NL Muscle Strength and Tone Lines/Tubes/Other Access: Clean, Dry and Intact Peripheral IV Laboratory Results: 11/06/17 06:06 11/08/17 05:53 INR (Anticoag Therapy) 2.66 (0.77-1.02) H 11/07/17 16:00 Total Bilirubin 0.40 mg/dL (0.2-1.0) 11/06/17 06:06 AST 14 U/L (13-39) 11/06/17 06:06 ALT 11 U/L (7-52) 11/06/17 06:06 Alkaline Phosphatase 45 U/L (34-104) 11/06/17 06:06 B-Natriuretic Peptide 2093 pg/mL (-100) H 11/03/17 05:22 Total Protein 5.7 g/dL (6.4-8.9) L 11/06/17 06:06 Albumin 2.6 g/dL (3.2-5.2) L 11/06/17 06:06 Globulin 3.1 g/dL (2-4) 11/06/17 06:06 Albumin/Globulin Ratio 0.8 (1-3) L 11/06/17 06:06 11/03/17 05:22 Troponin I 0.01 Diagnostic Imaging: Echo 11/03/27: EF 25%, mod MR, Mod TR. EKG Data: Monitor: A. flutter vs. coarse afib.m controlled ventricular rate, 60's. Assessment/Plan 72 yo with PAF, RVR, severely depressed EF of 25%, LBBB, admitted with divericulits with abcess, s/p IR drain, growing enterococcus, improving clinically. AFIB/FLUTTER: Rate is controlled. Continue current medications for now- amiodarone, metoprolol, digoxen. Off coumodin, but INR was supratheraputic yesterday. Follow INR's, start NOAC when OK with surgury and INR below 2, I discussed with the patient. Continue with plans outline in Dr. Miller's consultation of BiV device, AF ablation, outpatient followup with [facility] Gutiérrez once GI process is stable.
[2017-11-09] MEDS: oxyCODONE/Acetamin 5/325 MG* TAB PO PRN ×3 (00:35→23:05)
[2017-11-09] MEDS: Meropenem 1 GM PREMIX(*) 1 GM/50 ML BAG IV SCH ×2 (03:49→12:24)
[2017-11-09] MEDS ORDERED: Morphine VIAL* 4 MG/ML VIAL (1 ml vial) IV PRN (04:00)
[2017-11-09 07:43] LABS: INR 2.14 (0.77-1.02)
--- NOTE | 2017-11-09 08:28 | PN ---
Progress Note - Progress Note Date of Service: 11/09/17 SOAP: Subjective: Continues to feel better-much less pain and tolerating po Having BM's Slept well last night Objective: Temp Pulse Resp BP Pulse Ox 97.4 F 72 18 134/73 99 11/09/17 03:20 11/09/17 03:20 11/09/17 03:20 11/09/17 03:20 11/09/17 03:20 Intake & Output 11/07/17 11/08/17 11/09/17 11/10/17 06:59 06:59 06:59 06:59 Intake Total 218 885 2781 Output Total 2325 2185 1250 Balance -1462 -1425 255 Weight 175 lb Intake: IV Fluids 143 20 15 NS (0.9%) 43 meropenem 100 20 15 IVPB 60 50 meropenem 60 50 Oral 139 308 6657 Pigtail Drain 20 Output: IFEOMA #1 85 50 Urine 2325 2100 1200 Other: Date of Last Bowel 11/08/17 Movement # Bowel Movements 0 1 Estimated Stool Amount Small # Voids 2 2 1 PEX: Abd is soft and slightly distended. Bowel sounds are present. Drain in place with some thick woo drainage in bag Mild suprapubic pain and some tenderness around the drain site. No peritoneal irritation or mass. Assessment: Perforated sigmoid diverticulitis with abscess s/p percutaneous drainage--doing much better Plan: IV to oral antibiotics on d/c OK for d/c home from surgical standpoint and OK to re-start anticoagulation-Dr. Wilkinson's note reviewed. D/C when OK with hospitalist. Home with drain in place-VN consulted for home care Office follow up appointment with [facility] next Sunday 11/12 All above discussed with patient and her daughter.
[2017-11-09] MEDS: Amiodarone TAB* 200 MG PO SCH (09:09)
[2017-11-09] MEDS: Clotrimazole 1% VAGINAL CREAM* 45 GM VAGINAL SCH ×3 (09:09→21:46)
[2017-11-09] MEDS: Magnesium Oxide TAB* 400 MG PO SCH (09:10)
[2017-11-09] MEDS: Metoprolol Succinate XL TAB* 50 MG PO SCH ×2 (09:10→21:46)
[2017-11-09] MEDS: Potassium Chloride LIQUID* 20 MEQ PACKET PO SCH (09:10)
--- NOTE | 2017-11-09 09:30 | PN ---
Subjective Date of Service: 11/09/17 Interval History: Ms. Cohen reports that she is having a bit of abdominal cramping after eating today. She also attributes this to having recently had a bowel movement and going for a walk around the unit. She denies nausea, chest pain or SOB. Social History: Unchanged from Admission Past Medical History: Unchanged from Admission Objective Active Medications: Acetaminophen (Tylenol Tab*) 650 mg PO Q4H PRN Amiodarone HCl (Cordarone Tab*) 200 mg PO DAILY [facility] Clotrimazole (Gyne-Lotrimin 1% Vaginal Cream*) 1 applic VAGINAL TID [facility] Digoxin (Lanoxin Tab*) 0.125 mg PO 1700 [facility] Meropenem (Merrem 1 Gm Premix(*)) 1 gm in 50 mls @ 100 mls/hr IV Q8H [facility] Magnesium Oxide (Magox 400 Tab*) 400 mg PO DAILY [facility] Metoprolol Succinate (Toprol Xl Tab*) 50 mg PO BID [facility] Metoprolol Tartrate (Lopressor Iv*) 5 mg IV Q6H PRN Morphine Sulfate (Morphine Vial*) 3 mg IV Q3H PRN Nf Med* Biotene 1 admin PO TID PRN Ondansetron HCl (Zofran Inj*) 4 mg IV Q6H PRN Oxycodone/Acetaminophen (Percocet 5/325 Tab*) 1 tab PO Q6H PRN Potassium Chloride (Klor-Con Liquid*) 20 meq PO DAILY [facility] Vital Signs: Temp Pulse Resp BP Pulse Ox 97.7 F 62 16 139/61 97 11/09/17 07:36 11/09/17 07:36 11/09/17 07:36 11/09/17 07:36 11/09/17 07:36 Oxygen Devices in Use Now: None Appearance: Female sitting up on edge of bed in NAD Eyes: No Scleral Icterus Ears/Nose/Mouth/Throat: Mucous Membranes Moist Neck: Trachea Midline Respiratory: Symmetrical Chest Expansion and Respiratory Effort, Clear to Auscultation Cardiovascular: NL Sounds; No Murmurs; No JVD, No Edema Abdominal: - - Soft, BS +, IFEOMA drain in place, tender to right lower quadrant Extremities: No Edema Skin: No Rash or Ulcers Neurological: Alert and Oriented x 3, NL Muscle Strength and Tone Nutrition: Taking PO's Result Diagrams: 11/06/17 06:06 11/08/17 05:53 Microbiology and Other Data: . Diagnostic Imaging: . Assess/Plan/Problems-Billing Assessment: Ms. Cohen 72 yo female with history of tachy/noman syndrome s/p pacemaker, paroxysmal atrial fibrillation and chronic systolic heart failure admitted with abdominal pain and found to have perforated diverticulitis, s/p percutaneous drain insertion 11/07/17. - Patient Problems (1) Perforated abdominal viscus Comment: - Appreciate surgery consult, ok for discharge from their perspective - Transition to Flagyl 250mg BID and Bactrim DS once daily, starting today for 2 weeks. - Plan for follow up outpatient follow up with surgery, Tu11/12, will need follow up imaging as well. (2) Afib Comment: - History of PAF - Paced, irregular - Continue digoxin as per Dr. Millre. Metoprolol and amiodarone increased 11/02 - Follow INR, transition to NOAC when < 2 (3) Pacemaker Comment: - Hx of sick sinus syndrome, stable (4) Systolic CHF Comment: - Chronic, compensated, etiology unclear - Follows with Dr. Miller and was referred to [place], may need [facility] at some point, should be addressed after infection is clear - EF =25% on TTE (5) Hyperlipidemia Comment: Continue Atorvastatin (6) Yeast infection of the vagina Comment: - Diflucan x 1 done, continue topical clotrimazole - Likely 2/2 atbx therapy (7) DVT prophylaxis Comment: - On warfarin, therapeutic today (8) Full code status Comment: Status and Disposition: Remain inpatient for this weekend as per surgery on meropenem then DC home on PO atbx.
[2017-11-09] MEDS ORDERED: metroNIDAZOLE TAB* 250 MG PO SCH (15:00)
[2017-11-09] MEDS: Digoxin TAB* 0.125 MG PO SCH (17:31)
[2017-11-09] MEDS: metroNIDAZOLE TAB* 250 MG PO SCH (17:32)
[2017-11-09] MEDS ORDERED: Ciprofloxacin TAB* 500 MG PO SCH (21:00)
[2017-11-09] MEDS: Sulfamethox/Trimethoprim DS 800/160* TAB PO SCH (21:46)
[2017-11-10] MEDS: metroNIDAZOLE TAB* 250 MG PO SCH (05:33)
[2017-11-10 06:51] LABS: INR 1.36 (0.77-1.02)
[2017-11-10 08:12] VITALS: BP 145/76
--- NOTE | 2017-11-10 08:30 | PN ---
Subjective Date of Service: 11/10/17 Interval History: Ms. Cohen states that she is feeling well and is very eager for discharge to home immediately. Social History: Unchanged from Admission Past Medical History: Unchanged from Admission Objective Active Medications: Acetaminophen (Tylenol Tab*) 650 mg PO Q4H PRN Amiodarone HCl (Cordarone Tab*) 200 mg PO DAILY [facility] Clotrimazole (Gyne-Lotrimin 1% Vaginal Cream*) 1 applic VAGINAL TID [facility] Digoxin (Lanoxin Tab*) 0.125 mg PO 1700 [facility] Magnesium Oxide (Magox 400 Tab*) 400 mg PO DAILY [facility] Metoprolol Succinate (Toprol Xl Tab*) 50 mg PO BID [facility] Metoprolol Tartrate (Lopressor Iv*) 5 mg IV Q6H PRN Metronidazole (Flagyl Tab*) 250 mg PO Q12H [facility] Morphine Sulfate (Morphine Vial*) 3 mg IV Q3H PRN Nf Med* Biotene 1 admin PO TID PRN Ondansetron HCl (Zofran Inj*) 4 mg IV Q6H PRN Oxycodone/Acetaminophen (Percocet 5/325 Tab*) 1 tab PO Q6H PRN Potassium Chloride (Klor-Con Liquid*) 20 meq PO DAILY [facility] Trimethoprim/Sulfamethoxazole (Bactrim Ds 800/160 Tab*) 1 tab PO DAILY [facility] Vital Signs: Temp Pulse Resp BP Pulse Ox 97.5 F 74 16 145/76 100 11/10/17 07:52 11/10/17 07:52 11/10/17 07:52 11/10/17 07:52 11/10/17 07:52 Oxygen Devices in Use Now: None Appearance: Female sitting up in chair in NAD Eyes: No Scleral Icterus Ears/Nose/Mouth/Throat: Mucous Membranes Moist Neck: Trachea Midline Respiratory: Symmetrical Chest Expansion and Respiratory Effort, Clear to Auscultation Cardiovascular: NL Sounds; No Murmurs; No JVD, No Edema Abdominal: NL Sounds; No Tenderness; No Distention Lymphatic: No Cervical Adenopathy, No Axillary Adenopathy Skin: No Rash or Ulcers Neurological: Alert and Oriented x 3, NL Muscle Strength and Tone Lines/Tubes/Other Access: Clean, Dry and Intact Other Access - IFEOMA drain in situ , right lower quadrant Nutrition: Taking PO's Result Diagrams: 11/06/17 06:06 11/08/17 05:53 Microbiology and Other Data: . Diagnostic Imaging: . Assess/Plan/Problems-Billing Assessment: Ms. Cohen 72 yo female with history of tachy/noman syndrome s/p pacemaker, paroxysmal atrial fibrillation and chronic systolic heart failure admitted with abdominal pain and found to have perforated diverticulitis, s/p percutaneous drain insertion 11/07/17. - Patient Problems (1) Perforated abdominal viscus Comment: - Appreciate surgery consult, ok for discharge from their perspective - Transition to Flagyl 250mg BID and Bactrim DS once daily for 2 weeks. - Plan for follow up outpatient follow up with surgery, Tu11/12, will need follow up imaging as well. (2) Afib Comment: - History of PAF - Paced, irregular - Continue digoxin as per Dr. Miller. Metoprolol and amiodarone increased 11/02 - Start eliquis (3) Pacemaker Comment: - Hx of sick sinus syndrome, stable (4) Systolic CHF Comment: - Chronic, compensated, etiology unclear - Follows with Dr. Miller and was referred to [place], may need [facility] at some point, should be addressed after infection is clear - EF =25% on TTE (5) Hyperlipidemia Comment: Continue Atorvastatin (6) Yeast infection of the vagina Comment: - Diflucan x 1 done, continue topical clotrimazole - Likely 2/2 atbx therapy (7) DVT prophylaxis Comment: - Eliquis (8) Full code status Comment: Status and Disposition: Discharge to home.
[2017-11-10] MEDS: Metoprolol Succinate XL TAB* 50 MG PO SCH (08:45)
[2017-11-10] MEDS: Sulfamethox/Trimethoprim DS 800/160* TAB PO SCH (08:45)
[2017-11-10] MEDS: Potassium Chloride LIQUID* 20 MEQ PACKET PO SCH (08:45)
[2017-11-10] MEDS: Magnesium Oxide TAB* 400 MG PO SCH (08:46)
[2017-11-10] MEDS: oxyCODONE/Acetamin 5/325 MG* TAB PO PRN (08:47)
[2017-11-10] MEDS: Amiodarone TAB* 200 MG PO SCH (08:47)
[2017-11-10] MEDS: Clotrimazole 1% VAGINAL CREAM* 45 GM VAGINAL SCH (08:48)
--- NOTE | 2017-11-10 10:08 | PN ---
Progress Note - Progress Note Date of Service: 11/10/17 Note: Surgery I met with Ms. Cohen to review care of the drain site. She indicated that she is comfortable with flushing the drain, but had questions about the dressing. I reviewed some principles of care and advised her to call if she had any questions after discharge. She believes she has an appointment in the office next week. At the end of our discussion, she had no further questions. Awilda
--- NOTE | 2017-11-10 13:10 | DS ---
CC: Dr. Velasquez; Dr. Milian * DISCHARGE SUMMARY: DATE OF ADMISSION: 11/01/17 DATE OF DISCHARGE: 11/10/17. PRIMARY CARE PHYSICIAN: Dr. Velasquez. LEADERSHIP PROGRAM INTERNSHIP: Dr. Milian. ATTENDING PHYSICIAN: Ridge Griffiths MD * (dictation provided by Shakira Maloney NP ) PRIMARY DIAGNOSIS: Perforated sigmoid colon with abscess s/p IFEOMA drain placement. SECONDARY DIAGNOSES: 1. Atrial fibrillation. 2. Congestive heart failure with EF 20% to 25%. 3. Sick sinus syndrome status post pacemaker. 4. Hyperlipidemia. MEDICATIONS AT THE TIME OF DISCHARGE: 1. Potassium chloride 10 mEq p.o. b.i.d. 2. Magnesium oxide 400 mg p.o. daily. 3. Cholecalciferol 1000 units p.o. daily. 4. Atorvastatin 20 mg p.o. daily. 5. Oxycodone/acetaminophen 5/325 one tab p.o. q. 6 hours p.r.n. (total 20 tabs) . 6. Metronidazole 250 mg p.o. q. 12 hours x2 weeks. 7. Bactrim DS 1 tab p.o. daily x2 weeks. 8. Metoprolol succinate 50 mg p.o. b.i.d. 9. Digoxin 0.125 mg p.o. daily. 10. Clotrimazole 1% vaginal cream t.i.d. as needed for symptoms of vaginal yeast infection. 11. Eliquis 5 mg p.o. b.i.d. 12. Amiodarone 200 mg p.o. daily (new dose). HOSPITAL COURSE: Ms. Cohen is a 72-year-old female who originally presented to the hospital on 11/01/17 with concern for abdominal pain. Please see dictated H and P from Navi Temple, nurse practitioner, for complete details. The patient has a history of AFib, CHF with known EF of 20% to 25% as well as sick sinus syndrome with pacemaker. The patient states that the night prior to arrival, she developed lower abdominal pain that was progressively worsening. In the emergency room, she had a CT of the abdomen and pelvis that was read as follows: "Perforated sigmoid colon given presence of severe colonic diverticulosis, acute diverticulitis with perforation and early perienteric abscesses is favored; however, followup is needed to exclude a colon carcinoma. A thin-walled complex gas and fluid collection along the right margin of mid sigmoid colon measuring up to 4.2 x 2.1 x 3.1 cm most consistent with early abscess. Foci of gas along the right fallopian tube concerning for potential fistulization from the pathological process of the sigmoid colon to the fallopian tube. Free intraperitoneal air. Noted 1.4 cm hypodense lesion at the left lateral hepatic segment that is most consistent with a cyst, consider nonemergent ultrasound for confirmation when clinically feasible." The patient had a white count only of 12.2, she was afebrile. The patient was seen in consultation by surgical services and admitted by hospital medicine. The patient was seen in consultation by Dr. Miller from cardiology for cardiac optimization in the event that surgery was indicated. I refer you to his note for full details. He outlined well the patient's previous cardiac history which noted an original echocardiogram from 2014 which showed an intact ejection fraction, but then in July 2017 she was admitted with pneumonia and was found to have an ejection fraction of 20% to 25% with severely reduced LV function. She was in AFib, she was cardioverted, and started on amiodarone. She was then evaluated at the [facility] for possible ablation due to LV dysfunction. At that time, he felt she was an acceptable risk for surgery if needed urgently and agreed with holding her Coumadin which she had been on as outpatient for her history of atrial fibrillation in the event that surgery was needed. A repeat echocardiogram was also recommended. Echocardiogram done 11/02/17 showed persistent ejection fraction of about 25% with a severely dilated left atrium, as well as moderate-to- severely dilated right atrium and this was felt to be similar to the RHYS from 07/18/17. The patient continued to be followed by Dr. Fournier and his team. She continued on broad-spectrum antibiotics. On 11/07/17, she had an abdominal ultrasound and placement of a 10-Lithuanian pigtail drainage catheter into the right peritoneal abscess. She had a CT abdomen and pelvis on 11/07/17 which showed increase in size of the abscess since arrival. Ms. Cohen is doing quite well now. She has decrease in her abdominal pain, she has continued drainage from the IFEOMA drain that was placed on 11/07/17. She is continued on broad-spectrum antibiotics since last night when she was transitioned over to Flagyl and Bactrim, antibiotics that were chosen based on her multiple allergies and history of AFib with some QT prolongation. Ms. Cohen was then seen by surgical services and they feel she is appropriate to be discharged to home, to follow up with them closely in the outpatient setting on 11/12/17. An appointment has been scheduled. In terms of her cardiac history , medications have been adjusted per the recommendations of Dr. Wilkinson and Dr. Miller. She is now on a lower dose of amiodarone, an increased dose of metoprolol, as well as newly started digoxin. With these changes, Ms. Cohen is stable, she is ambulating in the room independently. She is tolerating oral intake well. She has minimal abdominal pain well managed with oxycodone. Ms. Cohen was discharged to home today. DISPOSITION: Home. DIET: Soft, bland. ACTIVITY: As tolerated. FOLLOWUP PLANS: 1. Please follow up with Dr. Fournier on 11/12/17 at 10:15 a.m. 2. Please follow up with Dr. Velasquez in 1 to 2 weeks regarding this acute hospitalization. 3. Please follow up with Dr. Milian or one of his associates within the next month regarding continued management of CHF and AFib. TIME SPENT: Approximately 60 minutes was spent on discharge of this patient, more than half the time spent with the patient at the bedside reviewing the events leading up to this hospitalization, performing the physical examination and reviewing the plan of care. SHAKIRA MALONEY NP [id number]/[facility] #: [id number] SHABNAM
== END 2017-11-10 11:25 | disposition home health service (06) | DRG 392 ==
LOC: ED 07:11 → SSU 12:14 → MEDTELE 11-02 13:27
PROVIDERS: ADMIT Internal Medicine; ATTEND Internal Medicine
PROC: 0W9G30Z Drainage of Peritoneal Cavity with Drainage Device, Percutaneous Approach (ICD-10-PCS; principal; 2017-11-07)
DX: K57.20 Diverticulitis of large intestine with perforation and abscess without bleeding (principal); I42.9 Cardiomyopathy, unspecified; I50.22 Chronic systolic (congestive) heart failure; I48.92 Unspecified atrial flutter; N82.5 Female genital tract-skin fistulae; M19.90 Unspecified osteoarthritis, unspecified site; R40.2412 Glasgow coma scale score 13-15, at arrival to emergency department; E78.5 Hyperlipidemia, unspecified; K57.80 Diverticulitis of intestine, part unspecified, with perforation and abscess without bleeding; K76.9 Liver disease, unspecified; I11.0 Hypertensive heart disease with heart failure; I48.0 Paroxysmal atrial fibrillation; I70.0 Atherosclerosis of aorta; I44.7 Left bundle-branch block, unspecified; R00.0 Tachycardia, unspecified; B95.2 Enterococcus as the cause of diseases classified elsewhere; I08.3 Combined rheumatic disorders of mitral, aortic and tricuspid valves; K44.9 Diaphragmatic hernia without obstruction or gangrene; B37.3 Candidiasis of vulva and vagina; I27.20 Pulmonary hypertension, unspecified; Z88.8 Allergy status to other drugs, medicaments and biological substances; Z88.1 Allergy status to other antibiotic agents; Z88.0 Allergy status to penicillin; Z79.01 Long term (current) use of anticoagulants; Z79.1 Long term (current) use of non-steroidal anti-inflammatories (NSAID); Z98.49 Cataract extraction status, unspecified eye; Z83.3 Family history of diabetes mellitus; Z82.49 Family history of ischemic heart disease and other diseases of the circulatory system; Z80.3 Family history of malignant neoplasm of breast; Z95.0 Presence of cardiac pacemaker
CPT/HCPCS: 36415; 49406; 71045; 74177; 76705; 80048; 80053; 80162; 81003; 81015; 83605; 83690; 83735; 83880; 84484; 85025; 85027; 85610; 85730; 87040; 87070; 87076; 87077; 87086; 87185; 87186; 87205; 87640; 87641; 93005; 93306; 94760; 99285; A9270-GY; J1160; J1650; J2185; J2270; J2310; J2405; J3010; J3475; J3480; Q9967

== ENCOUNTER 2017-12-27 17:15 | Emergency (ER) | payer MEDICARE ==
[2017-12-27] MEDS ORDERED: DOXYcycline CAP(*) 100 MG PO ONE (19:14)
--- NOTE | 2017-12-27 19:15 | ED ---
Skin Complaint - HPI Summary HPI Summary: 72-year-old female presents to tick bites of the left leg. She states it's been there for over 24 hours. She states she has not tried to remove it. She states that she can take doxycycline because she is on warfarin anymore. She is elliquis. She denies any history of tendon rupture. - History of Current Complaint Chief Complaint: EDRashSkinAbscess Time Seen by Provider: 12/27/17 18:51 Stated Complaint: TICK BITE Pain Intensity: 0 - Additional Pertinent History Primary Care Physician: BRAEDEN - Allergy/Home Medications Allergies/Adverse Reactions: Allergies Allergy/AdvReac Type Severity Reaction Status Date / Time azithromycin Allergy See Comment Verified 12/27/17 17:17 cephalexin Allergy See Comment Verified 12/27/17 17:17 doxycycline Allergy See Comment Verified 12/27/17 17:17 lorazepam Allergy Agitation Verified 12/27/17 17:17 Penicillins Allergy See Comment Verified 12/27/17 17:17 Home Medications: Home Medications Amiodarone TAB* [Cordarone Tab*] 200 mg PO BID 12/27/17 [History Confirmed 12/27] Cholecalciferol TAB* [Vitamin D TAB*] 1,000 unit PO DAILY 12/27/17 [History Confirmed 12/27/17] Metoprolol Succinate XL TAB* [Toprol XL TAB*] 25 mg PO BID 12/27/17 [History Confirmed 12/27/17] Spironolactone TAB* [Aldactone TAB*] 25 mg PO DAILY 12/27/17 [History Confirmed 12/27/17] PMH/Surg Hx/FS Hx/Imm Hx Endocrine/Hematology History: Reports: Hx Anticoagulant Therapy Denies: Hx Diabetes Cardiovascular History: Reports: Hx Hypertension, Hx Pacemaker/ICD - 2014 Respiratory History: Reports: Hx Pneumonia, Hx Seasonal Allergies Denies: Hx Asthma, Other Respiratory Problems/Disorders GI History: Reports: Hx Diverticulosis History: Denies: Hx Renal Disease Musculoskeletal History: Reports: Hx Arthritis Sensory History: Reports: Hx Contacts or Glasses Denies: Hx Hearing Aid Opthamlomology History: Reports: Hx Contacts or Glasses - Surgical History Surgery Procedure, Year, and Place: cataract 05/28. pacemaker Hx Anesthesia Reactions: No Infectious Disease History: No Infectious Disease History: Denies: Traveled Outside the [place] in Last 30 Days - Family History Known Family History: Positive: Cardiac Disease, Diabetes Negative: Hypertension - Social History Alcohol Use: Rare Substance Use Type: Reports: None Smoking Status (MU): Never Smoked Tobacco Review of Systems Negative: Fever Negative: Chest Pain Negative: Shortness Of Breath Positive: Other - tick bite left thigh All Other Systems Reviewed And Are Negative: Yes Physical Exam Triage Information Reviewed: Yes Vital Signs On Initial Exam: Initial Vitals Temp Pulse Resp BP Pulse Ox 97.8 F 101 15 128/68 97 12/27/17 17:17 12/27/17 17:17 12/27/17 17:17 12/27/17 17:17 12/27/17 17:17 Vital Signs Reviewed: Yes Appearance: Positive: Well-Appearing Skin: Positive: Warm, Dry, Other - tick on left thigh Head/Face: Positive: Normal Head/Face Inspection Eyes: Positive: Normal, Conjunctiva Clear Respiratory/Lung Sounds: Positive: Clear to Auscultation, Breath Sounds Present Cardiovascular: Positive: Normal, RRR Musculoskeletal: Positive: Normal Neurological: Positive: Normal Psychiatric: Positive: Normal Diagnostics - Vital Signs Vital Signs Temp Pulse Resp BP Pulse Ox 12/27/17 17:17 97.8 F 101 15 128/68 97 - Laboratory Lab Statement: Any lab studies that have been ordered have been reviewed, and results considered in the medical decision making process. Course/Dx - Course Course Of Treatment: 72-year-old female presents to tick bites of the left leg. She states it's been there for over 24 hours. She states she has not tried to remove it. She states that she can take doxycycline because she is on warfarin anymore. She is elliquis. She denies any history of tendon rupture. on exam removed tick from left thigh. give ppx dose of doxycyline. patient understand and agrees with plan. - Differential Diagnoses - Skin Complaint Differential Diagnoses: Contact Dermatitis, Other - lyme, tick bite - Diagnoses Provider Diagnoses: Tick bite Discharge - Sign-Out/Discharge Documenting (check all that apply): Discharge/Admit/Transfer - Discharge Plan Condition: Good Disposition: HOME Patient Education Materials: Tick Bite (ED) Referrals: Manoj Velasquez DO [Primary Care Provider] - Additional Instructions: You have been prophylactically treated for Lyme disease Return to ED if develop any rash or signs of infection - Billing Disposition and Condition Condition: GOOD Disposition: HOME
[2017-12-27 19:41] VITALS: BP 124/69
== END 2017-12-27 19:41 | disposition home or self-care (01) ==
LOC: ED 17:15
DX: S80.862A Insect bite (nonvenomous), left lower leg, initial encounter (principal); W57.XXXA Bitten or stung by nonvenomous insect and other nonvenomous arthropods, initial encounter; Y92.9 Unspecified place or not applicable; I10 Essential (primary) hypertension; Z95.810 Presence of automatic (implantable) cardiac defibrillator
CPT/HCPCS: 99282; A9270-GY

== ENCOUNTER 2018-02-22 11:39 | Emergency (ER) | payer MEDICARE ==
[2018-02-22 11:56] VITALS: BP 131/74
--- NOTE | 2018-02-22 12:06 | UC ---
Lower Extremity/Ankle HPI - HPI Summary HPI Summary: Patient slipped down some stairs 4-5 nights ago has pain in lateral right foot with bruising and jammed her knee- - History of Current Complaint Chief Complaint: UCLowerExtremity Stated Complaint: FOOT INJURY Time Seen by Provider: 02/22/18 11:56 Hx Obtained From: Patient ?: No Onset/Duration: Sudden Onset Pain Intensity: 7 Pain Scale Used: 0-10 Numeric Aggravating Factor(s): Standing, Ambulation Alleviating Factor(s): Rest, Elevation, Ice Able to Bear Weight: Yes - Allergies/Home Medications Allergies/Adverse Reactions: Allergies Allergy/AdvReac Type Severity Reaction Status Date / Time azithromycin Allergy See Comment Verified 02/22/18 11:56 cephalexin Allergy See Comment Verified 02/22/18 11:56 doxycycline Allergy See Comment Verified 02/22/18 11:56 lorazepam Allergy Agitation Verified 02/22/18 11:56 Penicillins Allergy See Comment Verified 02/22/18 11:56 Home Medications: Home Medications Bimatoprost 0.01% OPHTH (NF) [Lumigan 0.01% OPHTH (NF)] 1 drop LEFT EYE QPM [History Confirmed 02/22/18] PMH/Surg Hx/FS Hx/Imm Hx Previously Healthy: No Endocrine History: Dyslipidemia Cardiovascular History: Pacemaker/ICD Other History Of: Anticoagulant Therapy - Surgical History Surgical History: Yes Surgery Procedure, Year, and Place: cataract 05/28. pacemaker - Family History Known Family History: Positive: Cardiac Disease, Diabetes Negative: Hypertension - Social History Occupation: Retired Lives: Alone Alcohol Use: Rare Substance Use Type: None Smoking Status (MU): Never Smoked Tobacco - Immunization History Most Recent Influenza Vaccination: 2017 Most Recent Tetanus Shot: UNKNOWN Most Recent Pneumonia Vaccination: date unknown Review of Systems Constitutional: Negative Skin: Negative Eyes: Negative ENT: Negative Respiratory: Negative Cardiovascular: Negative Gastrointestinal: Negative Genitourinary: Negative Motor: Negative Neurovascular: Negative Musculoskeletal: Arthralgia - right knee and lateral right foot Neurological: Negative Psychological: Negative Is Patient Immunocompromised?: No All Other Systems Reviewed And Are Negative: Yes Physical Exam Triage Information Reviewed: Yes Appearance: Well-Appearing, No Pain Distress, Well-Nourished Vital Signs: Initial Vital Signs Temp 98.1 F 02/22/18 11:53 Pulse 69 02/22/18 11:53 Resp 18 02/22/18 11:53 BP 131/74 02/22/18 11:53 Pulse Ox 99 02/22/18 11:53 Vital Signs Reviewed: Yes Eye Exam: Normal Eyes: Positive: Conjunctiva Clear ENT Exam: Normal ENT: Positive: Normal ENT inspection, Hearing grossly normal. Negative: Trismus , Muffled voice, Hoarse voice Dental Exam: Normal Neck exam: Normal Neck: Positive: Supple, Nontender Respiratory Exam: Normal Respiratory: Positive: Chest non-tender, No respiratory distress, No accessory muscle use Cardiovascular Exam: Normal Cardiovascular: Positive: RRR, Pulses Normal, Brisk Capillary Refill Musculoskeletal Exam: Other Musculoskeletal: Positive: Edema @ - right foot Neurological Exam: Normal Neurological: Positive: Alert, Muscle Tone Normal Psychological Exam: Normal Skin Exam: Normal Lower Extremity Course/Dx - Course Course Of Treatment: rice, hydrocodone, cam boot, follow with Dr. Mata in 2- 3 days - Differential Dx/Diagnosis Provider Diagnoses: avulsion fx right 5th MT,chronic degenerative changes right knee Discharge - Sign-Out/Discharge Documenting (check all that apply): Patient Departure - Discharge Plan Condition: Stable Disposition: HOME Patient Education Materials: Avulsion Fracture (ED), Foot Fracture in Adults ( ED), R.I.C.E. Treatment (ED) Referrals: Manoj Velasquez DO [Primary Care Provider] - Manoj Mata MD [Medical Doctor] - 2 Days - Billing Disposition and Condition Condition: STABLE Disposition: Home
--- NOTE | 2018-02-22 12:57 | RAD ---
INDICATION: Right foot knee pain for days after a fall COMPARISON: None. TECHNIQUE: 3 views of the right foot and 4 views of the right knee were obtained. FINDINGS: Knee: Degenerative changes of the right knee include narrowing of the medial compartment with marginal osteophyte formation. There is narrowing of the patellofemoral joint on the lateral view. There is no definite acute fracture or dislocation. There is no significant joint effusion. Incidental note is made of calcified atherosclerosis of the visualized arteries. Foot: Depicted best on the oblique view of the right foot is a horizontally oriented and slightly displaced avulsion fracture at the base of the fifth metatarsal. The bones are otherwise grossly intact and appropriately aligned. IMPRESSION: 1. DEGENERATIVE CHANGES OF THE RIGHT KNEE WITHOUT RADIOGRAPHICALLY APPARENT FRACTURE OR DISLOCATION. 2. LIKELY AVULSION FRACTURE AT THE BASE OF THE FIFTH METATARSAL. If the patient's symptoms persist, follow-up imaging is recommended.
== END 2018-02-22 13:20 | disposition home or self-care (01) ==
LOC: UCEAST 11:39
DX: S90.31XA Contusion of right foot, initial encounter (principal); S89.91XA Unspecified injury of right lower leg, initial encounter; W10.9XXA Fall (on) (from) unspecified stairs and steps, initial encounter; Y93.9 Activity, unspecified; Y92.9 Unspecified place or not applicable; M17.11 Unilateral primary osteoarthritis, right knee; E78.5 Hyperlipidemia, unspecified; Z95.810 Presence of automatic (implantable) cardiac defibrillator; Z79.01 Long term (current) use of anticoagulants; Z88.1 Allergy status to other antibiotic agents; Z88.0 Allergy status to penicillin; Z82.49 Family history of ischemic heart disease and other diseases of the circulatory system; Z83.3 Family history of diabetes mellitus
CPT/HCPCS: 99212; G0463